=== PATIENT | male | born 2000 | race Caucasian/White ===

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

== ENCOUNTER 2021-02-21 16:18 | Emergency (ER) | payer OTHER ==
[~2021-02-21] VITALS: Ht 167.6 cm; Wt 100.8 kg
[~2021-02-21 16:18] MED LIST changes: +IBUP-1022 PO; +ROBA500T PO
[2021-02-21 16:19] VITALS: BP 142/92
[2021-02-21] MEDS ORDERED: OMEP-221 PO (16:28)
[2021-02-21] MEDS ORDERED: NAPR-1182 PO (16:28)
[2021-02-21] MEDS ORDERED: TIZA4TAB4 PO (16:28)
[2021-02-21] MEDS ORDERED: CYCL5TAB PO (17:20)
[2021-02-21] MEDS ORDERED: LIDO5DIS41 TD (17:20)
== END 2021-02-21 18:01 | disposition home or self-care (01) ==
LOC: M ED 16:18
DX: S39.012A Strain of muscle, fascia and tendon of lower back, initial encounter (principal); X58.XXXA Exposure to other specified factors, initial encounter; Y92.89 Other specified places as the place of occurrence of the external cause; F90.9 Attention-deficit hyperactivity disorder, unspecified type; Z91.030 Bee allergy status

== ENCOUNTER 2021-02-22 06:53 | Emergency (ER) | payer OTHER ==
[~2021-02-22] VITALS: Ht 167.6 cm; Wt 99.2 kg
[~2021-02-22 06:53] MED LIST changes: +CYCL5TAB PO; +LIDO5DIS41 TD; +NAPR-1182 PO; +OMEP-221 PO; +TIZA4TAB4 PO
[2021-02-22 07:56] LABS: BASO % 0.5 % (0.0-1.0); EOS % 0.3 % (0.0-3.0); HEMATOCRIT 46.7 % (42.0-52.0); HEMOGLOBIN 16.6 g/dl (13.5-17.5); LYMPH % 25.5 % (24.0-44.0); MEAN CORPUSCULAR HEMOGLOBIN 30.7 pg (27.0-33.0); MEAN CORPUSCULAR HGB CONC 35.5 g/dl (32.0-36.5); MEAN CORPUSCULAR VOLUME 86.5 fl (80.0-96.0); MONO # 0.8 10^3/uL (0.0-0.8); MONO % 10.3 % (2.0-8.0); NEUTROPHILS # 4.8 10^3/uL (1.5-8.5); NEUTROPHILS % 63.1 % (36.0-66.0); PLATELET COUNT, AUTOMATED 287 10^3/uL (150-450); WHITE BLOOD COUNT 7.6 10^3/uL (4.0-10.0)
[2021-02-22 08:18] LABS: BILIRUBIN,DIRECT 0.2 MG/DL (0.0-0.2); BILIRUBIN,TOTAL 0.5 MG/DL (0.2-1.0); TOTAL PROTEIN 7.5 GM/DL (6.4-8.2)
[2021-02-22 08:47] VITALS: BP 135/76
== END 2021-02-22 08:49 | disposition home or self-care (01) ==
LOC: M ED 06:53
DX: R10.9 Unspecified abdominal pain (principal); Z91.030 Bee allergy status

== ENCOUNTER 2021-02-24 10:21 | Emergency (ER) | payer OTHER ==
[~2021-02-24] VITALS: Ht 167.6 cm; Wt 99.8 kg
[2021-02-24] MEDS ORDERED: NAPR-1182 (10:39)
[2021-02-24] MEDS ORDERED: methocarbamoL 500 MG TAB PO ONE (11:20)
--- NOTE | 2021-02-24 11:40 | REP ---
INDICATION: back pain/constipation COMPARISON: None. TECHNIQUE: Supine view of the abdomen and pelvis. FINDINGS: Bowel gas pattern is nonspecific and without obstruction or perforation. No organomegaly. No abnormal calcifications. Skeletal structures intact. IMPRESSION: Normal abdominal radiograph. <Electronically signed by Fabian Euceda > 02/24/21 [id number]
[2021-02-24] MEDS ORDERED: KETOROLAC TROMETHAMINE 10 MG TAB PO ONE (12:00)
[2021-02-24] MEDS ORDERED: METH-1164 PO (12:08)
[2021-02-24 12:14] VITALS: BP 158/98
== END 2021-02-24 12:16 | disposition home or self-care (01) ==
LOC: M ED 10:21
DX: M54.5 Low back pain (principal); F90.9 Attention-deficit hyperactivity disorder, unspecified type; Z91.030 Bee allergy status

== ENCOUNTER 2021-02-24 16:29 | Emergency (ER) | payer OTHER ==
[~2021-02-24] VITALS: Ht 167.6 cm; Wt 99.5 kg
[~2021-02-24 16:29] MED LIST changes: +METH-1164 PO; +NAPR-1182; -OMEP-221 PO; +OMEP40CA5 PO; +TIZA10TA PO; -TIZA4TAB4 PO
[2021-02-24] MEDS ORDERED: ISOVUE-370 76% 100ML VIAL As Ordered ONE (19:48)
[2021-02-24 20:31] LABS: BASO # 0.1 10^3/uL (0.0-0.2); BASO % 0.6 % (0.0-1.0); EOS % 0.2 % (0.0-3.0); HEMATOCRIT 46.2 % (42.0-52.0); HEMOGLOBIN 16.1 g/dl (13.5-17.5); LYMPH % 29.2 % (24.0-44.0); MEAN CORPUSCULAR HGB CONC 34.8 g/dl (32.0-36.5); MEAN CORPUSCULAR VOLUME 86.2 fl (80.0-96.0); MONO # 0.9 10^3/uL (0.0-0.8); MONO % 8.5 % (2.0-8.0); NEUTROPHILS # 6.4 10^3/uL (1.5-8.5); NEUTROPHILS % 61.2 % (36.0-66.0); PLATELET COUNT, AUTOMATED 310 10^3/uL (150-450); RED BLOOD COUNT 5.36 10^6/uL (4.30-6.10); WHITE BLOOD COUNT 10.4 10^3/uL (4.0-10.0)
[2021-02-24 20:49] LABS: ERYTHROCYTE SEDIMENTATION RATE 3 mm/hr (0-15)
[2021-02-24 20:55] LABS: ALBUMIN 4.4 GM/DL (3.2-5.2); ALT/SGPT 87 U/L (12-78); BILIRUBIN,TOTAL 0.5 MG/DL (0.2-1.0); BLOOD UREA NITROGEN 7 MG/DL (7-18); CALCIUM LEVEL 9.2 MG/DL (8.5-10.1); CARBON DIOXIDE LEVEL 23 MEQ/L (21-32); CHLORIDE LEVEL 109 MEQ/L (98-107); CREATININE FOR GFR 0.75 MG/DL (0.70-1.30); GLOMERULAR FILTRATION RATE > 60.0 (>60); GLUCOSE, FASTING 90 MG/DL (70-100); POTASSIUM SERUM 3.7 MEQ/L (3.5-5.1); SODIUM LEVEL 141 MEQ/L (136-145); TOTAL PROTEIN 7.6 GM/DL (6.4-8.2)
[2021-02-24] MEDS ORDERED: KETOROLAC 30 MG/ML 1ML VIAL IV ONE (21:35)
[2021-02-24] MEDS ORDERED: NORCO 5/325MG TABLET (BULK FOR ED) PO ONE (22:15)
[2021-02-24 22:29] VITALS: BP 128/80
== END 2021-02-24 22:30 | disposition home or self-care (01) ==
LOC: M ED 16:29
DX: M62.830 Muscle spasm of back (principal); Z91.030 Bee allergy status
CPT/HCPCS: 74177; 80053; 81001; 85025; 85652; 86140; 96374; 99284; J1885; Q9967

== ENCOUNTER 2021-02-26 16:56 | Emergency (ER) | payer OTHER ==
[~2021-02-26] VITALS: Ht 167.6 cm; Wt 98.9 kg
[~2021-02-26 16:56] MED LIST changes: +OMEP-221 PO; -OMEP40CA5 PO; -TIZA10TA PO; +TIZA4TAB4 PO
[2021-02-26 17:33] LABS: BASO # 0.1 10^3/uL (0.0-0.2); BASO % 0.6 % (0.0-1.0); EOS # 0.1 10^3/uL (0.0-0.5); EOS % 0.5 % (0.0-3.0); HEMATOCRIT 46.8 % (42.0-52.0); HEMOGLOBIN 16.2 g/dl (13.5-17.5); LYMPH # 3.1 10^3/uL (1.5-5.0); LYMPH % 30.3 % (24.0-44.0); MEAN CORPUSCULAR HEMOGLOBIN 30.5 pg (27.0-33.0); MEAN CORPUSCULAR HGB CONC 34.6 g/dl (32.0-36.5); MEAN CORPUSCULAR VOLUME 88.1 fl (80.0-96.0); MONO % 9.9 % (2.0-8.0); NEUTROPHILS % 58.4 % (36.0-66.0); PLATELET COUNT, AUTOMATED 297 10^3/uL (150-450); RED BLOOD COUNT 5.31 10^6/uL (4.30-6.10); WHITE BLOOD COUNT 10.3 10^3/uL (4.0-10.0)
[2021-02-26 18:03] LABS: ALBUMIN 4.6 GM/DL (3.2-5.2); ALT/SGPT 60 U/L (12-78); BILIRUBIN,DIRECT 0.1 MG/DL (0.0-0.2); BILIRUBIN,TOTAL 0.4 MG/DL (0.2-1.0); BLOOD UREA NITROGEN 6 MG/DL (7-18); CARBON DIOXIDE LEVEL 26 MEQ/L (21-32); CHLORIDE LEVEL 107 MEQ/L (98-107); CREATININE FOR GFR 0.82 MG/DL (0.70-1.30); GLOMERULAR FILTRATION RATE > 60.0 (>60); GLUCOSE, FASTING 93 MG/DL (70-100); LIPASE 72 U/L (73-393); POTASSIUM SERUM 3.9 MEQ/L (3.5-5.1); SODIUM LEVEL 139 MEQ/L (136-145); TOTAL PROTEIN 7.6 GM/DL (6.4-8.2)
--- NOTE | 2021-02-26 19:20 | REP ---
INDICATION: upper abd pain/diarrhea COMPARISON: None. TECHNIQUE: Real time almonte scale ultrasound examination using curved array transducer. FINDINGS: Liver is normal in contour, size, and echogenicity without focal hepatic lesions identified. Pancreas is incompletely evaluated due to interposed bowel gas. The gallbladder is normal and without gallstones, wall thickening, or pericholecystic fluid. No biliary ductal dilatation is appreciated and the common bile duct measures 4.2 mm diameter. Right kidney is normal in reniform shape without hydronephrosis and measures 11.1 x 5.5 x 5.1 cm. No ascites in the visualized right upper quadrant. IMPRESSION: Normal limited right upper quadrant ultrasound <Electronically signed by Fabian Euceda > 02/26/21 [id number]
[2021-02-26 19:54] VITALS: BP 132/88
== END 2021-02-26 19:57 | disposition home or self-care (01) ==
LOC: M ED 16:56
DX: R10.30 Lower abdominal pain, unspecified (principal); R19.7 Diarrhea, unspecified; F90.9 Attention-deficit hyperactivity disorder, unspecified type

== ENCOUNTER 2021-02-28 21:55 | Emergency (ER) | payer OTHER ==
[~2021-02-28] VITALS: Ht 167.6 cm; Wt 100.5 kg
[2021-02-28 21:56] VITALS: BP 140/87
== END 2021-03-01 05:53 | disposition left against medical advice (07) ==
LOC: M ED 21:55
DX: Z53.21 Procedure and treatment not carried out due to patient leaving prior to being seen by health care provider (principal)

== ENCOUNTER 2021-03-01 21:01 | Emergency (ER) | payer OTHER ==
[~2021-03-01] VITALS: Ht 167.6 cm; Wt 100.2 kg
[2021-03-01 21:02] VITALS: BP 144/90
== END 2021-03-02 | disposition left against medical advice (07) ==
LOC: M ED 21:01
DX: Z53.21 Procedure and treatment not carried out due to patient leaving prior to being seen by health care provider (principal)

== ENCOUNTER 2021-03-02 18:44 | Emergency (ER) | payer OTHER ==
[~2021-03-02] VITALS: Ht 167.6 cm; Wt 99.1 kg
[2021-03-02] MEDS ORDERED: diazePAM 5MG TABLET PO ONE (21:25)
[2021-03-02 22:49] VITALS: BP 143/67
== END 2021-03-02 22:50 | disposition home or self-care (01) ==
LOC: M ED 18:44
DX: M54.5 Low back pain (principal); Z91.030 Bee allergy status

== ENCOUNTER → 2021-03-02 | Outpatient (CLI) | payer OTHER ==
--- NOTE | 2021-03-02 13:35 | REP ---
INDICATION: LOW BACK PAIN. COMPARISON: None. TECHNIQUE: Five views FINDINGS: Five views of the lumbosacral spine show no acute fracture, dislocation or subluxation. The intervertebral disc spaces are symmetric and well maintained. There is no spondylolysis or spondylolisthesis. The pedicles are intact bilaterally and there is no destructive osseous lesion. IMPRESSION: Unremarkable lumbosacral spine series. <Electronically signed by Sanket Vizcaino > 03/02/21 [id number]
== END ==
LOC: M PLALAB 10:44 → M PLAIMG 10:44
PROVIDERS: ATTEND Nurse Practitioner Adult Health
DX: M54.5 Low back pain (principal)

== ENCOUNTER 2021-03-03 10:43 | Emergency (ER) | payer OTHER ==
[~2021-03-03] VITALS: Ht 167.6 cm; Wt 99.5 kg
[~2021-03-03 10:43] MED LIST changes: -OMEP-221 PO; +OMEP40CA5 PO; +TIZA10TA PO; -TIZA4TAB4 PO
[2021-03-03 13:35] LABS: AMPHETAMINES LEVEL URINE NEGATIVE (NEGATIVE); BARBITURATES URINE NEGATIVE (NEGATIVE); BENZODIAZEPINES URINE NEGATIVE (NEGATIVE); CANNABINOIDS URINE NEGATIVE (NEGATIVE); COCAINE METABOLITE URINE NEGATIVE (NEGATIVE); METHADONE URINE NEGATIVE (NEGATIVE); OPIATES URINE NEGATIVE (NEGATIVE); PHENCYCLIDINE URINE NEGATIVE (NEGATIVE)
[2021-03-03 13:57] LABS: HEMOGLOBIN 16.8 g/dl (13.5-17.5); MEAN CORPUSCULAR HGB CONC 34.3 g/dl (32.0-36.5); MEAN CORPUSCULAR VOLUME 87.5 fl (80.0-96.0); PLATELET COUNT, AUTOMATED 294 10^3/uL (150-450); WHITE BLOOD COUNT 8.9 10^3/uL (4.0-10.0)
[2021-03-03 14:33] LABS: ACETAMINOPHEN LEVEL < 2.0 UG/ML (10.0-30.0); ALBUMIN 4.6 GM/DL (3.2-5.2); ALT/SGPT 37 U/L (12-78); BILIRUBIN,DIRECT 0.1 MG/DL (0.0-0.2); BILIRUBIN,TOTAL 0.5 MG/DL (0.2-1.0); BLOOD UREA NITROGEN 14 MG/DL (7-18); CALCIUM LEVEL 9.4 MG/DL (8.5-10.1); CARBON DIOXIDE LEVEL 28 MEQ/L (21-32); CHLORIDE LEVEL 107 MEQ/L (98-107); ETHYL ALCOHOL (ETHANOL) < 0.003 % (0.000-0.010); GLOMERULAR FILTRATION RATE > 60.0 (>60); GLUCOSE, FASTING 90 MG/DL (70-100); POTASSIUM SERUM 4.4 MEQ/L (3.5-5.1); SALICYLATE LEVEL < 1.7 MG/DL (5.0-30.0); SODIUM LEVEL 140 MEQ/L (136-145); TOTAL PROTEIN 7.8 GM/DL (6.4-8.2)
[2021-03-03 15:16] VITALS: BP 145/89
== END 2021-03-03 15:59 | disposition home or self-care (01) ==
LOC: M ED 10:43
DX: F41.9 Anxiety disorder, unspecified (principal); Z91.030 Bee allergy status

== ENCOUNTER 2021-03-07 08:08 | Inpatient (IN) | payer MEDICAID, OTHER ==
[~2021-03-07] VITALS: Ht 170.2 cm; Wt 99.4 kg
[~2021-03-07 08:08] MED LIST changes: +OMEP-221 PO; -OMEP40CA5 PO; -TIZA10TA PO; +TIZA4TAB4 PO
[2021-03-07] MEDS ORDERED: NICOTINE 21MG/24HR 1 EA TRANSDERMAL TD SCH (09:00)
--- NOTE | 2021-03-07 10:21 | REP ---
INDICATION: left testicle pain COMPARISON: None. TECHNIQUE: Strickland scale and color Doppler evaluation using linear and curved array transducer with color Doppler evaluation. FINDINGS: The testicles and epididymi are relatively normal in contour, size, echogenicity, vascularity and overall appearance. There is no evidence for intratesticular mass lesion, infectious/inflammatory process, or torsion. No obvious hydroceles or varicoceles are identified. Right testicle measures 3.1 x 2.3 x 3.0 cm. Left testicle measures 3.7 x 2.2 x 2.7 cm. IMPRESSION: normal scrotal ultrasound. <Electronically signed by Fabian Euceda > 03/07/21 [id number]
[2021-03-07] MEDS ORDERED: ALPRAZolam 0.25 MG TAB PO ONE (12:10)
[2021-03-07] MEDS ORDERED: XANA0.25 PO (13:06)
[2021-03-07 15:08] LABS: BASO # 0.1 10^3/uL (0.0-0.2); BASO % 0.6 % (0.0-1.0); EOS % 0.2 % (0.0-3.0); HEMATOCRIT 47.5 % (42.0-52.0); HEMOGLOBIN 16.5 g/dl (13.5-17.5); LYMPH # 2.7 10^3/uL (1.5-5.0); LYMPH % 30.2 % (24.0-44.0); MEAN CORPUSCULAR HEMOGLOBIN 30.2 pg (27.0-33.0); MEAN CORPUSCULAR HGB CONC 34.7 g/dl (32.0-36.5); MEAN CORPUSCULAR VOLUME 86.8 fl (80.0-96.0); MONO # 0.7 10^3/uL (0.0-0.8); MONO % 7.8 % (2.0-8.0); NEUTROPHILS # 5.5 10^3/uL (1.5-8.5); NEUTROPHILS % 60.8 % (36.0-66.0); PLATELET COUNT, AUTOMATED 285 10^3/uL (150-450); RED BLOOD COUNT 5.47 10^6/uL (4.30-6.10)
[2021-03-07] MEDS ORDERED: IBUPROFEN 800 MG TAB PO ONE (15:20)
[2021-03-07 15:30] LABS: AMPHETAMINES LEVEL URINE NEGATIVE (NEGATIVE); BARBITURATES URINE NEGATIVE (NEGATIVE); BENZODIAZEPINES URINE NEGATIVE (NEGATIVE); CANNABINOIDS URINE NEGATIVE (NEGATIVE); COCAINE METABOLITE URINE NEGATIVE (NEGATIVE); METHADONE URINE NEGATIVE (NEGATIVE); OPIATES URINE NEGATIVE (NEGATIVE); PHENCYCLIDINE URINE NEGATIVE (NEGATIVE)
[2021-03-07 15:50] LABS: ACETAMINOPHEN LEVEL < 2.0 UG/ML (10.0-30.0); ALBUMIN 3.9 GM/DL (3.2-5.2); ALT/SGPT 30 U/L (12-78); BILIRUBIN,DIRECT 0.1 MG/DL (0.0-0.2); BILIRUBIN,TOTAL 0.4 MG/DL (0.2-1.0); BLOOD UREA NITROGEN 6 MG/DL (7-18); CALCIUM LEVEL 9.1 MG/DL (8.5-10.1); CARBON DIOXIDE LEVEL 26 MEQ/L (21-32); CHLORIDE LEVEL 110 MEQ/L (98-107); CREATININE FOR GFR 0.77 MG/DL (0.70-1.30); ETHYL ALCOHOL (ETHANOL) < 0.003 % (0.000-0.010); GLOMERULAR FILTRATION RATE > 60.0 (>60); GLUCOSE, FASTING 106 MG/DL (70-100); POTASSIUM SERUM 3.9 MEQ/L (3.5-5.1); SALICYLATE LEVEL < 1.7 MG/DL (5.0-30.0); SODIUM LEVEL 143 MEQ/L (136-145); TOTAL PROTEIN 7.6 GM/DL (6.4-8.2)
[2021-03-07 16:09] LABS: RSV AMPLIFICATION NEGATIVE (NEGATIVE)
[2021-03-07] MEDS ORDERED: MAALOX 30 ML SUSP *UDC PO PRN (17:05)
[2021-03-07] MEDS ORDERED: MOM 30ML SUSPENSION UDC PO PRN (17:05)
[2021-03-07 18:38] VITALS: BP 151/96
[2021-03-07] MEDS: OLANZapine ORAL DISINTEGRATING TAB 5MG PO PRN (19:28)
[2021-03-07] MEDS ORDERED: IBUPROFEN 400MG TAB PO PRN (23:00)
[2021-03-08 06:28] VITALS: BP 121/70
[2021-03-08] MEDS: OLANZapine ORAL DISINTEGRATING TAB 5MG PO PRN (10:42)
--- NOTE | 2021-03-08 11:19 | MHHPEPDOC ---
General Date Of Admission: Mar 07, 2021 Legal Status: 9.39 Chief Complaint Highlight about hearing voices and feeling suicidal. I just wanted to get some attention for my back problem. ". History of Present Illness HISTORY OF THE PRESENT ILLNESS: Patient is a 21 -year-old , male, who [has no previous psychiatric history daughter. Patient came to the emergency room initially with the complain about his back which has been bothering him since January of this year. He stated that he was having back pain but his primary doctor could not fix it and discharged him so he came to the emergency room seeking help but when tolerated that there was nothing wrong and he can be discharged patient stated that he got upset and he told them that he was hearing voices and having thoughts of suicide. Patient stated that he is not depressed and he has no suicidal thoughts and he never heard any voices he just slightly so he can get admitted so he can get further treatment for his back pain. He does not appear to be in any acute distress and is not showing any other psychotic symptoms. He stated that he has been having back problem for 2 months and no one can seem to figure out what is wrong and he is concerned that he may have the same kind of problem like his father who apparently had to some type of medical issues. He is having more anxiety and does not feel comfortable for being in psychiatric unit and does not feel he needs any psychiatric treatment and is requesting discharge ELEAZAR.]. Psychiatric Review of Systems Depression (2 or more weeks): denies (Patient claims he lied about depression) Aparna (4 or more days of): denies Psychosis: denies PTSD: denies Anxiety: situational anxiety Past Psychiatric History Previous Psychiatric Diagnosis: . No previous treatment no previous hospitalization Previous Psychiatric Admissions: . Suicide Attempts: . No previous suicidal attempt Psychiatric Follow-up: . Not in any active treatment Psychiatric medications: . No psychotropic medication Past Medical History Medical Problems Been having back pain for the past 2 months Head Injury: No Seizures: No Hospitalizations: No Surgeries: No Family Medical/Psychiatric HX Medical Problems Noncontributory Psychiatric Disorders: No Addiction: No Suicide Attemps/Completions: No Addiction History denies (Tox screen is negative) Social History Childhood: . Unremarkable Abuse/Trauma:. Denies any abuse history Current Living Situation: . Lives with his parents Education: . High school Employment: . Works at [employer] Social Support: . Parent Legal: . No legal issues Marital: . Single Mental Status Examination General Appearance: ds/not appear stated age Build: average Demeanor: average Eye Contact: average Activity: average Behavior: cooperative Speech: clear, spontaneous, normal volume Mood: euthymic, anxious Mood Denies any ongoing depression or anxiety Affect: appropriate, congruent, anxious Thought Process: logical/linear Thought Content (Delusions): none reported, denies SI, HI, AVH Thought Content (Other): none reported Thought Content (Aggressive): none reported Perception (Hallucinations): none reported Perception (Other): none reported Cognition (Impairment of): none reported Cognition(Intelligence Est.): average Oriented: Awake, Alert, Oriented times three Insight: fair Judgment: Poor Psychosis: Denies Diagnoses Adjustment disorder with mixed emotion A-FIB/CHADSVASC A-FIB History Current/History of A-Fib/PAF?: No Current PO Anticoag Therapy: No Age/Risk Factor Scoring CHADSVASC: CHADSVASC Response (Comments) Value Age Risk Factor Age < 65 years old 0 Gender Risk Factor Male 0 Hx of CHF No 0 Hx of HTN No 0 Hx of Stroke/TIA/or VTE No 0 Hx of Diabetes No 0 Hx of Vascular Disease No 0 Total 0 Treatment Treatment ordered: NONE Assessment The patient does not appear to be clinically depressed and does not appear to be suicidal and patient strongly denies any.We will discharge since there is no grounds for 939 legal status Initial Treatment Plan 1. Patient was admitted on a 9.39 status. 2. Complete history was obtained. 3. With patients permission, family will be contacted and database will be expanded. 4. Patients medication regimen will be reviewed and changed accordingly. 5. Patient will be provided with protected environment. 6. Patient will be treated with individual, group, and milieu therapies. 7. Patient will receive supportive psych-education. 8. Discharge planning will commence immediately. 9. Outpatient follow-up treatment will be strongly recommended. 10. The initial treatment plan will focus initially on: * Depression. * Risk for suicide. ESTIMATED LENGTH OF STAY discharged today TIME SPENT COUNSELING AND COORDINATING INITIAL CARE: 40 minutes. Tobacco Cessation Screen If Patient is a Smoker Patient is a non-smoker N/A-No Antipsychotics Vital Signs Vital Signs Date Time Temp Pulse Resp B/P (MAP) Pulse Ox O2 Delivery O2 Flow Rate FiO2 03/08/21 06:28 98.4 102 20 121/70 (87) 96 Room Air Laboratory Data 24H Labs Laboratory Tests 2 03/07/21 09:54: Urine Color STRAW, Urine Appearance CLEAR, Urine pH 7.0, Urine Specific Stephenson 1.004, Urine Protein NEGATIVE, Urine Glucose (UA) NEGATIVE, Urine Ketones NEGATIVE, Urine Blood NEGATIVE, Urine Nitrite NEGATIVE, Urine Bilirubin NEGATIVE , Urine Urobilinogen 0.2, Urine Leukocyte Esterase NEGATIVE, Urine WBC (Auto) 0, Urine RBC (Auto) 1, Urine Hyaline Casts (Auto) 0, Urine Bacteria (Auto) NEGATIVE, Urine Squamous Epithelial Cells 0, Urine Sperm (Auto) 03/07/21 14:56: Immature Granulocyte % (Auto) 0.4, Neutrophils (%) (Auto) 60.8, Lymphocytes (%) (Auto) 30.2, Monocytes (%) (Auto) 7.8, Eosinophils (%) (Auto) 0.2, Basophils (%) (Auto) 0.6, Neutrophils # (Auto) 5.5, Lymphocytes # (Auto) 2.7, Monocytes # (Auto) 0.7, Eosinophils # (Auto) 0.0, Basophils # (Auto) 0.1, Nucleated Red Blood Cells % (auto) 0.0, Anion Gap 7L, Glomerular Filtration Rate > 60.0, Calcium Level 9.1, Total Bilirubin 0.4, Direct Bilirubin 0.1, Aspartate Amino Transf (AST/SGOT) 21, Alanine Aminotransferase (ALT/SGPT) 30, Alkaline Phosphat ase 186H, Total Protein 7.6, Albumin 3.9, Albumin/Globulin Ratio 1.1, Thyroid Stimulating Hormone (TSH) 1.110, Salicylates Level < 1.7L, Urine Opiates Screen NEGATIVE, Urine Methadone Screen NEGATIVE, Acetaminophen Level < 2.0L, Urine Barbiturates Screen NEGATIVE, Urine Phencyclidine Screen NEGATIVE, Urine Amphetamines Screen NEGATIVE, Urine Benzodiazepines Screen NEGATIVE, Urine Cocaine Metabolite Screen NEGATIVE, Urine Cannabinoids Screen NEGATIVE, Ethyl Alcohol Level < 0.003 03/07/21 15:15: Coronavirus (COVID-19)(PCR) NEGATIVE, Influenza Type A (RT-PCR) NEGATIVE, Influe nza Type B (RT-PCR) NEGATIVE, Respiratory Syncytial Virus (PCR) NEGATIVE CBC/BMP Laboratory Tests 03/07/21 14:56 Medications No Active Prescriptions or Reported Meds Allergies Coded Allergies: bee venom protein (honey bee) (Verified Allergy, Unknown, throat swelling, 02/21/21) FLORIAN KAN M.D. Mar 08, 2021 10:30
--- NOTE | 2021-03-08 15:10 | CR.PDOC ---
General Date of Consultation: Mar 08, 2021 Referring Provider: Heron Smith MD Attending Physician: CELSO TRIVEDI MD Consultation REASON FOR CONSULTATION/CHIEF COMPLAINT: [Medical management ,back pain]. HISTORY OF PRESENT ILLNESS: [This is a 21 years old white male past medical history of anxiety disorder, as per family he has been obsessed with his health and he thinks he is actively dying, first he complained of abdominal pain he saw his PCP who referred him to GI again he complained of scrotal pain in ED where he had a scrotal sonogram done which was negative now is complaining of back pain. Patient is very anxious and not a good historian history was obtained all from his medical records.]. ALLERGIES: Please see below. HOME MEDICATIONS: Please see below. PAST MEDICAL HISTORY: Anxiety disorder PAST SURGICAL HISTORY: None FAMILY HISTORY: Anxiety disorder in the family including his father SOCIAL HISTORY: He is single lives with his family denies smoking alcohol or drug abuse REVIEW OF SYSTEMS: CONSTITUTIONAL: [Generalized anxiety]. HEENT: [None]. CARDIOVASCULAR: [None r]. RESPIRATORY: [None]. GENITOURINARY: [None]. MUSCULOSKELETAL: [Back pain]. GASTROINTESTINAL: [Benign]. SKIN: [None]. NEUROLOGICAL: [None]. PSYCHIATRIC: [Anxiety disorder]. ENDOCRINE: [None]. HEMATOLOGIC/LYMPHATIC: [None]. ALLERGIC/IMMUNOLOGIC: [None]. PHYSICAL EXAMINATION: VITAL SIGNS: Please see below. GENERAL APPEARANCE: [Within normal limit afebrile]. HEENT: [PERRLA extraocular muscles intact]. RESPIRATORY: [Clear to A&P]. CARDIOVASCULAR: [S1-S2 regular]. ABDOMEN: [Benign]. EXTREMITIES: [No clubbing sinus edema]. NEUROLOGICAL: [No focal motor or sensory deficit examination of the cervical thoracic lumbar spine is within normal range]. PSYCHIATRIC: [Normal]. LABORATORY DATA: Please see below. ASSESSMENT/PLAN: #1 Anxiety disorder #2 musculoskeletal pain #3 auditory hallucinations and suicidal Patient examination of his cervical thoracic lumbar spine is within normal limit most likely musculoskeletal pain Ibuprofen as needed for back pain as per orders, no further medical intervention needed at the present time. Further work-up if needed as an outpatient with PCP Psychiatric management and counseling as per psychiatric department Vital Signs/I&O Vital Signs Date Time Temp Pulse Resp B/P (MAP) Pulse Ox O2 Delivery O2 Flow Rate FiO2 7/14/21 06:28 98.4 102 20 121/70 (87) 96 Room Air Laboratory Data Labs 24H Laboratory Tests 2 03/07/21 15:15: Coronavirus (COVID-19)(PCR) NEGATIVE, Influenza Type A (RT-PCR) NEGATIVE, Influenza Type B (RT-PCR) NEGATIVE, Respiratory Syncytial Virus (PCR) NEGATIVE Allergies Coded Allergies: bee venom protein (honey bee) (Verified Allergy, Unknown, throat swelling, 02/21/21) Home Medications No Active Prescriptions or Reported Meds CELSO TRIVEDI MD Mar 08, 2021 15:10
--- NOTE | 2021-03-10 11:12 | MHDSPDOC ---
[facility] Discharge Summary Discharge Summary DATE OF ADMISSION: Mar 07, 2021 at 17:05 DATE OF DISCHARGE: Mar 08, 2021 at 15:07 DISCHARGE DIAGNOSES: 1.. Adjustment disorder with mixed emotion 2.. Rule out somatization disorder REASON FOR ADMISSION: 21-year-old male with no prior psychiatric history admitted after he reported depression and suicidal thoughts. After admission the patient however claims that he lied about his depression just to get admitted so he can get treatment for his back pain. Patient apparently has been complaining of problem with his back for the past month and had a several visits to the emergency room and his primary care doctor and they could not find any abnormal finding and patient stated that he was upset and frustrated that nobody can help and that is why he lied about depression and suicidal thoughts. CONSULTANTS INVOLVED: TREATMENT AND PROGRESS ON THE UNIT : The patient maintains that he has no emotional problem and he is not depressed and he does not have any suicidal plan or thoughts and only came in because he wanted to have his back treated. He was demanding discharge and continues to deny any psychiatric issues. He denies any need for psychotropic medicine and does not want any psychiatric follow-up treatment. HOSPITAL COURSE: He continued to deny any psychiatric problem and maintained good control and will be discharged per his request since he does not meet the listing for involuntary retention. DISCHARGE ASSESSMENT: Patient does not appear to be psychotic depressed or suicidal MENTAL STATUS EXAMINATION ON DISCHARGE: Patient is a 21-year old male, who is in no acute distress. Speech is coherent rational. Language skills are fair. Thought processes including: Organized. Thought content: Somewhat preoccupied with the somatic issues but denies any depression or psychosis. Abstract reasoning, and computation: Fair. Description of associations: Organized. Description of abnormal or psychotic thoughts: No gross psychotic symptoms. Judgment: Fair. Insight: Fair. Orientation to well oriented. Recent and remote memory: No impairment. Attention span and concentration: Fair. Language:. Fund of knowledge:. Mood: Moderately anxious but denies any depressed mood. Affect: Good range and appropriate. MEDICATIONS ON DISCHARGE: -For. No psychotropic medicine was given -For. -For. PLAN/FOLLOWUP ARRANGEMENTS: Patient declined any mental health appointment. The amount of time spent in the coordination of care for this patient was approximately 35 minutes. ETOH/Disorder Med Rx ETOH/DRUG DISORDER RX: N/A Vital Signs/I&Os Vital Signs Date Time Temp Pulse Resp B/P (MAP) Pulse Ox O2 Delivery O2 Flow Rate FiO2 03/08/21 06:28 98.4 102 20 121/70 (87) 96 Room Air Medications No Active Prescriptions or Reported Meds Allergies Coded Allergies: bee venom protein (honey bee) (Verified Allergy, Unknown, throat swelling, 02/21/21) FLORIAN KAN M.D. Mar 10, 2021 11:07
== END 2021-03-08 15:07 | disposition home or self-care (01) | DRG 755 ==
LOC: M ED 08:08 → M ED INP 17:05 → M PSY 18:24
PROVIDERS: ADMIT Psychiatry & Neurology Psychiatry; ATTEND Psychiatry & Neurology Psychiatry
DX: F43.25 Adjustment disorder with mixed disturbance of emotions and conduct (principal); F45.0 Somatization disorder; Z20.822 Contact with and (suspected) exposure to COVID-19; Z91.030 Bee allergy status

== ENCOUNTER 2021-03-09 19:49 | Emergency (ER) | payer MEDICAID, OTHER ==
[~2021-03-09] VITALS: Ht 167.6 cm; Wt 101.6 kg
[~2021-03-09 19:49] MED LIST changes: +XANA0.25 PO
[2021-03-09 19:50] VITALS: BP 141/85
== END 2021-03-09 22:01 | disposition left against medical advice (07) ==
LOC: M ED 19:49
DX: Z53.21 Procedure and treatment not carried out due to patient leaving prior to being seen by health care provider (principal)

== ENCOUNTER 2021-03-10 11:34 | Emergency (ER) | payer MEDICAID, OTHER ==
[~2021-03-10] VITALS: Ht 167.6 cm; Wt 100.9 kg
[2021-03-10 13:29] LABS: BASO # 0.1 10^3/uL (0.0-0.2); BASO % 0.7 % (0.0-1.0); EOS # 0.1 10^3/uL (0.0-0.5); EOS % 0.5 % (0.0-3.0); HEMATOCRIT 46.1 % (42.0-52.0); HEMOGLOBIN 15.9 g/dl (13.5-17.5); LYMPH # 2.3 10^3/uL (1.5-5.0); LYMPH % 23.7 % (24.0-44.0); MEAN CORPUSCULAR HGB CONC 34.5 g/dl (32.0-36.5); MONO # 1.4 10^3/uL (0.0-0.8); MONO % 14.3 % (2.0-8.0); NEUTROPHILS # 5.7 10^3/uL (1.5-8.5); NEUTROPHILS % 60.3 % (36.0-66.0); PLATELET COUNT, AUTOMATED 286 10^3/uL (150-450); WHITE BLOOD COUNT 9.5 10^3/uL (4.0-10.0)
[2021-03-10 14:02] LABS: ALBUMIN 3.9 GM/DL (3.2-5.2); ALT/SGPT 43 U/L (12-78); BILIRUBIN,DIRECT < 0.1 MG/DL (0.0-0.2); BILIRUBIN,TOTAL 0.4 MG/DL (0.2-1.0); BLOOD UREA NITROGEN 12 MG/DL (7-18); CALCIUM LEVEL 8.6 MG/DL (8.5-10.1); CARBON DIOXIDE LEVEL 24 MEQ/L (21-32); CHLORIDE LEVEL 110 MEQ/L (98-107); GLOMERULAR FILTRATION RATE > 60.0 (>60); GLUCOSE, FASTING 80 MG/DL (70-100); LIPASE 78 U/L (73-393); POTASSIUM SERUM 3.9 MEQ/L (3.5-5.1); SODIUM LEVEL 139 MEQ/L (136-145); TOTAL PROTEIN 7.3 GM/DL (6.4-8.2)
[2021-03-10 14:33] VITALS: BP 127/85
--- NOTE | 2021-03-11 10:49 | ECGEPIP ---
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 Order Number: [id number] Reading MD: Bri Stock Measurements Intervals [place] Rate: 117 P: 48 WY: 136 QRS: 42 QRSD: 90 T: 29 QT: 302 QTc: 421 Interpretive Statements Sinus tachycardia increased rate 03/01/21 Electronically Signed on 03-11-2021 10:49:28 EDT by Bri Stock
== END 2021-03-10 14:52 | disposition home or self-care (01) ==
LOC: M ED 11:34
DX: R19.7 Diarrhea, unspecified (principal); K62.5 Hemorrhage of anus and rectum; F41.9 Anxiety disorder, unspecified; S13.4XXA Sprain of ligaments of cervical spine, initial encounter; X58.XXXA Exposure to other specified factors, initial encounter; Y92.89 Other specified places as the place of occurrence of the external cause; Z91.030 Bee allergy status

== ENCOUNTER 2021-03-12 15:31 | Emergency (ER) | payer OTHER ==
[~2021-03-12] VITALS: Ht 167.6 cm; Wt 100.7 kg
[2021-03-12 17:03] LABS: HEMATOCRIT 45.6 % (42.0-52.0); HEMOGLOBIN 15.7 g/dl (13.5-17.5); MEAN CORPUSCULAR HGB CONC 34.4 g/dl (32.0-36.5); MEAN CORPUSCULAR VOLUME 87.2 fl (80.0-96.0); PLATELET COUNT, AUTOMATED 260 10^3/uL (150-450); RED BLOOD COUNT 5.23 10^6/uL (4.30-6.10)
[2021-03-12 17:39] LABS: ACETAMINOPHEN LEVEL < 2.0 UG/ML (10.0-30.0); ALBUMIN 3.6 GM/DL (3.2-5.2); ALT/SGPT 112 U/L (12-78); BILIRUBIN,DIRECT < 0.1 MG/DL (0.0-0.2); BILIRUBIN,TOTAL 0.2 MG/DL (0.2-1.0); BLOOD UREA NITROGEN 13 MG/DL (7-18); CALCIUM LEVEL 8.7 MG/DL (8.5-10.1); CARBON DIOXIDE LEVEL 24 MEQ/L (21-32); CHLORIDE LEVEL 110 MEQ/L (98-107); CREATININE FOR GFR 0.83 MG/DL (0.70-1.30); ETHYL ALCOHOL (ETHANOL) < 0.003 % (0.000-0.010); GLOMERULAR FILTRATION RATE > 60.0 (>60); GLUCOSE, FASTING 122 MG/DL (70-100); POTASSIUM SERUM 3.9 MEQ/L (3.5-5.1); SALICYLATE LEVEL < 1.7 MG/DL (5.0-30.0); SODIUM LEVEL 142 MEQ/L (136-145); TOTAL PROTEIN 7.2 GM/DL (6.4-8.2)
--- NOTE | 2021-03-12 18:01 | REP ---
INDICATION: right back pain and radicular symptoms. COMPARISON: None. FINDINGS: Five views of the lumbosacral spine show no acute fracture, dislocation or subluxation. The intervertebral disc spaces are symmetric and well maintained. There is no spondylolysis or spondylolisthesis. The pedicles are intact bilaterally and there is no destructive osseous lesion. Lateral view shows slight loss of lordosis which may reflect some mild spasm IMPRESSION: Some mild loss of lordosis on the lateral view which may reflect spasm. Otherwise unremarkable lumbosacral spine series. Stable exam from 03/02/2021. <Electronically signed by Marin Nelson > 03/12/21 [id number]
[2021-03-12] MEDS ORDERED: APAP325T4 PO (19:14)
[2021-03-12] MEDS ORDERED: XANA0.25 PO (19:14)
[2021-03-12 19:41] LABS: AMPHETAMINES LEVEL URINE NEGATIVE (NEGATIVE); BARBITURATES URINE NEGATIVE (NEGATIVE); BENZODIAZEPINES URINE NEGATIVE (NEGATIVE); CANNABINOIDS URINE NEGATIVE (NEGATIVE); COCAINE METABOLITE URINE NEGATIVE (NEGATIVE); METHADONE URINE NEGATIVE (NEGATIVE); OPIATES URINE NEGATIVE (NEGATIVE); PHENCYCLIDINE URINE NEGATIVE (NEGATIVE)
[2021-03-12] MEDS ORDERED: ACETAMINOPHEN TAB 650MG DOSE (2X325MG) PO ONE (19:55)
[2021-03-12] MEDS ORDERED: CYCL5TAB PO (22:22)
[2021-03-12] MEDS ORDERED: IBUP-1022 PO (22:22)
[2021-03-12 22:47] VITALS: BP 127/82
[2021-03-13] MEDS ORDERED: IBUP-1022 PO (18:13)
[2021-03-13] MEDS ORDERED: CYCL5TAB PO (18:13)
== END 2021-03-12 23:08 | disposition home or self-care (01) ==
LOC: M ED 15:31
DX: R45.851 Suicidal ideations (principal); M54.5 Low back pain; F33.9 Major depressive disorder, recurrent, unspecified; Z91.030 Bee allergy status

== ENCOUNTER 2021-03-13 13:13 | Emergency (ER) | payer OTHER ==
[~2021-03-13] VITALS: Ht 170.2 cm; Wt 99.8 kg
[~2021-03-13 13:13] MED LIST changes: +APAP325T4 PO
[2021-03-13 14:56] LABS: HEMATOCRIT 45.7 % (42.0-52.0); HEMOGLOBIN 15.7 g/dl (13.5-17.5); MEAN CORPUSCULAR HGB CONC 34.4 g/dl (32.0-36.5); MEAN CORPUSCULAR VOLUME 87.4 fl (80.0-96.0); PLATELET COUNT, AUTOMATED 270 10^3/uL (150-450); RED BLOOD COUNT 5.23 10^6/uL (4.30-6.10); WHITE BLOOD COUNT 8.1 10^3/uL (4.0-10.0)
[2021-03-13 15:25] LABS: ACETAMINOPHEN LEVEL < 2.0 UG/ML (10.0-30.0); ALBUMIN 3.9 GM/DL (3.2-5.2); ALT/SGPT 185 U/L (12-78); BILIRUBIN,DIRECT < 0.1 MG/DL (0.0-0.2); BILIRUBIN,TOTAL 0.3 MG/DL (0.2-1.0); BLOOD UREA NITROGEN 12 MG/DL (7-18); CALCIUM LEVEL 9.1 MG/DL (8.5-10.1); CARBON DIOXIDE LEVEL 23 MEQ/L (21-32); CHLORIDE LEVEL 109 MEQ/L (98-107); CREATININE FOR GFR 0.69 MG/DL (0.70-1.30); ETHYL ALCOHOL (ETHANOL) < 0.003 % (0.000-0.010); GLOMERULAR FILTRATION RATE > 60.0 (>60); GLUCOSE, FASTING 90 MG/DL (70-100); POTASSIUM SERUM 4.3 MEQ/L (3.5-5.1); SALICYLATE LEVEL < 1.7 MG/DL (5.0-30.0); SODIUM LEVEL 141 MEQ/L (136-145); TOTAL PROTEIN 7.4 GM/DL (6.4-8.2)
[2021-03-13] MEDS ORDERED: IBUPROFEN 800 MG TAB PO ONE (16:05)
--- NOTE | 2021-03-13 16:58 | REP ---
INDICATION: LEFT MID/UPPER BACK PAIN. COMPARISON: None. TECHNIQUE: Three views of the thoracic spine are presented. FINDINGS: Thoracic vertebral body heights are preserved. Alignment is normal. Disc spaces are maintained. Pedicles and posterior elements are intact. No paravertebral soft tissue mass is seen. IMPRESSION: Negative radiographs of the thoracic spine. <Electronically signed by Chaitanya Smart > 03/13/21 [id number]
--- NOTE | 2021-03-13 16:59 | REP ---
INDICATION: LEFT MID/UPPER BACK PAIN. COMPARISON: None. TECHNIQUE: Seven views of the cervical spine are provided. FINDINGS: Lateral views done in flexion extension and neutral position show straightening but no subluxation or instability. Vertebral body heights are preserved. Disc spaces are maintained. Prevertebral soft tissues are not widened. AP and open-mouth odontoid views are unremarkable. Oblique images demonstrate intact neural foramina bilaterally at each cervical level and normally aligned facets. IMPRESSION: Negative radiographs of the cervical spine. <Electronically signed by Chaitanya Smart > 03/13/21 [id number]
[2021-03-13] MEDS ORDERED: IBUP-1022 PO (18:13)
[2021-03-13] MEDS ORDERED: CYCL5TAB PO (18:13)
[2021-03-13 18:31] LABS: ERYTHROCYTE SEDIMENTATION RATE 3 mm/hr (0-15)
[2021-03-13 18:34] VITALS: BP 141/87
== END 2021-03-13 18:36 | disposition home or self-care (01) ==
LOC: M ED 13:13
DX: F41.9 Anxiety disorder, unspecified (principal); M54.9 Dorsalgia, unspecified; B19.9 Unspecified viral hepatitis without hepatic coma; F90.9 Attention-deficit hyperactivity disorder, unspecified type; K58.9 Irritable bowel syndrome, unspecified; Z91.030 Bee allergy status

== ENCOUNTER 2021-03-17 13:56 | Emergency (ER) | payer MEDICAID, OTHER ==
[~2021-03-17] VITALS: Ht 167.6 cm; Wt 100.0 kg
[2021-03-17] MEDS ORDERED: ONDANSETRON 4 MG ORAL DISINTEGRATING TAB PO ONE (16:20)
[2021-03-17 16:47] LABS: BASO # 0.1 10^3/uL (0.0-0.2); BASO % 0.7 % (0.0-1.0); EOS % 0.4 % (0.0-3.0); HEMATOCRIT 46.5 % (42.0-52.0); HEMOGLOBIN 16.2 g/dl (13.5-17.5); LYMPH # 2.2 10^3/uL (1.5-5.0); LYMPH % 20.6 % (24.0-44.0); MEAN CORPUSCULAR HEMOGLOBIN 30.3 pg (27.0-33.0); MEAN CORPUSCULAR HGB CONC 34.8 g/dl (32.0-36.5); MEAN CORPUSCULAR VOLUME 86.9 fl (80.0-96.0); MONO # 0.9 10^3/uL (0.0-0.8); MONO % 8.4 % (2.0-8.0); NEUTROPHILS # 7.5 10^3/uL (1.5-8.5); NEUTROPHILS % 69.4 % (36.0-66.0); PLATELET COUNT, AUTOMATED 278 10^3/uL (150-450); RED BLOOD COUNT 5.35 10^6/uL (4.30-6.10); WHITE BLOOD COUNT 10.8 10^3/uL (4.0-10.0)
[2021-03-17 17:08] LABS: BLOOD UREA NITROGEN 8 MG/DL (7-18); CARBON DIOXIDE LEVEL 27 MEQ/L (21-32); CHLORIDE LEVEL 105 MEQ/L (98-107); CREATININE FOR GFR 0.82 MG/DL (0.70-1.30); GLOMERULAR FILTRATION RATE > 60.0 (>60); GLUCOSE, FASTING 88 MG/DL (70-100); SODIUM LEVEL 140 MEQ/L (136-145)
[2021-03-17 17:09] LABS: CALCIUM LEVEL 9.1 MG/DL (8.5-10.1)
[2021-03-17] MEDS ORDERED: ONDA4TAB6 PO (18:14)
[2021-03-17 18:20] VITALS: BP 126/81
== END 2021-03-17 18:43 | disposition home or self-care (01) ==
LOC: M ED 13:56
DX: R11.10 Vomiting, unspecified (principal); F41.9 Anxiety disorder, unspecified; F90.9 Attention-deficit hyperactivity disorder, unspecified type; Z79.899 Other long term (current) drug therapy; Z91.030 Bee allergy status
CPT/HCPCS: 36415; 80048; 85025; 99283; Q0162

== ENCOUNTER 2021-03-19 10:00 | Emergency (ER) | payer OTHER ==
[~2021-03-19] VITALS: Ht 167.6 cm; Wt 101.2 kg
[~2021-03-19 10:00] MED LIST changes: +ONDA4TAB6 PO
[2021-03-19] MEDS ORDERED: PROM25TA12 PO (12:32)
[2021-03-19 12:48] VITALS: BP 119/79
== END 2021-03-19 12:49 | disposition home or self-care (01) ==
LOC: M ED 10:00
DX: M54.5 Low back pain (principal); R11.0 Nausea; Z91.030 Bee allergy status

== ENCOUNTER 2021-03-20 14:28 | Emergency (ER) | payer OTHER ==
[~2021-03-20] VITALS: Ht 167.6 cm; Wt 101.7 kg
[~2021-03-20 14:28] MED LIST changes: +PROM25TA12 PO
[2021-03-20] MEDS ORDERED: IBUPROFEN 400MG TAB PO ONE (14:45)
[2021-03-20 16:42] VITALS: BP 132/88
== END 2021-03-20 16:44 | disposition home or self-care (01) ==
LOC: M ED 14:28
DX: G89.29 Other chronic pain (principal); M54.9 Dorsalgia, unspecified; Z91.030 Bee allergy status

== ENCOUNTER 2021-03-22 13:48 | Inpatient (IN) | payer MEDICAID, OTHER ==
[~2021-03-22] VITALS: Ht 167.6 cm; Wt 100.0 kg
[2021-03-22 15:05] LABS: HEMATOCRIT 44.1 % (42.0-52.0); HEMOGLOBIN 15.4 g/dl (13.5-17.5); MEAN CORPUSCULAR HEMOGLOBIN 30.2 pg (27.0-33.0); MEAN CORPUSCULAR HGB CONC 34.9 g/dl (32.0-36.5); MEAN CORPUSCULAR VOLUME 86.5 fl (80.0-96.0); PLATELET COUNT, AUTOMATED 279 10^3/uL (150-450); WHITE BLOOD COUNT 10.3 10^3/uL (4.0-10.0)
[2021-03-22 15:30] LABS: AMPHETAMINES LEVEL URINE NEGATIVE (NEGATIVE); BARBITURATES URINE NEGATIVE (NEGATIVE); BENZODIAZEPINES URINE NEGATIVE (NEGATIVE); CANNABINOIDS URINE NEGATIVE (NEGATIVE); COCAINE METABOLITE URINE NEGATIVE (NEGATIVE); METHADONE URINE NEGATIVE (NEGATIVE); OPIATES URINE NEGATIVE (NEGATIVE); PHENCYCLIDINE URINE NEGATIVE (NEGATIVE)
[2021-03-22 15:52] LABS: ACETAMINOPHEN LEVEL < 2.0 UG/ML (10.0-30.0); ALBUMIN 3.8 GM/DL (3.2-5.2); ALT/SGPT 156 U/L (12-78); BILIRUBIN,DIRECT < 0.1 MG/DL (0.0-0.2); BILIRUBIN,TOTAL 0.4 MG/DL (0.2-1.0); BLOOD UREA NITROGEN 15 MG/DL (7-18); CALCIUM LEVEL 8.7 MG/DL (8.5-10.1); CARBON DIOXIDE LEVEL 25 MEQ/L (21-32); CHLORIDE LEVEL 108 MEQ/L (98-107); CREATININE FOR GFR 0.87 MG/DL (0.70-1.30); ETHYL ALCOHOL (ETHANOL) < 0.003 % (0.000-0.010); GLOMERULAR FILTRATION RATE > 60.0 (>60); GLUCOSE, FASTING 89 MG/DL (70-100); POTASSIUM SERUM 4.5 MEQ/L (3.5-5.1); SALICYLATE LEVEL < 1.7 MG/DL (5.0-30.0); SODIUM LEVEL 137 MEQ/L (136-145); TOTAL PROTEIN 7.2 GM/DL (6.4-8.2)
[2021-03-22] MEDS ORDERED: IBUP-1022 PO (17:21)
[2021-03-22 17:40] LABS: RSV AMPLIFICATION NEGATIVE (NEGATIVE)
[2021-03-22 17:55] LABS: HEPATITIS B SURFACE ANTIGEN NEGATIVE (NEGATIVE)
[2021-03-22 18:22] LABS: HEPATITIS B CORE ANTIBODY IGM NEGATIVE (NEGATIVE)
[2021-03-22 18:24] LABS: HEPATITIS A ANTIBODY IGM NEGATIVE (NEGATIVE)
[2021-03-22] MEDS ORDERED: MOM 30ML SUSPENSION UDC PO PRN (19:05)
[2021-03-22] MEDS ORDERED: MAALOX 30 ML SUSP *UDC PO PRN (19:05)
[2021-03-22] MEDS ORDERED: traZODone 50 MG TAB PO PRN (19:05)
[2021-03-22 20:10] VITALS: BP 139/81
[2021-03-22] MEDS: IBUPROFEN 600MG TAB PO PRN (20:50)
[2021-03-23 06:28] VITALS: BP 126/72
[2021-03-23] MEDS: IBUPROFEN 600MG TAB PO PRN ×2 (08:28→19:53)
--- NOTE | 2021-03-23 09:01 | MHHPEPDOC ---
General Date Of Admission: Mar 22, 2021 Legal Status: 9.39 Chief Complaint I just wanted to be by myself ". History of Present Illness HISTORY OF THE PRESENT ILLNESS: Patient is a 21 -year-old , male, who [has 1 previous admission on March 07 and discharged on March 08, 2010 after making suicidal threats. Patient has been making numerous emergency room visits with the complaint of back pain and has gone through multiple assessment with no abnormal finding] in the past 3 months. Patient came to emergency room on February 25, 2010 with a complaint of hearing voices and feeling suicidal but after admission he stated that he just lied to gain admission because nobody takes his back pain seriously and was discharged on the same day. This time patient is presenting with same complaint and same situation. He stated that he has an appointment to go up to a physical therapy in 2 weeks but was still having a lot of pain in his back so he left his mother's house yesterday went to a park and then texted his mother that he was going to jump off a bridge to kill himself and the mother called 911 and the police found him on a path to the bridge and brought to emergency room. Now the patient claims that he was not suicidal but he was in pain and he wanted to get away from the house so he lied. He is smiling somewhat inappropriately but denies any hallucination paranoia and denies it any drug or alcohol abuse issues and stating that he is not suicidal and he should be discharged. He is not presenting with any other delusional thinking and denies any prior history of psychosis and denies any history of ongoing depression but remains somewhat somatically preoccupied but does not show any physical distress and does not appear to be in any acute distress. Psychiatric Review of Systems Depression (2 or more weeks): denies, other (Preoccupied with the back pain) Aparna (4 or more days of): denies Psychosis: denies PTSD: denies Anxiety: denies Past Psychiatric History Previous Psychiatric Diagnosis: [Adjustment disorder]. Previous Psychiatric Admissions: . 1 admission in March 07 Suicide Attempts: . No history of attempt Psychiatric Follow-up: . Not in any outpatient counseling Psychiatric medications: . No medication Past Medical History Medical Problems Been complaining of chronic back pain but also almost daily visits to the emergency room with minor somatic complaints. He went through multiple assessment with no abnormal findings. Head Injury: No Seizures: No Hospitalizations: No Surgeries: No Family Medical/Psychiatric HX Medical Problems Noncontributory Psychiatric Disorders: No Addiction: No Suicide Attemps/Completions: No Addiction History denies, other (Tox screen is negative) Social History Childhood: . Unremarkable childhood Abuse/Trauma:. Denies any history of being abused Current Living Situation: Lives with the family. Education: . 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 Family Legal: . Denies any legal issues Marital: . Single Mental Status Examination General Appearance: appears stated age Build: average Demeanor: average Eye Contact: average Activity: average, anxious Behavior: cooperative Speech: clear, normal volume, reg/rate,rhythm,volume Mood: other (Denies any serious depression claims that he was irritated because of his chronic pain) Mood Smiling somewhat inappropriately and nervously Affect: full, anxious Thought Process: logical/linear Thought Content (Delusions): other (Claims he lied about his suicidal thoughts because he wanted to stay away from his home and wanted to be in hospital for his back pain) Thought Content (Other): other (Somatic preoccupation with the numerous repeated emergency room visits) Thought Content (Aggressive): none reported Perception (Hallucinations): none reported Perception (Other): none reported Cognition (Impairment of): none reported Cognition(Intelligence Est.): average Oriented: Awake, Alert, Oriented times three Insight: poor Judgment: Poor Psychosis: Denies Diagnoses Adjustment disorder with mixed emotion rule out somatization disorder rule out personality disorder mixed A-FIB/CHADSVASC A-FIB History Current/History of A-Fib/PAF?: No Current PO Anticoag Therapy: No Age/Risk Factor Scoring CHADSVASC: CHADSVASC Response (Comments) Value Age Risk Factor Age < 65 years old 0 Gender Risk Factor Male 0 Hx of CHF No 0 Hx of HTN No 0 Hx of Stroke/TIA/or VTE No 0 Hx of Diabetes No 0 Hx of Vascular Disease No 0 Total 0 Treatment Treatment ordered: NONE Assessment The behavior in the past 3 months shows almost daily visits to the emergency room with numerous different somatic complaints. Patient does not appear to be acutely psychotic and denies any ongoing depression and does not have any history of self mutilating behavior. While complaining of severe pain he has not been seeking any particular medications and his tox screen has been negative. Somewhat puzzling because I do not see what the secondary gain is from this and suspect some underlying serious pathology. I believe we need to have a further observation and evaluation to clarify the diagnosis and risk of lethality. Initial Treatment Plan 1. Patient was admitted on a 939 status. 2. Complete history was obtained. 3. With patients permission, family will be contacted and database will be expa nded. 4. Patients medication regimen will be reviewed and changed accordingly. 5. Patient will be provided with protected environment. 6. Patient will be treated with individual, group, and milieu therapies. 7. Patient will receive supportive psych-education. 8. Discharge planning will commence immediately. 9. Outpatient follow-up treatment will be strongly recommended. 10. The initial treatment plan will focus initially on: * Depression. * Risk for suicide. ESTIMATED LENGTH OF STAY: 3-5 DAYS. TIME SPENT COUNSELING AND COORDINATING INITIAL CARE: 40 minutes. Tobacco Cessation Screen If Patient is a Smoker Non-smoker N/A-No Antipsychotics Vital Signs Vital Signs Date Time Temp Pulse Resp B/P (MAP) Pulse Ox O2 Delivery O2 Flow Rate FiO2 03/23/21 06:28 96.7 87 20 126/72 (90) 99 Room Air Laboratory Data 24H Labs Laboratory Tests 2 03/22/21 14:48: Nucleated Red Blood Cells % (auto) 0.0, Anion Gap 4L, Glomerular Filtration Rate > 60.0, Calcium Level 8.7, Total Bilirubin 0.4, Direct Bilirubin < 0.1, Aspartate Amino Transf (AST/SGOT) 51H, Alanine Aminotransferase (ALT/SGPT) 156H, Alkaline Phosphatase 190H, Total Protein 7.2, Albumin 3.8, Albumin/Globulin Ratio 1.1, Thyroid Stimulating Hormone (TSH) 1.510, Salicylates Level < 1.7L, Urine Opiates Screen NEGATIVE, Urine Methadone Screen NEGATIVE, Acetaminophen Level < 2.0L, Urine Barbiturates Screen NEGATIVE, Urine Phencyclidine Screen NEGATIVE, Urine Amphetamines Screen NEGATIVE, Urine Benzodiazepines Screen NEGATIVE, Urine Cocaine Metabolite Screen NEGATIVE, Urine Cannabinoids Screen NEGATIVE, Ethyl Alcohol Level < 0.003, Hepatitis A IgM Antibody NEGATIVE, Hepatitis B Surface Antigen NEGATIVE, Hepatitis B Core IgM Antibody NEGATIVE, Hepatitis C Antibody Index 0.0 03/22/21 16:52: Coronavirus (COVID-19)(PCR) NEGATIVE, Influenza Type A (RT-PCR) NEGATIVE, Influenza Type B (RT-PCR) NEGATIVE, Respiratory Syncytial Virus (PCR) NEGATIVE CBC/BMP Laboratory Tests 03/22/21 14:48 Medications Scheduled PRN Ibuprofen (Ibuprofen) 600 Mg Tablet, 600 MG PO TID PRN for PAIN LEVEL 4-7, (Reported) Allergies Coded Allergies: bee venom protein (honey bee) (Verified Allergy, Unknown, throat swelling, 02/21/21) FLORIAN KAN M.D. Mar 23, 2021 09:01
--- NOTE | 2021-03-23 11:52 | HPEPDOC ---
[facility] Medical History & Physical Date of Admission Mar 22, 2021 Date of Service: Mar 23, 2021 History and Physical Chief complaint: Who presented to the hospital after reporting suicidal ideation History of present illness: Patient is a 21-year-old male with no significant past medical history who was presented to the emergency room brought in by police for suicidal i deation. Patient was admitted to inpatient mental health unit under the care of psychiatry. Hospitalist services consulted for medical screening evaluation. Patient was seen and examined in the exam room with a female co founder & ceo. Patient denied any headache, nausea, vomiting, chest pain, shortness breath, palpitations, cough, abdominal pain, diarrhea, or urinary discomfort. He denies any recent fevers or chills. Reports that his appetite is very good and has not experience any significant fluctuations in his weight. Past Medical History: No significant past medical history Past Surgical History: Denies any prior surgical history Allergies: See below Medications: See below Family History: - Mother: - Father: - No history of malignancies Social History: - Denies the use of alcohol, tobacco or illicit drugs - Denies recent travel or sick contacts - Lives with parents - Occupation; patient reports that he works for [employer] at the [employer]. Review of Systems: 10 point review of systems complete, all negative otherwise stated in HPI Physical exam: - Vitals: BP [126/72], HR [87], RR [20], Sat [99%RA], Temp [96.7F] - General: Lying in bed, No acute distress, Speaking in full sentences, AAOx3 - HEENT: NC, AT, PERRLA - CVS: RRR, +S1S2, - Murmurs / rubs / gallops - Lungs: Fair air entry bilaterally, No appreciable wheezing / rales / rhonchi - Abdomen: Soft, Non-distended, Non-tender - Extremities: No lower extremity edema, No calf tenderness - Neuro: No focal motor or sensory deficit - Skin: No visible rashes Labs: See below Imaging: See below EKG: See below Assessment and Plan: Suicidal ideation - Patient has been admitted to the inpatient mental health unit under the care of psychiatry - Currently being managed by psychiatry Leukocytosis - Review of systems is negative for any source of infection - Hemodynamically stable and afebrile - Will not start antibiotics at this time No significant past medical history DVT prophylaxis - Will continue with early ambulation Female co founder & ceo was present at the duration of this history and physical examination Thank you for this consultation; hospital service will now sign off, please reconsult as needed Vital Signs Vital Signs Date Time Temp Pulse Resp B/P (MAP) Pulse Ox O2 Delivery O2 Flow Rate FiO2 03/23/21 06:28 96.7 87 20 126/72 (90) 99 Room Air Laboratory Data Labs 24H Laboratory Tests 2 03/22/21 14:48: Nucleated Red Blood Cells % (auto) 0.0, Anion Gap 4L, Glomerular Filtration Rate > 60.0, Calcium Level 8.7, Total Bilirubin 0.4, Direct Bilirubin < 0.1, Aspartate Amino Transf (AST/SGOT) 51H, Alanine Aminotransferase (ALT/SGPT) 156H, Alkaline Phosphatase 190H, Total Protein 7.2, Albumin 3.8, Albumin/Globulin Ratio 1.1, Thyroid Stimulating Hormone (TSH) 1.510, Salicylates Level < 1.7L, Urine Opiates Screen NEGATIVE, Urine Methadone Screen NEGATIVE, Acetaminophen Level < 2.0L, Urine Barbiturates Screen NEGATIVE, Urine Phencyclidine Screen NEGATIVE, Urine Amphetamines Screen NEGATIVE, Urine Benzodiazepines Screen NEGATIVE, Urine Cocaine Metabolite Screen NEGATIVE, Urine Cannabinoids Screen NEGATIVE, Ethyl Alcohol Level < 0.003, Hepatitis A IgM Antibody NEGATIVE, Hepatitis B Surface Antigen NEGATIVE, Hepatitis B Core IgM Antibody NEGATIVE, Hepatitis C Antibody Index 0.0 03/22/21 16:52: Coronavirus (COVID-19)(PCR) NEGATIVE, Influenza Type A (RT-PCR) NEGATIVE, Influenza Type B (RT-PCR) NEGATIVE, Respiratory Syncytial Virus (PCR) NEGATIVE CBC/BMP Laboratory Tests 03/22/21 14:48 Home Medications Scheduled PRN Ibuprofen (Ibuprofen) 600 Mg Tablet, 600 MG PO TID PRN for PAIN LEVEL 4-7 Allergies Coded Allergies: bee venom protein (honey bee) (Verified Allergy, Unknown, throat swelling, 02/21/21) TATI NDIAYE MD Mar 23, 2021 11:52
[2021-03-23 17:56] VITALS: BP 138/89
[2021-03-24 06:01] VITALS: BP 145/77
[2021-03-24] MEDS: IBUPROFEN 600MG TAB PO PRN (08:07)
--- NOTE | 2021-03-24 10:26 | MHDSPDOC ---
[facility] Discharge Summary Discharge Summary DATE OF ADMISSION: Mar 22, 2021 at 19:03 DATE OF DISCHARGE: March 24, 2021 DISCHARGE DIAGNOSES: 1.. Adjustment disorder with mixed emotion 2.. Rule out somatization disorder REASON FOR ADMISSION: Patient was brought to emergency room after he sent text to his mother claiming that he was going to jump off a bridge. On the unit patient denies any suicidal plan or intent and stated that he just wanted to get away from everything because of his continued issues with his back pain CONSULTANTS INVOLVED: TREATMENT AND PROGRESS ON THE UNIT : On the unit patient is denying any serious depression or suicidal thoughts. He has been making repeated visits to the emergency room with various somatic complaints but he was in no acute physical distress and did not show any med seeking behavior and denies any history of substance abuse.. HOSPITAL COURSE: He is maintaining very good control and denies any lethality issues and does not want any psychotropic medications DISCHARGE ASSESSMENT: Not psychotic not suicidal MENTAL STATUS EXAMINATION ON DISCHARGE: Patient is a 21-year old male, who is in good control. Speech is rational. Language skills are fair. Thought processes including: Relevant. Thought content: Denies any suicidal intent. Abstract reasoning, and computation: Fair. Description of associations: Organized. Description of abnormal or psychotic thoughts: No gross psychotic symptoms. Judgment: Poor. Insight: Poor. Orientation to oriented. Recent and remote memory: No impairment. Attention span and concentration:. Language:. Fund of knowledge:. Mood: Denies any serious depression. Affect: Animated appropriate. MEDICATIONS ON DISCHARGE: -For. No psychotropic medication -For. -For. PLAN/FOLLOWUP ARRANGEMENTS: Arranged by systems requirements planner. The amount of time spent in the coordination of care for this patient was approximately 30 minutes. ETOH/Disorder Med Rx ETOH/DRUG DISORDER RX: N/A Vital Signs/I&Os Vital Signs Date Time Temp Pulse Resp B/P (MAP) Pulse Ox O2 Delivery O2 Flow Rate FiO2 03/24/21 06:01 98.3 81 18 145/77 (99) 99 Room Air Medications Scheduled PRN Ibuprofen (Ibuprofen) 600 Mg Tablet, 600 MG PO TID PRN for PAIN LEVEL 4-7, (Reported) Allergies Coded Allergies: bee venom protein (honey bee) (Verified Allergy, Unknown, throat swelling, 02/21/21) FLORIAN KAN M.D. Mar 24, 2021 10:26
== END 2021-03-24 13:37 | disposition home or self-care (01) | DRG 755 ==
LOC: M ED 13:48 → M ED INP 19:03 → UNDOADMIN 19:03 → M PSY 20:00
PROVIDERS: ADMIT Psychiatry & Neurology Psychiatry; ATTEND Psychiatry & Neurology Psychiatry
DX: F43.25 Adjustment disorder with mixed disturbance of emotions and conduct (principal); F45.9 Somatoform disorder, unspecified; F60.89 Other specific personality disorders; M54.9 Dorsalgia, unspecified; Z20.822 Contact with and (suspected) exposure to COVID-19; Z91.030 Bee allergy status

== ENCOUNTER 2021-04-02 15:15 | Emergency (ER) | payer MEDICAID, OTHER ==
[~2021-04-02] VITALS: Ht 167.6 cm; Wt 103.8 kg
[2021-04-02 15:17] VITALS: BP 126/72
[2021-04-02 16:43] LABS: BASO # 0.1 10^3/uL (0.0-0.2); BASO % 0.8 % (0.0-1.0); EOS # 0.1 10^3/uL (0.0-0.5); EOS % 0.6 % (0.0-3.0); HEMATOCRIT 46.5 % (42.0-52.0); HEMOGLOBIN 16.3 g/dl (13.5-17.5); LYMPH # 2.9 10^3/uL (1.5-5.0); LYMPH % 30.9 % (24.0-44.0); MEAN CORPUSCULAR HEMOGLOBIN 30.4 pg (27.0-33.0); MEAN CORPUSCULAR HGB CONC 35.1 g/dl (32.0-36.5); MEAN CORPUSCULAR VOLUME 86.6 fl (80.0-96.0); MONO % 10.7 % (2.0-8.0); NEUTROPHILS # 5.2 10^3/uL (1.5-8.5); NEUTROPHILS % 56.5 % (36.0-66.0); PLATELET COUNT, AUTOMATED 287 10^3/uL (150-450); RED BLOOD COUNT 5.37 10^6/uL (4.30-6.10); WHITE BLOOD COUNT 9.3 10^3/uL (4.0-10.0)
[2021-04-02 17:16] LABS: ALT/SGPT 192 U/L (12-78); BILIRUBIN,DIRECT 0.1 MG/DL (0.0-0.2); BILIRUBIN,TOTAL 0.2 MG/DL (0.2-1.0); BLOOD UREA NITROGEN 8 MG/DL (7-18); CALCIUM LEVEL 8.9 MG/DL (8.5-10.1); CARBON DIOXIDE LEVEL 24 MEQ/L (21-32); CHLORIDE LEVEL 109 MEQ/L (98-107); CREATININE FOR GFR 0.81 MG/DL (0.70-1.30); GLOMERULAR FILTRATION RATE > 60.0 (>60); GLUCOSE, FASTING 90 MG/DL (70-100); LIPASE 78 U/L (73-393); POTASSIUM SERUM 4.1 MEQ/L (3.5-5.1); SODIUM LEVEL 141 MEQ/L (136-145); TOTAL PROTEIN 7.5 GM/DL (6.4-8.2)
[2021-04-02] MEDS ORDERED: SIME180C25 PO (18:54)
== END 2021-04-02 18:59 | disposition home or self-care (01) ==
LOC: M ED 15:15
DX: R74.01 Elevation of levels of liver transaminase levels (principal); R14.1 Gas pain; Z91.030 Bee allergy status

== ENCOUNTER 2021-04-24 09:53 | Emergency (ER) | payer MEDICAID, OTHER ==
[~2021-04-24] VITALS: Ht 167.6 cm; Wt 105.4 kg
[~2021-04-24 09:53] MED LIST changes: +SIME180C25 PO; +TIZA10TA PO; -TIZA4TAB4 PO
[2021-04-24] MEDS ORDERED: KETOROLAC 30 MG/ML 1ML VIAL IV ONE (10:50)
[2021-04-24] MEDS ORDERED: NS 1,000 ML IV ONE (10:50)
[2021-04-24] MEDS ORDERED: ONDANSETRON 4MG/2ML VIAL IV ONE (10:50)
[2021-04-24 11:32] LABS: BASO # 0.1 10^3/uL (0.0-0.2); BASO % 0.5 % (0.0-1.0); EOS % 0.4 % (0.0-3.0); HEMATOCRIT 47.5 % (42.0-52.0); HEMOGLOBIN 16.7 g/dl (13.5-17.5); LYMPH # 2.2 10^3/uL (1.5-5.0); LYMPH % 20.7 % (24.0-44.0); MEAN CORPUSCULAR HGB CONC 35.2 g/dl (32.0-36.5); MEAN CORPUSCULAR VOLUME 85.4 fl (80.0-96.0); MONO % 9.6 % (2.0-8.0); NEUTROPHILS # 7.2 10^3/uL (1.5-8.5); NEUTROPHILS % 68.4 % (36.0-66.0); PLATELET COUNT, AUTOMATED 324 10^3/uL (150-450); RED BLOOD COUNT 5.56 10^6/uL (4.30-6.10); WHITE BLOOD COUNT 10.6 10^3/uL (4.0-10.0)
[2021-04-24 12:48] LABS: ALBUMIN 4.1 GM/DL (3.2-5.2); ALT/SGPT 82 U/L (12-78); BILIRUBIN,DIRECT < 0.1 MG/DL (0.0-0.2); BILIRUBIN,TOTAL 0.7 MG/DL (0.2-1.0); LIPASE 56 U/L (73-393); TOTAL PROTEIN 7.9 GM/DL (6.4-8.2)
[2021-04-24] MEDS ORDERED: DICY10CA13 PO (13:04)
[2021-04-24 13:05] VITALS: BP 134/68
== END 2021-04-24 13:09 | disposition home or self-care (01) ==
LOC: M ED 09:53
DX: A04.0 Enteropathogenic Escherichia coli infection (principal); Z91.030 Bee allergy status
CPT/HCPCS: 74021; 80047; 80076; 83690; 85025; 87505; 96361; 96374; 96375; 99284; J1885; J2405

== ENCOUNTER 2021-05-02 11:17 | Emergency (ER) | payer OTHER ==
[~2021-05-02 11:17] MED LIST changes: +DICY10CA13 PO; -TIZA10TA PO; +TIZA4TAB4 PO
[2021-05-02] MEDS ORDERED: BENA25CA4 PO (13:16)
[2021-05-02 13:45] VITALS: BP 138/68
== END 2021-05-02 13:47 | disposition home or self-care (01) ==
LOC: EDBD 11:17 → M ED 11:17
DX: R22.41 Localized swelling, mass and lump, right lower limb (principal); W57.XXXA Bitten or stung by nonvenomous insect and other nonvenomous arthropods, initial encounter; Y92.89 Other specified places as the place of occurrence of the external cause; Z91.030 Bee allergy status

== ENCOUNTER 2021-06-02 09:30 | Emergency (ER) | payer OTHER ==
[~2021-06-02] VITALS: Ht 167.6 cm; Wt 109.3 kg
[2021-06-02 12:31] VITALS: BP 138/82
== END 2021-06-02 12:33 | disposition home or self-care (01) ==
LOC: M ED 09:30
DX: R10.9 Unspecified abdominal pain (principal); R11.10 Vomiting, unspecified; R19.7 Diarrhea, unspecified; Z91.030 Bee allergy status

== ENCOUNTER 2021-06-27 13:08 | Emergency (ER) | payer OTHER ==
[~2021-06-27] VITALS: Ht 170.2 cm; Wt 110.0 kg
--- OUTSIDE RECORDS SUMMARY | 2021-06-27 13:16 | CCD | Continuity of Care Document ---
Author Author [facility] Organization Unknown Address [address] [place] [id number] Phone [phone] Care Team Providers Care Amphibian Crewmember Name Role Phone Kyle Lara MD AUTM Unavailable Genny Pearson AUTM [phone] Problems Description No Information Available Social History Type Date Description Comments Sex Unknown Allergies, Adverse Reactions, Alerts Description No Information Available Medications Description No Information Available Immunizations Description No Information Available Vital Signs Date Vital Result Comment 05/26/2021 11:24am Body Temperature 97.3 F Height 66 inches 5'6" Weight 235.00 lb BMI (Body Mass Index) 37.9 kg/m2 Results Description No Information Available Procedures Description No Information Available Medical Devices Description No Information Available Encounters Description No Information Available Assessments Date Code Description Provider 05/26/2021 M54.59 Other low back pain Al Jung Plan of Treatment 05/26/2021 - Al Mckinney* M54.59 Other low back pain* Follow up: * 6-8 week low back recheck w/[facility] Functional Status Description No Information Available Mental Status Description No Information Available Referrals Refer to Reason for Referral Status Appt Date [place] MD M54.5 LOW BACK PAIN Created 00 1571 [facility], [facility] [address] [place] [address] [phone]
--- OUTSIDE RECORDS SUMMARY | 2021-06-27 13:16 | CCD ---
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 955354957 Problem Irritable bowel syndrome with both constipation and diarrh ea K58.2 Active confirmed 90363604 Problem Body mass index (BMI) of 40.1 to 44.9 in adult Z68 .41 Active confirmed 989343046 Problem Emotional crisis F43.20 Active confirmed 309 613121 Problem Gastritis without bleeding, unspecified chronicity, unspecified gastritis type K29.70 Active confirmed 7208923 Problem 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 Active confirmed 3866 63410 Problem Anxiety about health F41.8 Active confirmed 870832405 ALLERGIES Allergen (clinical drug ingredient) Drug/Non Drug Allergy do cumented on EMR Reaction Allergy Type Onset Date Status Bee Pollen([facility] Code:[address]-67) Anaphylaxis Drug Allerg y Active ENCOUNTERS from 1999 to 2021-04-18 Encounter Location Date Provider Diagnosis [address] [phone] [place] [address] Mar, Genny Pearson IMMUNIZATIONS Vaccine Route Administration Date Status Influenza 6mo & up Fluzone IM Intramuscular Jul 15, 2018 Admi nistered SOCIAL HISTORY Tobacco Use: Social History Observation Description Date Details (start date - stop date) Never Smoker Sex Assigned At : Social History Observation Description Sex Assigned At Unknown Education: Question Answer Notes Level of Education: Finished High School class of 2017 Audit Question Answer Notes Total Score: 0 Interpretation: Alcohol Education Language: Question Answer Notes Languages spoken: Y[place]ut Uatsdin: Question Answer Notes Uatsdin 33 None Sexual Hx: Question Answer Notes Had sex in the last 12 months (vaginal, oral, or anal)? No Have you ever had an STD? No Drug and Alcohol Question Answer Notes Total Score: 0 Interpretation: No problems reported Alcohol Screening: Question Answer Notes Did you have a drink containing alcohol in the past year? No Points 0 Interpretation Negative Tobacco Use: Question Answer Notes Are you a: never smoker never smoker REASON FOR REFERRAL No Information VITAL SIGNS No information MEDICATIONS Medication SIG (Take, Route, Frequency, Duration) Notes Start Da te End Date Status Meloxicam 15 MG 1 tablet Orally Once a day for 30 day(s) Active Fiber 625 MG 1 tab Orally bid for 30 days Feb, Active Omeprazole 40 MG 1 capsule 30 minutes before morning meal Orally Once a day for 30 days Active PROCEDURES No Information RESULTS No Results REASON FOR VISIT n/s MEDICAL (GENERAL) HISTORY Type Description Date Surgical History No Surgical history information Hospitalization History febrile seizures as an ([facility]) Goals Section No Information Health Concerns No Information MEDICAL EQUIPMENT No Information MENTAL STATUS No Information FUNCTIONAL STATUS No Information ASSESSMENTS No Information PLAN OF TREATMENT Next Appt Details Provider Name:Genny Fe Pearson, 11:00:00 AM, [address] [place], [place] [id number], [phone] Provider Name:Gennysushil Pearson, 03:00:00 PM, [address] [place] [phone] Insurance Providers Payer Name Payer Address Payer Phone Insured Name Patient Relati onship to Insured Coverage Start Date Coverage End Date FORMERLY [facility] [address] [facility] [id number] [place] self
--- OUTSIDE RECORDS SUMMARY | 2021-06-27 13:16 | CCD ---
Author Author [facility] Organization [facility] Address Unknown Phone Unavailable Care Team Providers Care Corporate Officer Name Role Phone Maring, Mandie PA Unavailable Unavailable Maring, Mandie PA Unavailable Unavailable Maring, Mandie PA Unavailable Unavailable Maring, Mandie PA Unavailable Unavailable Maring, Mandie PA Unavailable Unavailable Maring, Mandie PA Unavailable Unavailable Maring, Mandie PA Unavailable Unavailable Maring, Mandie PA Unavailable Unavailable Maring, Mandie PA Unavailable Unavailable Maring, Mandie PA Unavailable Unavailable Maring, Mandie PA Unavailable Unavailable Maring, Mandie PA Unavailable Unavailable Maring, Mandie PA Unavailable Unavailable Maring, Mandie PA Unavailable Unavailable Maring, Mandie PA Unavailable Unavailable Maring, Mandie PA Unavailable Unavailable Servage, L Genny FRAME RUNNER Unavailable Unavailable Servage, L Genny FRAME RUNNER Unavailable Unavailable Servage, L Genny FRAME RUNNER Unavailable Unavailable Servage, L Genny FRAME RUNNER Unavailable Unavailable Servage, L Genny FRAME RUNNER Unavailable Unavailable Servage, L Genny FRAME RUNNER Unavailable Unavailable Servage, L Genny FRAME RUNNER Unavailable Unavailable Servage, L Genny FRAME RUNNER Unavailable Unavailable Servage, L Genny FRAME RUNNER Unavailable Unavailable Servage, L Genny FRAME RUNNER Unavailable Unavailable Servage, L Genny FRAME RUNNER Unavailable Unavailable Servage, L Genny FRAME RUNNER Unavailable Unavailable Servage, L Genny FRAME RUNNER Unavailable Unavailable Servage, L Genny FRAME RUNNER Unavailable Unavailable Servage, L Genny FRAME RUNNER Unavailable Unavailable Servage, L Genny FRAME RUNNER Unavailable Unavailable Servage, L Genny FRAME RUNNER Unavailable Unavailable Servage, L Genny FRAME RUNNER Unavailable Unavailable Servage, L Genny FRAME RUNNER Unavailable Unavailable Servage, L Genny FRAME RUNNER Unavailable Unavailable Servage, L Genny FRAME RUNNER Unavailable Unavailable Servage, L Genny FRAME RUNNER Unavailable Unavailable Servage, L Genny FRAME RUNNER Unavailable Unavailable Servage, L Genny FRAME RUNNER Unavailable Unavailable Servage, L Genny FRAME RUNNER Unavailable Unavailable Servage, L Genny FRAME RUNNER Unavailable Unavailable Servage, L Genny FRAME RUNNER Unavailable Unavailable Servage, L Genny FRAME RUNNER Unavailable Unavailable Servage, L Genny FRAME RUNNER Unavailable Unavailable Servage, L Genny FRAME RUNNER Unavailable Unavailable Servage, L Genny FRAME RUNNER Unavailable Unavailable Servage, L Genny FRAME RUNNER Unavailable Unavailable Servage, L Genny FRAME RUNNER Unavailable Unavailable Servage, L Genny FRAME RUNNER Unavailable Unavailable Servage, L Egnny FRAME RUNNER Unavailable Unavailable Servage, L Genny FRAME RUNNER Unavailable Unavailable Servage, L Gneny FRAME RUNNER Unavailable Unavailable Servage, L Genny FRAME RUNNER Unavailable Unavailable Servage, L Genny FRAME RUNNER Unavailable Unavailable Servage, L Genny FRAME RUNNER Unavailable Unavailable Servage, L Genny FRAME RUNNER Unavailable Unavailable Servage, L Genny FRAME RUNNER Unavailable Unavailable Servage, L Genny FRAME RUNNER Unavailable Unavailable Servage, L Genny FRAME RUNNER Unavailable Unavailable Servage, L Genny FRAME RUNNER Unavailable Unavailable Servage, L Genny FRAME RUNNER Unavailable Unavailable Servage, L Genny FRAME RUNNER Unavailable Unavailable Servage, L Genny FRAME RUNNER Unavailable Unavailable Servage, L Genny FRAME RUNNER Unavailable Unavailable Servage, L Genny FRAME RUNNER Unavailable Unavailable Servage, L Genny FRAME RUNNER Unavailable Unavailable Servage, L Genny FRAME RUNNER Unavailable Unavailable Servage, L Genny FRAME RUNNER Unavailable Unavailable Servage, L Genny FRAME RUNNER Unavailable Unavailable Servage, L Genny FRAME RUNNER Unavailable Unavailable Servage, L Genny FRAME RUNNER Unavailable Unavailable Servage, L Genny FRAME RUNNER Unavailable Unavailable Servage, L Genny FRAME RUNNER Unavailable Unavailable Servage, L Genny FRAME RUNNER Unavailable Unavailable Servage, L Genny FRAME RUNNER Unavailable Unavailable Servage, L Genny FRAME RUNNER Unavailable Unavailable Servage, L Genny FRAME RUNNER Unavailable Unavailable Servage, L Genny FRAME RUNNER Unavailable Unavailable Servage, L Genny FRAME RUNNER Unavailable Unavailable Servage, L Genny FRAME RUNNER Unavailable Unavailable Stephanie Guan SHEETFED PRESS OPERATOR SHEETFED PRESS OPERATOR Unavailable Unavailable MCELHERAN, MIKALA PA Unavailable Unavailable MCELHERAN, MIKALA PA Unavailable Unavailable MCELHERAN, MIKALA PA Unavailable Unavailable MCELHERAN, MIKALA PA Unavailable Unavailable MCELHERAN, MIKALA PA Unavailable Unavailable MCELHERAN, MIKALA PA Unavailable Unavailable MCELHERAN, MIKALA PA Unavailable Unavailable MCELHERAN, MIKALA PA Unavailable Unavailable MCELHERAN, MIKALA PA Unavailable Unavailable MCELHERAN, MIKALA PA Unavailable Unavailable MCELHERAN, MIKALA PA Unavailable Unavailable MCELHERAN, MIKALA PA Unavailable Unavailable MCELHERAN, MIKALA PA Unavailable Unavailable MCELHERAN, MIKALA PA Unavailable Unavailable MCELHERAN, MIKALA PA Unavailable Unavailable MCELHERAN, MIKALA PA Unavailable Unavailable MCELHERAN, MIKALA PA Unavailable Unavailable MCELHERAN, MIKALA PA Unavailable Unavailable MCELHERAN, MIKALA PA Unavailable Unavailable MCELHERAN, MIKALA PA Unavailable Unavailable MCELHERAN, MIKALA PA Unavailable Unavailable MCELHERAN, MIKALA PA Unavailable Unavailable MCELHERAN, MIKALA PA Unavailable Unavailable MCELHERAN, MIKALA PA Unavailable Unavailable MCELHERAN, MIKALA PA Unavailable Unavailable MCELHERAN, MIKALA PA Unavailable Unavailable MCELHERAN, MIKALA PA Unavailable Unavailable MCELHERAN, MIKALA PA Unavailable Unavailable MCELHERAN, MIKALA PA Unavailable Unavailable Vito Thorne MD Unavailable Unavailable Vito Thorne MD Unavailable Unavailable Vito Thorne MD Unavailable Unavailable Vito Thorne MD Unavailable Unavailable Vito Thorne MD Unavailable Unavailable Vito Thorne MD Unavailable Unavailable LARNettie CABALLERO FRAME RUNNER Unavailable Unavailable LARADA, Nettie CINTRON FRAME RUNNER Unavailable Unavailable LAROCK, Nettie CINTRON FRAME RUNNER Unavailable Unavailable LAROCK, Nettie CINTRON FRAME RUNNER Unavailable Unavailable LAROCK, Nettie CINTRON FRAME RUNNER Unavailable Unavailable LAROCK, Nettie CINTRON FRAME RUNNER Unavailable Unavailable LAROCK, Nettie CINTRON FRAME RUNNER Unavailable Unavailable LAROCK, Nettie CINTRON FRAME RUNNER Unavailable Unavailable LAROCK, Nettie CINTRON FRAME RUNNER Unavailable Unavailable LAROCK, Nettie CINTRON FRAME RUNNER Unavailable Unavailable LAROCK, Nettie CINTRON FRAME RUNNER Unavailable Unavailable LAROCK, Nettie CINTRON FRAME RUNNER Unavailable Unavailable LAROCK, Nettie CINTRON FRAME RUNNER Unavailable Unavailable LAROCK, Nettie CINTRON FRAME RUNNER Unavailable Unavailable LAROCK, Nettie CINTRON FRAME RUNNER Unavailable Unavailable LAROCK, Nettie CINTRON FRAME RUNNER Unavailable Unavailable LAROCK, Nettie CINTRON FRAME RUNNER Unavailable Unavailable LAROCK, Nettie CINTRON FRAME RUNNER Unavailable Unavailable LAROCK, Nettie CINTRON FRAME RUNNER Unavailable Unavailable LAROCK, Nettie CINTRON FRAME RUNNER Unavailable Unavailable LAROCK, Nettie CINTRON FRAME RUNNER Unavailable Unavailable LAROCK, Nettie CINTRON FRAME RUNNER Unavailable Unavailable RING, K REMI PA Unavailable Unavailable RING, K REMI PA Unavailable Unavailable RING, K REMI PA Unavailable Unavailable RING, K REMI PA Unavailable Unavailable RING, K REMI PA Unavailable Unavailable RING, K REMI PA Unavailable Unavailable RING, K REMI PA Unavailable Unavailable RING, K REMI PA Unavailable Unavailable RING, K REMI PA Unavailable Unavailable RING, K REMI PA Unavailable Unavailable RING, K REMI PA Unavailable Unavailable RING, K REMI PA Unavailable Unavailable RING, K REMI PA Unavailable Unavailable RING, K REMI PA Unavailable Unavailable RING, K REMI PA Unavailable Unavailable RING, K REMI PA Unavailable Unavailable RING, K REMI PA Unavailable Unavailable RING, K REMI PA Unavailable Unavailable RING, K REMI PA Unavailable Unavailable RING, K REMI PA Unavailable Unavailable RING, K REMI PA Unavailable Unavailable Re-disclosure Warning The records that you are about to access may contain information from federally-assisted alcohol or drug abuse programs. If such information is present, then the following federally mandated warning applies: This information has been disclosed to you from records protected by federal confidentiality rules (42 CFR part 2). The federal rules prohibit you from making any further disclosure of this information unless further disclosure is expressly permitted by the written consent of the person to whom it pertains or as otherwise permitted by 42 CFR part 2. A general authorization for the release of medical or other information is NOT sufficient for this purpose. The Federal rules restrict any use of the information to criminally investigate or prosecute any alcohol or drug abuse patient.The records that you are about to access may contain highly sensitive health information, the redisclosure of which is protected by Article 27-F of the [place] State Public Health law. If you continue you may have access to information: Regarding HIV / AIDS; Provided by facilities licensed or operated by the [facility] Office of Mental Health; or Provided by the [facility] Office for People With Developmental Disabilities. If such information is present, then the following [facility] mandated warning applies: This information has been disclosed to you from confidential records which are protected by state law. State law prohibits you from making any further disclosure of this information without the specific written consent of the person to whom it pertains, or as otherwise permitted by law. Any unauthorized further disclosure in violation of state law may result in a fine or care home sentence or both. A general authorization for the release of medical or other information is NOT sufficient authorization for further disc losure. Encounters Encounter Providers Location Date Indications Data Source(s ) Outpatient Attender: MIKALA TAVAREZ Physical Therapy 05/26/2021 11:00:00 AM EDT MEDENT ([facility]) Unknown [address] [facility] [address] 04/20/2021 12:00:00 AM EDT [facility] Unknown [address] [facility] [place] [address] 04/17/2021 12:00:00 AM EDT eCW1 ([facility]) Unknown [address] [facility] [place] [address] 03/29/2021 12:00:00 AM EDT eCW1 ([facility]) Unknown [address] [facility] [place] [address] 03/07/2021 12:00:00 AM EDT eCW1 ([facility]) Outpatient [address] [facility] [place] [address] 03/06/2021 12:00:00 AM EDT eCW1 ([facility]) Outpatient [address] [facility] [place] [address] 03/02/2021 12:00:00 AM EDT eCW1 ([facility]) Unknown [address] [facility] [place] [address] 03/02/2021 12:00:00 AM EDT eCW1 ([facility]) Emergency Attender: Vito Thorne MDConsultant: Genny Parmar 2021 06:41:00 AM EDT - 2021 07:42:00 AM EDT [facility] Patient discharged. [place] [address] [facility] [place] [address] 2021 12:00:00 AM EDT eCW1 ([facility]) Outpatient [address] [facility] [place] [address] 02/28/2021 12:00:00 AM EDT eCW1 ([facility]) [place] [address] [facility] [place] [address] 02/24/2021 12:00:00 AM EDT eCW1 ([facility]) [place] [address] [facility] [place] [address] 02/23/2021 12:00:00 AM EDT eCW1 ([facility]) [place] [address] [facility] [place] [address] 02/22/2021 12:00:00 AM EDT eCW1 ([facility]) [place] [address] [facility] [place] [address] 02/21/2021 12:00:00 AM EDT eCW1 ([facility]) [place] [address] [facility] [place] [address] 02/21/2021 12:00:00 AM EDT eCW1 ([facility]) Outpatient Attender: REMI Patterson Primary 02/19/2021 04:55:00 PM EDT [facility] ([facility]) Outpatient [address] [facility] [place] [address] 02/15/2021 12:00:00 AM EDT eCW1 ([facility]) Unknown [address] [facility] [address] [place] [address] 01/26/2021 12:00:00 AM EDT eCW1 ([facility]) Outpatient Attender: Mandie TAVAREZ 01/24/20 03:23:07 PM EDT - 01/23/2021 04:07:31 PM EDT [facility] ([facility] ) Outpatient Attender: ABDULAZIZ JIMENEZ NP 12/25 12:05:53 PM EDT - 01/12/2021 12:58:07 PM EDT [facility] ([facility] ) Outpatient Attender: LEXI Guan SHEETFED PRESS OPERATOR FP 05/12/2020 12:02:03 A M EDT [facility] Outpatient Attender: SHEETFED PRESS OPERATOR [facility] 10:11:01 A M EDT [facility] Medications Medication Brand Name Start Date Product Form Dose Route Admi nistrative Instructions Pharmacy Instructions Status Indications Reaction Description Data Source(s) 25 mg 05/02/2021 12:00:00 AM EDT capsule 30 TAKE ONE CAPSULE BY MOUTH EVERY 6 HOURS NEEDED FOR SWELLING/ITCHING TAKE ONE CAPSULE BY MOUTH EVERY 6 HOURS NEEDED FOR SWELLING/ITCHING SOLD: 05/09/2021 [facility] 10 mg 04/24/2021 12:00:00 AM EDT capsule 15 TAKE ONE CAPSULE BY MOUTH EVERY 6 HOURS NEEDED FOR IRRITABLE BOWEL SYMPTOMS TAKE ONE CAPSULE BY MOUTH EVERY 6 HOURS NEEDED FOR IRRITABLE BOWEL SYMPTOMS SOLD: 05/09/2021 [facility] 40 mg 03/20/2021 12:00:00 AM EDT capsule,delayed release (DR/EC) 30 TAKE ONE CAPSULE BY MOUTH 30 MINUTES BEFORE MORNING MEAL DAILY TAKE ONE CAPSULE BY MOUTH 30 MINUTES BEFORE MORNING MEAL DAILY SOLD: 04/06/2021 [facility] Promethazine Hydrochloride 25 MG Oral Tablet PROMETHAZINE HC L 03/19/2021 12:00:00 AM EDT tablet 16 TAKE ONE TABLET BY MOUTH EVERY 6 HOURS NEEDED FOR NAUSEA OR VOMITING TAKE ONE TABLET BY MOUTH EVERY 6 HOURS A S NEEDED FOR NAUSEA OR VOMITING SOLD: 04/06/2021 [facility] Ondansetron 4 MG Disintegrating Oral Tablet ONDANSETRON 03/17/2021 12:00:00 AM EDT tablet,disintegrating 16 DISSOLVE 1 TABLET ON TONGUE EVERY 6-8 HOURS NEEDED FOR NAUSEA AND VOMITING DISSOLVE 1 TABLET ON TONGUE EVERY 6-8 HO URS NEEDED FOR NAUSEA AND VOMITING SOLD: 04/06/2021 [facility] Cyclobenzaprine hydrochloride 5 MG Oral Tablet CYCLOBENZAPRI NE HCL 03/13/2021 12:00:00 AM EDT tablet 15 TAKE 1 TABLET [5 MG] BY MOUTH THREE TIMES A DAY NEEDED FOR MUSCLE SPASMS TAKE 1 TABLET [5MG] BY MOUTH THREE TIMES A DAY NEEDED FOR MUSCLE SPASMS SOLD: 03/13/2021 [facility] 600 mg 03/13/2021 12:00:00 AM EDT tablet 30 TAKE 1 TABLET [600MG] BY MOUTH THREE TIMES A DAY NEEDED FOR PAIN TAKE 1 TABLET [600MG] BY MOUTH THREE MANDIE ES A DAY NEEDED FOR PAIN SOLD: 03/13/2021 [facility] Alprazolam 0.25 MG Oral Tablet ALPRAZOLAM 03/07/2021 12:00:00 AM EDT tablet 10 TAKE 1 TABLET BY MOUTH TWICE A DAY SPARI NGLY NEEDED FOR SEVERE ANXIETY MAX DAILY DOSE = 2 TABLETS TAKE 1 TABLET BY MOUTH TWICE A DAY SPARI NGLY NEEDED FOR SEVERE ANXIETY MAX DAILY DOSE = 2 TABLETS SOLD: 03/08/2021 [facility] 15 mg 03/02/2021 12:00:00 AM EDT tablet 30 TAKE 1 TABLET BY MOUTH ONCE A DAY TAKE 1 TABLET BY MOUTH ONCE A DAY SOLD: 03/03/2021 [facility] meloxicam 15 MG Oral Tablet Meloxicam 15 MG Meloxicam 15 MG 03/02/2021 12:00:00 AM EDT 1.0 {tablet} active Meloxicam 1 5 MG eCW1 (Counts Include [facility]) 5 % 2021 12:00:00 AM EDT adhesive patch,medicate d 7 APPLY 1 PATCH TO SKIN ONCE A DAY TAKE OFF AFTER 12 HOURS APPLY 1 PATCH TO SKIN ONCE A DAY TAKE OFF AFTER 12 HOURS SOLD: 03/03/2021 [facility] calcium polycarbophil 625 MG Oral Tablet [Fiber Tab] Fiber 6 25 MG Fiber 625 MG 02/28/2021 12:00:00 AM EDT active Fiber 625 MG eCW1 (Counts Include [facility]) calcium polycarbophil 625 MG Oral Tablet [Fiber Tab] Fiber 6 25 MG Fiber 625 MG 02/28/2021 12:00:00 AM EDT active Fiber 625 MG eCW1 (Counts Include [facility]) calcium polycarbophil 625 MG Oral Tablet [Fiber Tab] Fiber 6 25 MG Fiber 625 MG 02/28/2021 12:00:00 AM EDT active Fiber 625 MG eCW1 (Counts Include [facility]) calcium polycarbophil 625 MG Oral Tablet [Fiber Tab] Fiber 6 25 MG Fiber 625 MG 02/28/2021 12:00:00 AM EDT active Fiber 625 MG eCW1 (Counts Include [facility]) calcium polycarbophil 625 MG Oral Tablet [Fiber Tab] Fiber 6 25 MG Fiber 625 MG 02/28/2021 12:00:00 AM EDT active Fiber 625 MG eCW1 (Counts Include [facility]) calcium polycarbophil 625 MG Oral Tablet [Fiber Tab] Fiber 6 25 MG Fiber 625 MG 02/28/2021 12:00:00 AM EDT active Fiber 625 MG eCW1 (Counts Include [facility]) calcium polycarbophil 625 MG Oral Tablet [Fiber Tab] Fiber 6 25 MG Fiber 625 MG 02/28/2021 12:00:00 AM EDT active Fiber 625 MG eCW1 (Counts Include [facility]) calcium polycarbophil 625 MG Oral Tablet [Fiber Tab] Fiber 6 25 MG Fiber 625 MG 02/28/2021 12:00:00 AM EDT active Fiber 625 MG eCW1 (Counts Include [facility]) calcium polycarbophil 625 MG Oral Tablet [Fiber Tab] Fiber 6 25 MG Fiber 625 MG 02/28/2021 12:00:00 AM EDT active Fiber 625 MG eCW1 (Counts Include [facility]) 625 mg 02/28/2021 12:00:00 AM EDT tablet 60 TAKE ONE TABLET BY MOUTH TWICE A DAY TAKE ONE TABLET BY MOUTH TWICE A DAY SOLD: 2021 [facility] 5 % 02/24/2021 12:00:00 AM EDT adhesive patch,medicate d 5 APPLY ONE PATCH TO AREA OF PAIN EVERY DAY REMOVE AFTER 12 HOURS APPLY ONE PATCH TO AREA OF PAIN EVERY DAY REMOVE AFTER 12 HOURS SOLD: 2021 [facility] 500 mg 02/24/2021 12:00:00 AM EDT tablet 45 TAKE ONE TABLET BY MOUTH THREE TIMES A DAY TAKE ONE TABLET BY MOUTH THREE TIMES A DAY SOLD: 2021 [facility] Cyclobenzaprine hydrochloride 5 MG Oral Tablet CYCLOBENZAPRI NE HCL 02/22/2021 12:00:00 AM EDT tablet 30 TAKE ONE TABLET BY MOUTH THREE TIMES A DAY NEEDED FOR MUSCLE SPASMS TAKE ONE TABLET BY MOUTH THREE TIMES A D AY NEEDED FOR MUSCLE SPASMS SOLD: 2021 [facility] 40 mg 02/21/2021 12:00:00 AM EDT capsule,delayed release (DR/EC) 30 TAKE ONE CAPSULE BY MOUTH EVERY MORNING 30 MINUTES BEFORE MEAL TAKE ONE CAPSULE BY MOUTH EVERY MORNING 30 MINUTES BEFORE MEAL SOLD: 02/22/2021 [facility] Omeprazole 40 MG Delayed Release Oral Capsule Omeprazole 40 MG 02/21/2021 12:00:00 AM EDT active Omeprazo le 40 MG eCW1 (Counts Include [facility]) tizanidine 4 MG Oral Tablet TIZANIDINE HCL 02/20/2021 12:00:00 AM EDT tablet 14 TAKE ONE TABLET BY MOUTH EVERY 8 HOURS NEEDED FOR P AIN TAKE ONE TABLET BY MOUTH EVERY 8 HOURS NEEDED FOR PAIN SOLD: 02/20/2021 [facility] Naproxen 500 MG Delayed Release Oral Tablet NAPROXEN 01/25 12:00:00 AM EDT tablet,delayed release (DR/EC) 14 TAKE ONE TABLET BY MOUTH EVERY 12 HOURS NEEDED FOR PAIN TAKE ONE TABLET BY MOUTH EVERY 12 HOURS NEEDED FOR PAIN SOLD: 02/22/2021 [facility] Naproxen 500 MG Delayed Release Oral Tablet Naproxen 01/25 12:00:00 AM EDT ORAL active MEDENT ( [facility]) tizanidine 4 MG Oral Tablet Tizanidine HCL 02/19/2021 12:00:00 AM EDT ORAL active MEDENT ([facility]) 10 mg 02/15/2021 12:00:00 AM EDT tablet 6 TAKE ONE TABLET BY MOUTH TWICE A DAY NEEDED FOR NAUSEA TAKE ONE TABLET BY MOUTH TWICE A DAY NEEDED FOR NAUSEA SOLD: 02/15/2021 [facility] Naproxen Sodium 220 MG Naproxen Sodium 220 MG 02/15/2021 12:00:00 AM E DT active Naproxen Sodium 220 MG eC W1 (Counts Include [facility]) Naproxen Sodium 220 MG Naproxen Sodium 220 MG 02/15/2021 12:00:00 AM E DT active Naproxen Sodium 220 MG eC W1 (Counts Include [facility]) Prochlorperazine 10 MG Oral Tablet Prochlorperazine Ma leate 10 MG Prochlorperazine Maleate 10 MG 02/15/2021 12:00:00 AM EDT 1.0 {tablet} active Prochlorperazine Maleate 10 MG e CW1 (Counts Include [facility]) Naproxen Sodium 220 MG Naproxen Sodium 220 MG 02/15/2021 12:00:00 AM E DT active Naproxen Sodium 220 MG eC W1 (Counts Include [facility]) Naproxen Sodium 220 MG Naproxen Sodium 220 MG 02/15/2021 12:00:00 AM E DT active Naproxen Sodium 220 MG eC W1 (Counts Include [facility]) Naproxen Sodium 220 MG Naproxen Sodium 220 MG 02/15/2021 12:00:00 AM E DT active Naproxen Sodium 220 MG eC W1 (Counts Include [facility]) Naproxen Sodium 220 MG Naproxen Sodium 220 MG 02/15/2021 12:00:00 AM E DT active Naproxen Sodium 220 MG eC W1 (Counts Include [facility]) Prochlorperazine 10 MG Oral Tablet Prochlorperazine Ma leate 10 MG Prochlorperazine Maleate 10 MG 02/15/2021 12:00:00 AM EDT 1.0 {tablet} active Prochlorperazine Maleate 10 MG e CW1 (Counts Include [facility]) 800 mg 01/23/2021 12:00:00 AM EDT tablet 30 TAKE ONE TABLET BY MOUTH THREE TIMES A DAY FOR 10 DAYS TAKE ONE TABLET BY MOUTH THREE TIMES A DAY FOR 10 DAYS SOLD: 01/24/2021 [facility] Cyclobenzaprine hydrochloride 10 MG Oral Tablet CYCLOBENZAPR INE HCL 01/23/2021 12:00:00 AM EDT tablet 10 TAKE ONE TABLET BY MOUTH AT BEDTIME FOR 10 DAYS TAKE ONE TABLET BY MOUTH AT BEDTIME FOR 10 DAYS SOLD: 01/24/2021 [facility] 875 mg 09/14/2020 12:00:00 AM EST tablet 14 TAKE ONE TABLET BY MOUTH EVERY 12 HOURS FOR 7 DAYS TAKE ONE TABLET BY MOUTH EVERY 12 HOURS FOR 7 DAYS TREE [facility] 500 mg 05/25/2020 12:00:00 AM EDT tablet 14 TAKE ONE TABLET BY MOUTH EVERY 12 HOURS FOR 7 DAYS TAKE ONE TABLET BY MOUTH EVERY 12 HOURS FOR 7 DAYS TREE [facility] Cyclobenzaprine hydrochloride 10 MG Oral Tablet CYCLOBENZAPR INE HCL 05/25/2020 12:00:00 AM EDT tablet 21 TAKE ONE TABLET BY MOUTH THREE TIMES A DAY FOR 7 DAYS TAKE ONE TABLET BY MOUTH THREE TIMES A DAY FOR 7 DAYS SOLD: 020 [facility] Insurance Providers Payer name Policy type / Coverage type Policy ID Covered democrat ID Covered democrat's relationship to rangel Policy Rangel Plan Information Medicaid S [id number] S [id number] Managed Care - Community Plan [facility] P [id number] S [id number] Medicaid S [id number] Managed Care - Community Plan [facility] P [id number] S [id number] Medicaid S [id number] S [id number] [facility] COMMUNITY PLAN [facility] [id number] SP [id number] Managed Care - [facility] Community Plan P [id number] S [id number] Managed Care - Community Plan [facility] P [id number] S [id number] Managed Care - [facility] Community Plan P [id number] S [id number] [facility] Commercial Insurance Co. [id number] Self [id number] Medicaid Dental O [id number] S V [id number] UNHC COMMUNITY PLAN [facility] [id number] SP [id number] [facility] [id number] SP [id number] UNHC COMMUNITY PLAN [facility] [id number] SP [id number] UNHC COMMUNITY PLAN XIX [id number] [facility] MEDICAID [id number] SP [id number] [employer] [place] WATN [id number] ANSI-Medicaid [id number] MEDICAID [id number] SP [id number] [facility](MCAID) O [id number] S [id number] Managed Care BS O [id number] Problems, Conditions, and Diagnoses Code Display Name Description Problem Type Effective Dates Data Source(s) Y9289 Other specified places as the place of o ccurrence of the external cause Other specified places as the place of occurrence of the external cause Diagnosis 2021 06:41:00 AM EDT [facility] [id number] Overexertion from strenuous movement or load, initial encounter Overexertion from strenuous movement or load, initial encounter Diagnosis 2021 06:41:00 AM EDT [facility] Z6835 Body mass index [BMI] 35.0-35.9, adult B hunter mass index [BMI] 35.0-35.9, adult Diagnosis 2021 06:41:00 AM EDT [facility] E669 Obesity, unspecified Obesity, unspecified Diagnosis 2021 06:41:00 AM EDT [facility] [id number] Strain of muscle, fascia and tendon of l ower back, initial encounter Strain of muscle, fascia and tendon of lower back, initial encounter Diagnosis 2021 06:41:00 AM EDT [facility] M545 Low back pain Low back pain Diagnosis 2021 06:41:00 AM EDT [facility] Z68.41 [id number] Body mass index (BMI) of 40.1 to 44.9 in adult Problem 03/06/2021 12:00:00 AM EDT eCW1 ([facility]) F41.8 [id number] Anxiety about health Problem 02/28/2021 12:0 0:00 AM EDT eCW1 ([facility]) K58.2 [id number] Irritable bowel syndrome with dax th constipation and diarrhea Problem 02/28/2021 12:00:00 AM EDT eCW1 ([facility]) F45.8 [id number] Nervous stomach Problem 02/21/2021 12:00:00 AM EDT eCW1 ([facility]) K29.70 [id number] Gastritis without bl eeding, unspecified chronicity, unspecified gastritis type Problem 02/21/2021 12:00:00 AM EDT eCW1 ([facility]) Z68.41 [id number] BMI 40.0-44.9, adult Problem 02/15/2021 12:0 0:00 AM EDT eCW1 ([facility]) Surgeries/Procedures Procedure Description Date Indications Data Source(s) OFFICE OUTPATIENT NEW 45 MINUTES 05/26/2021 12:00:00 A M EDT [facility] ([facility] ) OFFICE OUTPATIENT VISIT 15 MINUTES 02/19/2021 12:00:00 AM EDT [facility] ([facility]) Results ID Date Data Source [id number] 03/22/2021 04:52:00 PM EDT [facility] Name Value Range Interpretation Code Description Data Meche rce(s) Supporting Document(s) SARS coronavirus 2 RNA [Presence] in Res piratory specimen by CARA with probe detection NEGATIVE [facility] This lab was ordered by [facility] a nd reported by [facility]. ID Date Data Source [id number] 03/07/2021 03:15:00 PM EDT [facility] Name Value Range Interpretation Code Description Data Meche rce(s) Supporting Document(s) SARS coronavirus 2 RNA [Presence] in Res piratory specimen by CARA with probe detection NEGATIVE [facility] This lab was ordered by [facility] a nd reported by [facility]. ID Date Data Source [id number] 2021 06:41:00 AM EDT [facility] 1 OrderSheet [facility] Emergency Department [address] [place] [address] Phone #: ext- [phone] 06:39 Patient: NA DEWEY Sex: M : 2000 Age: 21yWEIGHT:98.8 kg (S)ALLERGIES: NoneCHIEF COMPLAINT: back painDIAGNOSIS: Lumbar sprainLAB ORDERSOrder Description Priority Entered Acknowledged InitialedDIAGNOSTIC STUDY ORDERSOrder Description Priority Entered Acknowledged InitialedMEDICATION/IV/DRIP/FLUID ORDERSOrder Description Priority Entered Acknowledged InitialedLidocaine Patch 07:31 2021 07:39 Elana Treviño (Patch 5 %) Pablito Ambriz RN1 Patch (On for 12 M.D.;hours, off for 12hours.)GENERAL ORDERSOrder Description Priority Entered Acknowledged Initialed[Electronically signed by Pablito Ambriz M.D. (07:57 2021)][Electronically signed by Sol Treviño RN (08:21 2021)] [Electronically locked by Sol Treviño RN (08:21 2021)] Name Value Range Interpretation Code Description Data Meche rce(s) Supporting Document(s) ID Date Data Source [id number] 2021 06:41:00 AM EDT [facility] 1 Medication Reconciliation Report [facility] Emergency Department [address] [place] [address] Phone #: [phone]- [phone] 06:39 Patient: NA DEWEY Sex: M : 2000 Age: 21yWeight: 98.8 kgHeight/Length: 66 in.BMI: 35.2ALLERGIES: NoneThe patient's Home Medications are listed below:CONTINUE TAKING THE FOLLOWING MEDICATIONS: No routine medications prescribed by MDThe source(s) of the original Home Medication information:Not obtained.The following Medications were given to the patient in the Emergency Department:Lidocaine Patch Transdermal 1 patch, administered: 07:39 2021The following Medications were prescribed to the patient:Lidoderm 5 % topical patch Apply 1 patch once a day for 7 days -- Take off after 12 hrs. Dispense 7patch. Refills: 0. Substitution permitted.Pharmacy - [id number] - [id number] ; [place], [place] [id number]. . -- Pablito Ambriz M.D. Name Value Range Interpretation Code Description Data [facility](s) Supporting Document(s) ID Date Data Source [id number] 2021 06:41:00 AM EDT [facility] 1 Medication Administration Record [facility] Emergency Department [address] [place] [address] Phone #: ext- [phone] 06:39 Patient: NA DEWEY Sex: M : 2000 Age: 21yWeight: 98.8 kgHeight/Length: 66 inBMI: 35.2ALLERGIES: None Date/Time Medication Administered Medication OrderedGiven LIDOCAINE PATCH Lidocaine Patch Topical (Patch 507:39 2021 Dose: 1 patch Transdermal %) 1 Patch (On for 12 hours, Sol Hennessy RN for 12 hours.) Name Value Range Interpretation Code Description Data Meche e(s) Supporting Document(s) ID Date Data Source [id number] 2021 06:41:00 AM EDT [facility] 1 General Instructions [facility] Emergency Department [address] [place] [address] Phone #: ext- [phone] 06:39 Patient: NA DEWEY Sex: M : 2000 Age: 21yAcute lumbar strain (mild).INSTRUCTIONSApply ice for 30 minutes four times a day for two days followed by moist heat 30 minutes four times a dayfor five days. Don't apply ice directly to skin, don't use while asleep and don't use high setting on heatingpad. Limit lifting until well. No strenuous activity until better.(PLEASE CONTINUE THE NAPROSYN OBTAINED FROM [facility] ER THE OTHER DAY ASPRESCRIBED;PLEASE FOLLOW UP WITH YOUR FAMILY MD IN NEXT WEEK FOR PHYSICAL THERAPY ASNEEDED).Warnings: GENERAL WARNINGS: Return or contact your physician immediately if your conditionworsens or changes unexpectedly, if not improving as expected, or if other problems arise.SPECIFICALLY, return if you develop weakness of the foot or leg, numbness, tingling, pain or incontinenceof feces (loss of bowel control) or urine (loss of bladder control).Your Current Medications: Your current home medications have been reviewed.CONTINUE TAKING THE FOLLOWING MEDICATIONS:No routine medications prescribed by MD*.Prescription Medications:Lidoderm 5 % topical patch Apply 1 patch once a day for 7 days -- Take off after 12 hrs. Dispense 7patch. Refills: 0. Substitution permitted.Pharmacy - [facility] - [id number] ; [place], [place] [phone]. .Follow-up:Return to the emergency department as needed. Follow up with your healthcare provider in five dayseven if well. Call for an appointment. Reason for referral: evaluation and treatment. Summary of careprovided to patient via paper.Understanding of the discharge instructions verbalized by patient. Expected course of injury, dischargeinstructions, activity level, diet, prescriptions x1, follow-up appointment and risks and benefits of treatmentreviewed with patient and understanding verbalized. Agrees to plan of care. ADDITIONAL INFORMATION 2 General Instructions [facility] Emergency Department [address] [place] [address] Phone #: ext- [phone] 06:39 Patient: NA DEWEY Sex: M : 2000 Age: 21yBack Pain (Acute or Chronic)Back pain is one of the most common problems. The good news is that most people feel better in 1 to2 weeks, and most of the rest in 1 to 2 months. Most people can remain active.People who have pain describe it differently--not everyone is the same. The pain can be sharp, stabbing, shooting, aching, cramping or burning. Movement, standing, bending, lifting, sitting, or walking may worsen pain. It can be limited to one spot or area, or it can be more generalized. It can spread upwards, to the front, or go down your arms or legs (sciatica). It can cause muscle spasm.Most of the time, mechanical problems with the muscles or spine cause the pain. Mechanical 3 General Instructions [facility] Emergency Department [address] [place] [address] Phone #: ext- [phone] 06:39 Patient: NA DEWEY Sex: M : 2000 Age: 21yproblems are usually caused by an injury to the muscles or ligaments. Illness can cause back pain,but it's usually not caused by a serious illness. Mechanical problems include: Physical activity such as sports, exercise, work, or normal activity Overexertion, lifting, pushing, pu lling incorrectly or too aggressively Sudden twisting, bending, or stretching from an accident, or accidental movement Poor posture Stretching or moving wrong, without noticing pain at the time Poor coordination, lack of regular exercise (check with your doctor about this) Spinal disc disease or arthritis StressPain can also be related to , or illness like appendicitis, bladder or kidney infections, pelvicinfections, and many other things.Acute back pain usually gets better in 1 to 2 weeks. Back pain related to disk disease, arthritis in thespinal joints, or narrowing of the spinal canal (spinal stenosis) can become chronic and last formonths or years.Unless you had a physical injury such as a car accident or fall, X-rays are usually not needed for thefirst assessment of back pain. If pain continues and does not respond to medical treatment, you mayneed X-rays and other tests.Home careTry this home care advice: When in bed, try to find a position of comfort. A firm mattress is best. Try lying flat on your back with pillows under your knees. You can also try lying on your side with your knees bent up toward your chest and a pillow between your knees. At first, don't try to stretch out the sore spots. If there is a strain, it's not like the good soreness you get after exercising without an injury. In this case, stretching may make it worse. Don't sit for long periods, as in a long car ride or during other travel. This puts more stress on the lower back than standing or walking. During the first 24 to 72 hours after an acute injury or flare up of chronic back pain, apply an ice pack to the painful area for 20 minutes and then remove it for 20 minutes. Do this over a period of 60 to 90 minutes or several times a day. This will reduce swelling and pain. Wrap the ice pack in a thin towel or plastic to protect your skin. 4 General Instructions [facility] Emergency Department [address] [place] [address] Phone #: ext- [phone] 06:39 Patient: NA DEWEY Sex: M : 2000 Age: 21y You can start with ice, then switch to heat. Heat (hot shower, hot bath, or heating pad) reduces pain and works well for muscle spasms. Heat can be applied to the painful area for 20 minutes then remove it for 20 minutes. Do this over a period of 60 to 90 minutes or several times a day. Don't sleep on a heating pad. It can lead to skin escobar or tissue damage. You can alternate ice and heat therapy. Talk with your doctor about the best treatment for your back pain. Therapeutic massage can help relax the back muscles without stretching them. Be aware of safe lifting methods and don't lift anything without stretching first.MedicinesTalk to your doctor before using medicine, especially if you have other medical problems or are takingother medicines. You may use kxnb-hnz-[id number] medicine as directed on the bottle to control pain, unless another pain medicine was prescribed. If you have chronic conditions like diabetes, liver or kidney disease, stomach ulcers, or gastrointestinal bleeding, or are taking blood thinners, talk to your doctor before taking any medicine. Be careful if you are given a prescription medicines, narcotics, or medicine for muscle spasms. They can cause drowsiness, affect your coordination, reflexes, and judgement. Don't drive or operate heavy machinery.Follow-up careFollow up with your healthcare provider, or as advi sed.If X-rays were taken, you will be told of any new findings that may affect your careCall 911Call 911 if any of the following occur: Trouble breathing Confusion Very drowsy or trouble awakening Fainting or loss of consciousness Rapid or very slow heart rate Loss of bowel or bladder control 5 General Instructions [facility] Emergency Department [address] [place] [address] Phone #: ext- [phone] 06:39 Patient: NA DEWEY Sex: M : 2000 Age: 21yWhen to seek medical adviceCall your healthcare provider right away if any of these occur: Pain becomes worse or spreads to your legs Weakness or numbness in one or both legs Numbness in the groin or genital area 1976-2037 The [employer]. [address] [place] [address]. All rights reserved. This information is not intended as asubstitute for professional medical care. Always follow your healthcare professional's instructions. You have been given the following additional information: Back Pain (Acute or Chronic) Limit lifting until well. No strenuous activity until better.(Electronically signed by Pablito Ambriz M.D. 2021 07:57) Name Value Range Interpretation Code Description Data Meche rce(s) Supporting Document(s) ID Date Data Source [id number] 2021 06:41:00 AM EDT [facility] 1 Clinical Report - Nurses [facility] Emergency Department [address] [place] [address] Phone #: ext- [phone] 06:39 Patient: NA DEWEY Sex: M : 2000 Age: 21yTRIAGEArrived by private vehicle. Historian: patient.Triage t manjit: 06:40 2021.Chief Complaint: BACK PAIN.Onset. (2 weeks ago). 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 (Saturday ([facility])Took Naproxen last yesterday at 8pm). --06:42 03/01/21 Lara Noonan R.N.Acuity: LEVEL 4.SEPSIS SCREEN: SEPSIS SCREEN NEGATIVE. No suspected or confirmed signs of infection present.--06:44 03/01/21 Lara Noonan R.N.06:43 03/01/21. BP: 142/90. MAP: 107. HR: 81. RR: 16. O2 saturation: 96%. Temp: 97.5 F. Pain levelnow: 9/10. --06:44 03/01/21 Lara Noonan R.N.Treatment YARD CALLER:(Saw his PCP on ). --06:45 7/7/21 Lara Noonan R.N.Chief Complaint: ("I am here for a second opinion on my back pain"). --06:48 03/01/21 Lara Noonan R.N.Weight: 98.8 kg stated. Height/Length: 66 inches Per Patient. BMI: 35.2. --06:40 03/01/21 Lara Noonan R.N.MedicationsNo routine medications prescribed by MD. --06:42 03/01/21 Lara Noonan R.N.AllergiesNone. --06:42 03/01/21 Lara Noonan R.N.PROBLEMS:no known problems.ADDITIONAL SURGERIES:no known surgeries. 2 Clinical Report - Nurses [facility] Emergency Department [address] [place] [address] Phone #: ext- [phone] 06:39 Patient: NA DEWEY [facility]#: [id number] Sex: Suzy : 2000 Age: 21y History SOCIAL HX: Never smoker. No alcohol use or drug use. He was offered HIV testing but declined and hepatitis C testing but declined. He has not t raveled outside the [place] Infectious disease exposure: No infectious disease exposure. SELF HARM ASSESSMENT: Self harm assessment was performed. The patient answered "no" to the question(s) "Do you have thoughts of harming or killing yourself?" and "Have you recently had thoughts about harming or killing others?". ABUSE ASSESSMENT: No report of abuse. FALL RISK ASSESSMENT: Fall risk assessment completed. Risk factors identified include severe pain. Fall interventions initiated. Bed in low position. Brakes on. Call light in reach of patient. --06:44 03/01/21 Lara Noonan R.N.PHYSICAL ASSESSMENTAmbulatory to room.GENERAL / NEURO / PSYCH: Alert. Oriented X 4.RESPIRATORY: Respirations not labored.CVS: Capillary refill less than 2 seconds.GI / : ( No GI/ symptoms). BACK: ( reports intermittent pain right low back and buttocks that radiates down leg and left shoulderblade intermittently). --06:47 03/01/21 Lara Noonan R.N.NURSING PROGRESS NOTESCall light placed in reach. Bed placed in lowest position. Brakes of bed on. --06:45 03/01/21 Lara Pelayo R.N. 07:39 2021 Lidocaine Patch Transdermal 1 patch applied. Allergies verified and confirmed 5 rights. Information reviewed with patient including reason for taking this medication. Verbalizes understanding. --07:39 03/01/21 Sol Treviño RN.DISPOSITION / DISCHARGE Condition at departure: stable. No learning barriers present. Discharge instructions provided and reviewed with the patient. Reviewed medication(s) side effects, precautions, dosing and course information. Prescription(s) sent electronically to pharmacy. Reviewed rest and ice instructions. Reviewed referral to a primary care physician. Patient verbalized understanding. Written instructions provided in Palestinian. The patient was discharged by the physician. He was discharged home and accompanied by parent. He left ambulatory and via private vehicle. Parent driving. --08:10 03/01/21 Sol Treviño, MITCHELL 07:40 03/01/21. BP: 140/88. MAP: 105. HR: 78. RR: 16. O2 saturation: 99%. Temp: deferred. Pain level now: 04/04. --08:10 03/01/21 Sol Treviño, MITCHELL 3 Clinical Report - Nurses [facility] Emergency Department [address] [place] [address] Phone #: ext- [phone] 06:39 Patient: NA DEWEY Sex: M : 2000 Age: 21y Departure time: 07:42 2021. --08:10 03/01/21 Sol Treviño RN.Locked/Released at 2021 08:21 by Sol Treviño RN Name Value Range Interpretation Code Description Data Meche rce(s) Supporting Document(s) ID Date Data Source [id number] 0001 2021 06:41:00 AM EDT [facility] 1 Clinical Report - Physicians/Mid Levels [facility] Emergency Department [address] [place] [address] Phone #: ext- [phone] 06:39 Patient: NA DEWEY Sex: M : 2000 Age: 21y Time Seen: 07:28 2021; initial patient contact. Arrived- By private vehicle. Historian- patient. History limited by vague historian. Disposition decision: 07:35 2021.HISTORY OF PRESENT ILLNESS Chief Complaint: BACK PAIN. It is described as being mild and in the area of the right lower lumbar spine. The quality is noted to be dull. No radiation. Onset- 2 weeks ago and it is still present. Modifying factors- worsened by bending over. Relieved by remaining still. No bladder dysfunction, bowel dysfunction, sensory loss or motor loss. 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 Patient notes an injury. Mechanism of injury- he was lifting, turning and bending (cleans at work). Occurred at work. No injury to the head or neck. Similar symptoms previously. Patient has had similar symptoms occasionally. Recent medical care: Not recently seen/assessed.REVIEW OF SYSTEMSNo fever, chills, eye irritation, difficulty with urination or urinary frequency. No hematuria, skin rash,headache, depression or sore throat. No cough, difficulty breathing, chest pain, abdominal pain ornausea. No vomiting, diarrhea, black stools or bloody stools. All other systems reviewed and arenegative.PAST HISTORYSee nurses notes. Problems: no kno wn problems. Additional Surgeries: no known surgeries. Medications: No routine medications prescribed by MD. Allergies: None.SOCIAL HISTORY 2 Clinical Report - Physicians/Mid Levels [facility] Emergency Department [address] [place] [address] Phone #: [phone] rcp- [phone] 06:39 Patient: NA DEWEY Sex: M : 2000 Age: 21y Never smoker. No alcohol use or drug use.ADDITIONAL NOTESThe nursing notes have been reviewed with agreement regarding the chief complaint, HPI, ROS, PMH andpatient medications and allergies.PHYSICAL EXAMVital Signs: 2021 06:43 BP: 142/90. MAP: 107. HR: 81. RR: 16. O2 saturation: 96%. Temp: 97.5 F.Pain level now: 9/10. Have been reviewed. Oxygen saturation normal.Appearance: Alert. No acute distress.HEENT: Normal external inspection.Eyes: Pupils equal, round and reactive to light.ENT: Pharynx no rmal.Neck: Normal inspection. Neck nontender. Painless ROM.CVS: Heart sounds normal. Pulses normal.Respiratory: No respiratory distress. Painless inspiration. Breath sounds normal.Abdomen: No visible injury. Soft and nontender. Bowel sounds normal. No organomegaly. No mass.Femoral pulses equal. Mildly obese.Back: Normal inspection. Painless ROM. Soft tissue tenderness in the right lower lumbar area (verymild). No muscle spasm in the back, vertebral point tenderness, CVA tenderness or limitation in ROM.Skin: Skin warm and dry. Normal skin color. No rash. Normal skin turgor.Extremities: Extremities exhibit normal ROM. Extremities nontender.Neuro: Oriented X 3. Mood/affect normal. No motor deficit. No sensory deficit. Straight leg raising:negative on the right and negative on the left. Reflexes normal.PROGRESS AND PROCEDURESCourse of Care: 07:34 03/01/21. pt has a mild lumbar strain in ER w minimal findings on exam; pt had nmlCT at [facility] ER last week; pt has Naprosyn at home from ER visit; pt will be given Lidocaine patch andadvised to f/u w [employer] for further care such as PT and/or MRI as needed. Patient counseled in person regarding the patient's stable condition, test results, diagnosis and need for follow-up. Patient agrees with plan of care. Disposition: Condition: good and stable. Discharge decision based on the following: patient's condition is stable; patient's condition is improved; patient is ambulatory; patient is active; patient drinking fluids; patient eating; patient's pain is controlled; patient's exam is improved; improving condition on repeat evaluation; social support is good; transportation is available; follow-up is available; clinical impression is consistent with outpatient treatment.CLINICAL IMPRESSION Acute lumbar strain (mild). 3 Clinical Report - Physicians/Mid Levels [facility] Emergency Department [address] [place] [address] Phone #: ext- [phone] 06:39 Patient: NA DEWEY [facility]#: [id number] Sex: M : 2000 Age: 21yINSTRUCTIONS Apply ice for 30 minutes four times a day for two days followed by moist heat 30 minutes four times a day for five days. Don't apply ice directly to skin, don't use while asleep and don't use high setting on heating pad. Limit lifting until well. No strenuous activity until better. (PLEASE CONTINUE THE NAPROSYN OBTAINED FROM [facility] ER THE OTHER DAY PRESCRIBED; PLEASE FOLLOW UP WITH YOUR FAMILY MD IN NEXT WEEK FOR PHYSICAL THERAPY NEEDED). Warnings: GENERAL WARNINGS: Return or contact your physician immediately if your condition worsens or changes unexpectedly, if not improving as expected, or if other problems arise. SPECIFICALLY, return if you develop weakness of the foot or leg, numbness, tingling, pain or incontinence of feces (loss of bowel control) or urine (loss of bladder control). Your Current Medications: Your current home medications have been reviewed. CONTINUE TAKING THE FOLLOWING MEDICATIONS: No routine medications prescribed by MD*. Prescription Medications: Lidoderm 5 % topical patch Apply 1 patch once a day for 7 days -- Take off after 12 hrs. Dispense 7 patch. Refills: 0. Substitution permitted. Pharmacy - [facility] - [id number] ; [place], [place] [phone]. Phone: . Follow-up: Return to the emergency department as needed. Follow up with your healthcare provider in five days even if well. Call for an appointment. Reason for referral: evaluation and treatment. Summary of care provided to patient via paper. Understanding of the discharge instructions verbalized by patient. Expected course of injury, discharge instructions, activity level, diet, prescriptions x1, follow-up appointment and risks and benefits of treatment reviewed with patient and understanding verbalized. Agrees to plan of care.(Electronically signed by Pablito Ambriz M.D. 2021 07:57) Name Value Range Interpretation Code Description Data Meche rce(s) Supporting Document(s) Procedure Social History Code Duration Value Status Description Data Source(s ) Smoking 04/20/2021 12:00:00 AM EDT Never Smoker completed Never S moker eCW1 ([facility]s [facility]) Smoking 04/13/2021 12:00:00 AM EDT Never Smoker completed Never S moker eCW1 (Counts Include [facility]) Smoking 03/06/2021 12:00:00 AM EDT Never Smoker completed Never S moker eCW1 (Counts Include [facility]) Smoking 03/06/2021 12:00:00 AM EDT Never Smoker completed Never S moker eCW1 (Counts Include [facility]) Smoking 03/06/2021 12:00:00 AM EDT Never Smoker completed Never S moker eCW1 (Counts Include [facility]) Smoking 03/06/2021 12:00:00 AM EDT Never Smoker completed Never S moker eCW1 (Counts Include [facility]) Smoking 03/06/2021 12:00:00 AM EDT Never Smoker completed Never S moker eCW1 (Counts Include [facility]) Smoking 03/06/2021 12:00:00 AM EDT Never Smoker completed Never S moker eCW1 (Counts Include [facility]) Smoking 03/02/2021 12:00:00 AM EDT Never Smoker completed Never S moker eCW1 (Counts Include [facility]) Smoking 02/26/2021 12:00:00 AM EDT Never Smoker completed Never S moker eCW1 (Counts Include [facility]) Smoking 02/21/2021 12:00:00 AM EDT Never Smoker completed Never S moker eCW1 (Counts Include [facility]) Smoking 02/21/2021 12:00:00 AM EDT Never Smoker completed Never S moker eCW1 (Counts Include [facility]) Smoking 02/21/2021 12:00:00 AM EDT Never Smoker completed Never S moker eCW1 (Counts Include [facility]) Smoking 02/21/2021 12:00:00 AM EDT Never Smoker completed Never S moker eCW1 (Counts Include [facility]) Smoking 02/15/2021 12:00:00 AM EDT Never Smoker completed Never S moker eCW1 (Counts Include [facility]) Smoking 01/26/2021 12:00:00 AM EDT Never Smoker completed Never S moker eCW1 (Counts Include [facility]) Vital Signs ID Date Data Source UNK Name Value Range Interpretation Code Description Data Source(s) Body temperature 97.3 [degF] 97.3 [degF] MEDENT ([facility] ) Body mass index (BMI) [Ratio] 37.9 kg/m2 37.9 k g/m2 MEDENT ([facility] ) Body height 66 [in_i] 66 [in_i] MEDENT ([facility] ) 5'6" Body weight 235.00 [lb_av] 235.00 [lb_av] MEDEN T ([facility] ) Body weight 214.0 [lb_av] 214.0 [lb_av] eCW1 ([facility]) Body height [in_i] eCW1 ([facility]) Body mass index (BMI) [Ratio] 41.79 kg/m2 41.79 kg/m2 eCW1 (Counts Include [facility]) Heart rate 90 /min 90 /min eCW1 ([facility]) Respiratory rate 18 /min 18 /min eCW1 ([facility]) Body temperature 98.7 [degF] 98.7 [degF] eCW1 ( Counts Include [facility]) Systolic blood pressure 120 mm[Hg] 120 mm[Hg] e CW1 (Counts Include [facility]) Diastolic blood pressure 80 mm[Hg] 80 mm[Hg] eCW1 (Counts Include [facility]) Body weight 215.6 [lb_av] 215.6 [lb_av] eCW1 ([facility]) Body height [in_i] eCW1 ([facility]) Body mass index (BMI) [Ratio] 42.10 kg/m2 42.10 kg/m2 eCW1 ([facility]s Include [facility]) Heart rate 100 /min 100 /min eCW1 ([facility]) Respiratory rate 18 /min 18 /min eCW1 ([facility]) Body temperature 98.4 [degF] 98.4 [degF] eCW1 ( Counts Include [facility]) Systolic blood pressure 120 mm[Hg] 120 mm[Hg] e CW1 (Counts Include [facility]) Diastolic blood pressure 80 mm[Hg] 80 mm[Hg] eCW1 (Counts Include [facility]) Body weight 216.2 [lb_av] 216.2 [lb_av] eCW1 ([facility]) Body height [in_i] eCW1 ([facility]) Body mass index (BMI) [Ratio] 42.22 kg/m2 42.22 kg/m2 eCW1 (Counts Include [facility]) Heart rate 90 /min 90 /min eCW1 ([facility]) Respiratory rate 18 /min 18 /min eCW1 ([facility]) Body temperature 98 [degF] 98 [degF] eCW1 ([facility]) Systolic blood pressure 130 mm[Hg] 130 mm[Hg] e CW1 (Counts Include [facility]) Diastolic blood pressure 60 mm[Hg] 60 mm[Hg] eCW1 (Counts Include [facility]) Diastolic blood pressure 80 mm[Hg] 80 mm[Hg] eCW1 (Counts Include [facility]) Body weight 215.0 [lb_av] 215.0 [lb_av] eCW1 ([facility]) Body height [in_i] eCW1 ([facility]) Body mass index (BMI) [Ratio] 41.98 kg/m2 41.98 kg/m2 eCW1 (Counts Include [facility]) Heart rate 88 /min 88 /min eCW1 ([facility]) Respiratory rate 18 /min 18 /min eCW1 ([facility]) Body temperature 98.7 [degF] 98.7 [degF] eCW1 ( Counts Include [facility]) Systolic blood pressure 118 mm[Hg] 118 mm[Hg] e CW1 (Counts Include [facility]) Systolic blood pressure 131 mm[Hg] 131 mm[Hg] M EDENT ([facility]) Respiratory rate 14 /min 14 /min MEDENT ( [facility]) Oxygen saturation in Arterial blood by Pulse oximetry 98 % 98 % MEDENT ([facility]) Body temperature 97.8 [degF] 97.8 [degF] MEDENT ([facility]) Body weight 220.00 [lb_av] 220.00 [lb_av] MEDEN T ([facility]) Body height 67 [in_i] 67 [in_i] MEDENT ([facility]) 5'7" Body mass index (BMI) [Ratio] 34.5 kg/m2 34.5 k g/m2 MEDENT ([facility]) Diastolic blood pressure 91 mm[Hg] 91 mm[Hg] MEDENT ([facility]) Heart rate 89 /min 89 /min MEDENT ([facility]) Body weight 220.8 [lb_av] 220.8 [lb_av] eCW1 ([facility]) Body height [in_i] eCW1 ([facility]) Body mass index (BMI) [Ratio] 43.12 kg/m2 43.12 kg/m2 eCW1 (Counts Include [facility]) Heart rate 90 /min 90 /min eCW1 ([facility]) Respiratory rate 18 /min 18 /min eCW1 ([facility]) Systolic blood pressure 128 mm[Hg] 128 mm[Hg] e CW1 (Counts Include [facility]) Diastolic blood pressure 80 mm[Hg] 80 mm[Hg] eCW1 (Counts Include [facility]) Body temperature 98.6 [degF] 98.6 [degF] eCW1 ( Counts Include [facility]) Patient Treatment Plan of Care Planned Activity Planned Date Details Description Data Source (s) meloxicam 15 MG Oral Tablet 03/02/2021 12:00:00 AM EDT eCW1 (Counts Include [facility]) Omeprazole 40 MG Delayed Release Oral Capsule 02/21/2021 12:00:00 A M EDT eCW1 (Counts Include [facility]) Naproxen Sodium 220 MG 02/15/2021 12:00:00 AM EDT eCW1 (Counts Include [facility]) Prochlorperazine 10 MG Oral Tablet 02/15/2021 12:00:00 AM EDT eCW1 (Counts Include [facility])
--- OUTSIDE RECORDS SUMMARY | 2021-06-27 13:16 | CCD ---
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 628427062 Problem Irritable bowel syndrome with both constipation and diarrh ea K58.2 Active confirmed 12738944 Problem Body mass index (BMI) of 40.1 to 44.9 in adult Z68 .41 Active confirmed 548788943 Problem Emotional crisis F43.20 Active confirmed 309 425482 Problem Gastritis without bleeding, unspecified chronicity, unspecified gastritis type K29.70 Active confirmed 4383992 Problem 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 Code:[address]-15) Anaphylaxis Drug Allerg y Active ENCOUNTERS from 1999 to 2021-05-08 Encounter Location Date Provider Diagnosis [address] [phone] [place] [address] Mar, Genny Pearson IMMUNIZATIONS Vaccine Route Administration [...] Education Language: Question Answer Notes Languages spoken: Czech Orthodoxy: Question Answer Notes Orthodoxy 33 None Sexual Hx: Question Answer Notes [...] Information RESULTS No Results REASON FOR VISIT no show d/c? MEDICAL (GENERAL) HISTORY Type Description Date Surgical History No Surgical history information Hospitalization History febrile seizures as an infant ([facility]) Goals Section No Information Health Concerns No Information MEDICAL EQUIPMENT No Information MENTAL STATUS No Information FUNCTIONAL STATUS No Information ASSESSMENTS No Information PLAN OF TREATMENT Next Appt Details Provider Name:Genny Pearson, 03:00:00 PM, [address] [facility], , [place], [address], Insurance Providers Payer Name Payer Address Payer Phone Insured Name Patient Relati onship to Insured Coverage Start Date Coverage End Date [facility] COMMUNITY PLAN [facility] [id number] [facility] [phone] [place] self
--- OUTSIDE RECORDS SUMMARY | 2021-06-27 13:16 | CCD | Continuity of Care Document ---
Author Author [facility] Organization Unknown Address [address] [place] [address], [address] [address] Phone [phone] Care Team Providers Care Inverform Machine Operator Name Role Phone Kyle Lara MD AUTM Unavailable Genny Pearson AUTM [phone] Problems Description No Information Available Social History Type Date Description Comments Sex Unknown Allergies and adverse reactions Description No Known Drug Allergies Medications Description No Active Medications Immunizations Description No Information Available Vital Signs Date Vital Result Comment 05/26/2021 11:24am Body Temperature 97.3 F Height 66 inches 5'6" Weight 235.00 lb BMI (Body Mass Index) 37.9 kg/m2 Results Description No Information Available Procedures Date Code Description Status 05/26/2021 01306 Office/Outpatient New Moderate M DM 45-59 Minutes Completed Medical Devices Description No Information Available Encounters Type Date Location Provider Dx Diagnosis Office Visit 05/26/2021 11:00a [place] Al Mckinney M54.59 Other low back pain Assessments Date Code Description Provider 05/26/2021 M54.59 Other low back pain Al Jung Plan of Treatment Future Appointment(s):* 06/28/2021 2:00 pm - Elise Javed PTA at Physical Therapy Functional Status Description No Information Available Mental Status Description No Information Available Referrals Refer to Reason for Referral Status Appt Date Authorization for PT eval fo r low back. 02627, 39604, 27753. [facility] Passed to PT departement. [place] Created Authorization for 89388, low back, 64-15 min vis its. PURVI Created [place] MD M54.5 LOW BACK PAIN Created [address] [facility], [address] [place] [address] [phone]
--- OUTSIDE RECORDS SUMMARY | 2021-06-27 13:16 | CCD | Continuity of Care Document ---
Author Author [facility] Organization Unknown Address [address] [place] [address], [address] [place] [address] Phone [phone] Care Team Providers Care Nurse Researcher Name Role Phone Kyle Lara MD AUTM Unavailable Genny Pearson AUTM [phone] Problems Description No Information Available Social History [...] Available Procedures Date Code Description Status 05/26/2021 71584 Office/Outpatient New Moderate M DM 45-59 Minutes Completed Medical Devices Description No Information Available Encounters Type Date Location Provider Dx Diagnosis Office Visit 05/26/2021 11:00a [place] Al Mckinney M54.59 Other low back pain [...] M54.5 LOW BACK PAIN Created 00 [address] [facility], [address] [place], [place] [id number] [phone]
--- OUTSIDE RECORDS SUMMARY | 2021-06-27 13:16 | CCD | Continuity of Care Document ---
Author Author [facility] Organization Unknown Address [address] [place] [address] Phone [phone] Care Team Providers Care Aerospace Engineer Officer Armament Name Role Phone Kyle Lara MD AUTM Unavailable Genny Pearson AUTM [phone] Problems Description No Information Available Social History [...] M54.5 LOW BACK PAIN Created 00 [address] [facility] [address] [place] [address] [phone]
--- OUTSIDE RECORDS SUMMARY | 2021-06-27 13:16 | CCD ---
Continuity of Care Document (CCD) Created on: 05/26/2021 Rodrick Alvarez External Reference #: [id number] : 2000 Sex: Male Author Author [facility] Organization Unknown Address [address] [place] [address] Phone [phone] Care Team Providers Care Cage Maker Name Role Phone Kyle Lara MD AUTM Unavailable Genny Pearson AUTM [phone] Problems Description No Information Available Social History [...] M54.5 LOW BACK PAIN Created 00 [address] [facility], [facility] [address] [place] [address] [phone]
--- OUTSIDE RECORDS SUMMARY | 2021-06-27 13:16 | CCD ---
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 530702691 Problem Irritable bowel syndrome with both constipation and diarrh ea K58.2 Active confirmed 10889438 Problem Body mass index (BMI) of 40.1 to 44.9 in adult Z68 .41 Active confirmed 655996565 Problem Emotional crisis F43.20 Active confirmed 309 491506 Problem Gastritis without bleeding, unspecified chronicity, unspecified gastritis type K29.70 Active confirmed 9385653 Problem 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 Active confirmed 3866 79266 Problem Anxiety about health F41.8 Active confirmed 040996656 ALLERGIES Allergen (clinical drug ingredient) Drug/Non Drug Allergy do cumented on EMR Reaction Allergy Type Onset Date Status Bee Pollen([facility] Code:[address]-99) Anaphylaxis Drug Allerg y Active ENCOUNTERS from 1999 to 2021-03-29 Encounter Location Date Provider Diagnosis [address] [phone] [place] [address] Mar, Genny Pearson IMMUNIZATIONS Vaccine Route Administration [...] class of 2017 Audit Question Answer Notes Interpretation: Alcohol Education Total Score: 0 Language: Question Answer Notes Languages spoken: Czech Shinto: Question Answer Notes Shinto 33 None Sexual Hx: Question Answer Notes Had sex in the last 12 months (vaginal, oral, or anal)? No Have you ever had an STD? No Drug and Alcohol Question Answer Notes Interpretation: No problems reported Total Score: 0 Alcohol Screening: Question Answer Notes Did you have a drink containing alcohol in the past year? No Points 0 Interpretation Negative Tobacco Use: Question Answer Notes Are you a: never smoker never smoker REASON FOR REFERRAL No Information VITAL SIGNS No information MEDICATIONS Medication SIG (Take, Route, Frequency, Duration) Notes Start Da te End Date Status Fiber 625 MG 1 tab Orally bid for 30 days Feb, Active Meloxicam 15 MG 1 tablet Orally Once a day for 30 day(s) Active Omeprazole 40 MG 1 capsule 30 minutes before morning meal Orally Once a day for 30 days Active PROCEDURES No Information RESULTS No Results REASON FOR VISIT letter for work MEDICAL (GENERAL) HISTORY Type Description Date Surgical History No Surgical history information Hospitalization History febrile seizures as an infant ([facility]) Goals Section No Information Health Concerns No Information MEDICAL EQUIPMENT No Information MENTAL STATUS No Information FUNCTIONAL STATUS No Information ASSESSMENTS No Information PLAN OF TREATMENT Medication Medication Name Sig Start Date Stop Date Meloxicam 15 MG 1 tablet Orally Once a day for 30 day(s) Omeprazole 40 MG 1 capsule 30 minutes before morning meal Orally Once a day for 30 days Next Appt Details Provider Name:Genny Wagneraury, 11:00:00 AM, [address] [place] [address] [facility] [address], Provider Name:Genny Wagneraury, 10:30:00 AM, [address] [place] [address] , [place], [address], Insurance Providers Payer Name Payer Address Payer Phone Insured Name Patient Relati onship to Insured Coverage Start Date Coverage End Date [facility] COMMUNITY PLAN [facility] [address] [facility] [phone] [place] self
[2021-06-27 15:33] LABS: BASO # 0.1 10^3/uL (0.0-0.2); BASO % 0.6 % (0.0-1.0); EOS % 0.2 % (0.0-3.0); HEMATOCRIT 47.5 % (42.0-52.0); HEMOGLOBIN 16.4 g/dl (13.5-17.5); LYMPH # 1.9 10^3/uL (1.5-5.0); LYMPH % 17.9 % (24.0-44.0); MEAN CORPUSCULAR HGB CONC 34.5 g/dl (32.0-36.5); MONO # 0.8 10^3/uL (0.0-0.8); MONO % 7.3 % (2.0-8.0); NEUTROPHILS # 7.8 10^3/uL (1.5-8.5); NEUTROPHILS % 73.6 % (36.0-66.0); PLATELET COUNT, AUTOMATED 318 10^3/uL (150-450); RED BLOOD COUNT 5.46 10^6/uL (4.30-6.10); WHITE BLOOD COUNT 10.6 10^3/uL (4.0-10.0)
[2021-06-27 15:57] LABS: ALBUMIN 4.2 GM/DL (3.2-5.2); ALT/SGPT 42 U/L (12-78); BILIRUBIN,DIRECT 0.1 MG/DL (0.0-0.2); BILIRUBIN,TOTAL 0.5 MG/DL (0.2-1.0); BLOOD UREA NITROGEN 7 MG/DL (7-18); CALCIUM LEVEL 9.5 MG/DL (8.5-10.1); CARBON DIOXIDE LEVEL 25 MEQ/L (21-32); CHLORIDE LEVEL 106 MEQ/L (98-107); CREATININE FOR GFR 0.91 MG/DL (0.70-1.30); GLOMERULAR FILTRATION RATE > 60.0 (>60); GLUCOSE, FASTING 102 MG/DL (70-100); LIPASE 52 U/L (73-393); SODIUM LEVEL 136 MEQ/L (136-145); TOTAL PROTEIN 8.1 GM/DL (6.4-8.2)
[2021-06-27] MEDS ORDERED: ACET-683 PO (16:49)
--- OUTSIDE RECORDS SUMMARY | 2021-06-27 17:07 | CCD ---
Author Author [facility] Organization [facility] Address Unknown Phone Unavailable Care Team Providers Care Career Resource Technician Name Role Phone Maring, Mandie PA Unavailable [...] Mandie PA Unavailable Unavailable Servage, L Genny BUTADIENE CONVERTER HELPER Unavailable Unavailable Servage, L Genny BUTADIENE CONVERTER HELPER Unavailable Unavailable Servage, L Genny BUTADIENE CONVERTER HELPER Unavailable Unavailable Servage, L Genny BUTADIENE CONVERTER HELPER Unavailable Unavailable Servage, L Genny BUTADIENE CONVERTER HELPER Unavailable Unavailable Servage, L Genny BUTADIENE CONVERTER HELPER Unavailable Unavailable Servage, L Genny BUTADIENE CONVERTER HELPER Unavailable Unavailable Servage, L Genny BUTADIENE CONVERTER HELPER Unavailable Unavailable Servage, L Genny BUTADIENE CONVERTER HELPER Unavailable Unavailable Servage, L Genny BUTADIENE CONVERTER HELPER Unavailable Unavailable Servage, L Genny BUTADIENE CONVERTER HELPER Unavailable Unavailable Servage, L Genny BUTADIENE CONVERTER HELPER Unavailable Unavailable Servage, L Genny BUTADIENE CONVERTER HELPER Unavailable Unavailable Servage, L Genny BUTADIENE CONVERTER HELPER Unavailable Unavailable Servage, L Genny BUTADIENE CONVERTER HELPER Unavailable Unavailable Servage, L Genny BUTADIENE CONVERTER HELPER Unavailable Unavailable Servage, L Genny BUTADIENE CONVERTER HELPER Unavailable Unavailable Servage, L Genny BUTADIENE CONVERTER HELPER Unavailable Unavailable Servage, L Genny BUTADIENE CONVERTER HELPER Unavailable Unavailable Servage, L Genny BUTADIENE CONVERTER HELPER Unavailable Unavailable Servage, L Genny BUTADIENE CONVERTER HELPER Unavailable Unavailable Servage, L Genny BUTADIENE CONVERTER HELPER Unavailable Unavailable Servage, L Genny BUTADIENE CONVERTER HELPER Unavailable Unavailable Servage, L Genny BUTADIENE CONVERTER HELPER Unavailable Unavailable Servage, L Genny BUTADIENE CONVERTER HELPER Unavailable Unavailable Servage, L Genny BUTADIENE CONVERTER HELPER Unavailable Unavailable Servage, L Genny BUTADIENE CONVERTER HELPER Unavailable Unavailable Servage, L Genny BUTADIENE CONVERTER HELPER Unavailable Unavailable Servage, L Egnny BUTADIENE CONVERTER HELPER Unavailable Unavailable Servage, L Genny BUTADIENE CONVERTER HELPER Unavailable Unavailable Servage, L Genny BUTADIENE CONVERTER HELPER Unavailable Unavailable Servage, L Genny BUTADIENE CONVERTER HELPER Unavailable Unavailable Servage, L Genny BUTADIENE CONVERTER HELPER Unavailable Unavailable Servage, L Genny BUTADIENE CONVERTER HELPER Unavailable Unavailable Servage, L Genny BUTADIENE CONVERTER HELPER Unavailable Unavailable Servage, L Genny BUTADIENE CONVERTER HELPER Unavailable Unavailable Servage, L Genny BUTADIENE CONVERTER HELPER Unavailable Unavailable Servage, L Genny BUTADIENE CONVERTER HELPER Unavailable Unavailable Servage, L Genny BUTADIENE CONVERTER HELPER Unavailable Unavailable Servage, L Genny BUTADIENE CONVERTER HELPER Unavailable Unavailable Servage, L Genny BUTADIENE CONVERTER HELPER Unavailable Unavailable Servage, L Genny BUTADIENE CONVERTER HELPER Unavailable Unavailable Servage, L Genny BUTADIENE CONVERTER HELPER Unavailable Unavailable Servage, L Genny BUTADIENE CONVERTER HELPER Unavailable Unavailable Servage, L Genny BUTADIENE CONVERTER HELPER Unavailable Unavailable Servage, L Genny BUTADIENE CONVERTER HELPER Unavailable Unavailable Servage, L Genny BUTADIENE CONVERTER HELPER Unavailable Unavailable Servage, L Genny BUTADIENE CONVERTER HELPER Unavailable Unavailable Servage, L Genny BUTADIENE CONVERTER HELPER Unavailable Unavailable Servage, L Genny BUTADIENE CONVERTER HELPER Unavailable Unavailable Servage, L Genny BUTADIENE CONVERTER HELPER Unavailable Unavailable Servage, L Genny BUTADIENE CONVERTER HELPER Unavailable Unavailable Servage, L Genny BUTADIENE CONVERTER HELPER Unavailable Unavailable Servage, L Genny BUTADIENE CONVERTER HELPER Unavailable Unavailable Servage, L Genny BUTADIENE CONVERTER HELPER Unavailable Unavailable Servage, L Genny BUTADIENE CONVERTER HELPER Unavailable Unavailable Servage, L Genny BUTADIENE CONVERTER HELPER Unavailable Unavailable Servage, L Genny BUTADIENE CONVERTER HELPER Unavailable Unavailable Servage, L Genny BUTADIENE CONVERTER HELPER Unavailable Unavailable Servage, L Genny BUTADIENE CONVERTER HELPER Unavailable Unavailable Servage, L Genny BUTADIENE CONVERTER HELPER Unavailable Unavailable Servage, L Genny BUTADIENE CONVERTER HELPER Unavailable Unavailable Servage, L Genny BUTADIENE CONVERTER HELPER Unavailable Unavailable Servage, L Genny BUTADIENE CONVERTER HELPER Unavailable Unavailable Servage, L Genny BUTADIENE CONVERTER HELPER Unavailable Unavailable Stephanie Guan CARRIER WASHER CARRIER WASHER Unavailable Unavailable MCELHERAN, MIKALA PA Unavailable Unavailable [...] Vito Thorne MD Unavailable Unavailable LARNettie CABALLERO BUTADIENE CONVERTER HELPER Unavailable Unavailable LARADA, Nettie CINTRON BUTADIENE CONVERTER HELPER Unavailable Unavailable LAROCK, Nettie CINTRON BUTADIENE CONVERTER HELPER Unavailable Unavailable LAROCK, Nettie CINTRON BUTADIENE CONVERTER HELPER Unavailable Unavailable LAROCK, Nettie CINTRON BUTADIENE CONVERTER HELPER Unavailable Unavailable LAROCK, Nettie CINTRON BUTADIENE CONVERTER HELPER Unavailable Unavailable LAROCK, Nettie CINTRON BUTADIENE CONVERTER HELPER Unavailable Unavailable LAROCK, Nettie CINTRON BUTADIENE CONVERTER HELPER Unavailable Unavailable LAROCK, Nettie CINTRON BUTADIENE CONVERTER HELPER Unavailable Unavailable LAROCK, Nettie CINTRON BUTADIENE CONVERTER HELPER Unavailable Unavailable LAROCK, Nettie CINTRON BUTADIENE CONVERTER HELPER Unavailable Unavailable LAROCK, Nettie CINTRON BUTADIENE CONVERTER HELPER Unavailable Unavailable LAROCK, Nettie CINTRON BUTADIENE CONVERTER HELPER Unavailable Unavailable LAROCK, Nettie CINTRON BUTADIENE CONVERTER HELPER Unavailable Unavailable LAROCK, Nettie CINTRON BUTADIENE CONVERTER HELPER Unavailable Unavailable LAROCK, Nettie CINTRON BUTADIENE CONVERTER HELPER Unavailable Unavailable LAROCK, Nettie CINTRON BUTADIENE CONVERTER HELPER Unavailable Unavailable LAROCK, Nettie CINTRON BUTADIENE CONVERTER HELPER Unavailable Unavailable LAROCK, Nettie CINTRON BUTADIENE CONVERTER HELPER Unavailable Unavailable LAROCK, Nettie CINTRON BUTADIENE CONVERTER HELPER Unavailable Unavailable LAROCK, Nettie CINTRON BUTADIENE CONVERTER HELPER Unavailable Unavailable LAROCK, Nettie CINTRON BUTADIENE CONVERTER HELPER Unavailable Unavailable RING, K REMI PA Unavailable [...] is protected by Article 27-F of the [place] Public Health law. If you continue you may have access to information: Regarding HIV / AIDS; Provided by facilities licensed or operated by the [facility] Office of Mental Health; or Provided by the [facility] Office for People With Developmental Disabilities. If such information is present, then the following [facility] mandated warning applies: This information has been [...] law may result in a fine or mcfp sentence or both. A general authorization for the release of medical or other information is NOT sufficient authorization for further disc losure. Encounters Encounter Providers Location Date Indications Data Source(s ) Outpatient Attender: MIKALA TAVAREZ Physical Therapy 05/26/2021 11:00:00 AM EDT [facility] ([facility]) Unknown [address] [facility] [address] 04/20/2021 12:00:00 AM EDT [facility]) Unknown [address] [facility] [place] [address] 04/17/2021 12:00:00 AM EDT [facility]CW1 [facility]) Unknown [address] [facility] [place] [address] 03/29/2021 12:00:00 AM EDT [facility]CW1 [facility]) Unknown [address] [facility] [place] [address] 03/07/2021 12:00:00 AM EDT eCW1 ([facility]) Outpatient [address] [facility] [place] [address] 03/06/2021 12:00:00 AM EDT eCW1 ([facility]) Outpatient [address] [facility] [place] [address] 03/02/2021 12:00:00 AM EDT [facility]CW1 [facility]) Unknown [address] [facility] [place] [address] 03/02/2021 12:00:00 AM EDT eCW1 ([facility]) Emergency Attender: Vito Thorne MDConsultant: Genny Parmar 2021 06:41:00 AM EDT - 2021 07:42:00 AM EDT [facility] Patient discharged. [place] [address] [facility] [place] [address] 2021 12:00:00 AM EDT eCW1 ([facility]) Outpatient [address] [facility] [place] [address] 02/28/2021 12:00:00 AM EDT eCW1 ([facility]) [place] [address] [facility] [place] [address] 02/24/2021 12:00:00 AM EDT eCW1 ([facility]) [place] [address] [facility] [place] [address] 02/23/2021 12:00:00 AM EDT eCW1 ([facility]) [place] [address] [facility] [place] [address] 02/22/2021 12:00:00 AM EDT eCW1 ([facility]) [place] [address] [facility] [place] [address] 02/21/2021 12:00:00 AM EDT eCW1 ([facility]) [place] [address] [facility] [place] [address] 02/21/2021 12:00:00 AM EDT eCW1 ([facility]) Outpatient Attender: REMI Patterson Primary 02/19/2021 04:55:00 PM EDT [facility] ([facility]) Outpatient [address] [facility] [address] 02/15/2021 12:00:00 AM EDT eCW1 ([facility]) [place] [address] [facility] [place] [address] 01/26/2021 12:00:00 AM EDT eCW1 ([facility]) Outpatient Attender: Mandie TAVAREZ 01/24/20 03:23:07 PM EDT - 01/23/2021 04:07:31 PM EDT [facility] ([facility] ) Outpatient Attender: ABDULAZIZ JIMENEZ NP 12/25 12:05:53 PM EDT - 01/12/2021 12:58:07 PM EDT [facility] ([facility] ) Outpatient Attender: LEXI Guan CARRIER WASHER FP 05/12/2020 12:02:03 A M EDT [facility] Outpatient Attender: CARRIER WASHER Roge [facility]/04/2020 10:11:01 A M EDT [facility] Medications Medication Brand Name Start Date [...] {tablet} active Meloxicam 1 5 MG [facility] 5 % 2021 12:00:00 AM EDT [...] AM EDT active Fiber 625 MG eCW1 ([facility]) calcium polycarbophil 625 MG Oral Tablet [Fiber Tab] Fiber 6 25 MG Fiber 625 MG 02/28/2021 12:00:00 AM EDT active Fiber 625 MG eCW1 ([facility]) calcium polycarbophil 625 MG Oral Tablet [Fiber Tab] Fiber 6 25 MG Fiber 625 MG 02/28/2021 12:00:00 AM EDT active Fiber 625 MG eCW1 ([facility]) calcium polycarbophil 625 MG Oral Tablet [Fiber Tab] Fiber 6 25 MG Fiber 625 MG 02/28/2021 12:00:00 AM EDT active Fiber 625 MG eCW1 ([facility]) calcium polycarbophil 625 MG Oral Tablet [Fiber Tab] Fiber 6 25 MG Fiber 625 MG 02/28/2021 12:00:00 AM EDT active Fiber 625 MG eCW1 ([facility]) calcium polycarbophil 625 MG Oral Tablet [Fiber Tab] Fiber 6 25 MG Fiber 625 MG 02/28/2021 12:00:00 AM EDT active Fiber 625 MG eCW1 ([facility]) calcium polycarbophil 625 MG Oral Tablet [Fiber Tab] Fiber 6 25 MG Fiber 625 MG 02/28/2021 12:00:00 AM EDT active Fiber 625 MG eCW1 ([facility]) calcium polycarbophil 625 MG Oral Tablet [Fiber Tab] Fiber 6 25 MG Fiber 625 MG 02/28/2021 12:00:00 AM EDT active Fiber 625 MG eCW1 ([facility]) calcium polycarbophil 625 MG Oral Tablet [Fiber Tab] Fiber 6 25 MG Fiber 625 MG 02/28/2021 12:00:00 AM EDT active Fiber 625 MG eCW1 ([facility]) 625 mg 02/28/2021 12:00:00 AM EDT [...] EDT active Omeprazo le 40 MG eCW1 ([facility]) tizanidine 4 MG Oral Tablet TIZANIDINE [...] 12:00:00 AM EDT ORAL active [facility] ( [facility]) tizanidine 4 MG Oral Tablet Tizanidine HCL 02/19/2021 12:00:00 AM EDT ORAL active [facility] ([facility]) 10 mg 02/15/2021 12:00:00 AM EDT tablet 6 TAKE ONE TABLET BY MOUTH TWICE A DAY NEEDED FOR NAUSEA TAKE ONE TABLET BY MOUTH TWICE A DAY NEEDED FOR NAUSEA SOLD: 02/15/2021 Elan Jeter s Naproxen Sodium 220 MG Naproxen Sodium 220 MG 02/15/2021 12:00:00 AM E DT active Naproxen Sodium 220 MG eC W1 ([facility]) Naproxen Sodium 220 MG Naproxen Sodium 220 MG 02/15/2021 12:00:00 AM E DT active Naproxen Sodium 220 MG eC W1 ([facility]) Prochlorperazine 10 MG Oral Tablet Prochlorperazine Ma leate 10 MG Prochlorperazine Maleate 10 MG 02/15/2021 12:00:00 AM EDT 1.0 {tablet} active Prochlorperazine Maleate 10 MG e CW1 ([facility]) Naproxen Sodium 220 MG Naproxen Sodium 220 MG 02/15/2021 12:00:00 AM E DT active Naproxen Sodium 220 MG eC W1 ([facility]) Naproxen Sodium 220 MG Naproxen Sodium 220 MG 02/15/2021 12:00:00 AM E DT active Naproxen Sodium 220 MG eC W1 ([facility]) Naproxen Sodium 220 MG Naproxen Sodium 220 MG 02/15/2021 12:00:00 AM E DT active Naproxen Sodium 220 MG eC W1 ([facility]) Naproxen Sodium 220 MG Naproxen Sodium 220 MG 02/15/2021 12:00:00 AM E DT active Naproxen Sodium 220 MG eC W1 ([facility]) Prochlorperazine 10 MG Oral Tablet Prochlorperazine Ma leate 10 MG Prochlorperazine Maleate 10 MG 02/15/2021 12:00:00 AM EDT 1.0 {tablet} active Prochlorperazine Maleate 10 MG e CW1 ([facility]) 800 mg 01/23/2021 12:00:00 AM EDT tablet 30 TAKE ONE TABLET BY MOUTH THREE TIMES A DAY FOR 10 DAYS TAKE ONE TABLET BY MOUTH THREE TIMES A DAY FOR 10 DAYS SOLD: 01/24/2021 [facility] Cyclobenzaprine hydrochloride 10 MG Oral Tablet [...] type / Coverage type Policy ID Covered republican ID Covered republican's relationship to rangel Policy Rangel Plan Information Medicaid S [id number] S [id number] Managed Care - Community Plan [facility] P [id number] S [id number] Medicaid S [id number] S [id number] Managed Care - Community Plan [facility] P [id number] S [id number] Medicaid S [id number] S [id number] [facility] [id number] SP [id number] Managed Care - [facility] Community Plan P [id number] S [id number] Managed Care - Community Plan [facility] P [id number] S [id number] Managed Care - [facility] Community Plan P [id number] S [id number] [facility] Commercial Insurance Co. [id number] Self [id number] Medicaid Dental O [id number] S [id number] UNHC COMMUNITY PLAN [facility] [id number] SP [id number] [facility] [id number] SP [id number] UNHC COMMUNITY PLAN [facility] [id number] SP [id number] UNHC COMMUNITY PLAN XIX [id number] 18 [id number] [facility] MEDICAID [id number] SP [id number] U BC[employer] OF [place] WATN 306/806 [id number] ANSI-Medicaid [id number] MEDICAID [id number] SP [id number] [facility](MCAID) O [id number] S [id number] Managed Care BS O [id number] S [id number] Problems, Conditions, and Diagnoses Code Display Name Description Problem Type Effective Dates Data Source(s) Y9289 Other specified places as the place of o ccurrence of the external cause Other specified places as the place of occurrence of the external cause Diagnosis 2021 06:41:00 AM EDT [facility] [id number] Overexertion from strenuous movement or load, initial encounter Overexertion from strenuous movement or load, initial encounter Diagnosis 2021 06:41:00 AM EDT [facility] Z6835 Body mass index [BMI] 35.0-35.9, adult B hunter mass index [BMI] 35.0-35.9, adult Diagnosis 2021 06:41:00 AM EDT [facility] E669 Obesity, unspecified Obesity, unspecified Diagnosis 2021 06:41:00 AM EDT [facility] [id number] Strain of muscle, fascia and tendon of l ower back, initial encounter Strain of muscle, fascia and tendon of lower back, initial encounter Diagnosis 2021 06:41:00 AM EDT [facility] M545 Low back pain Low back pain Diagnosis 2021 06:41:00 AM EDT [facility] Z68.41 [id number] Body mass index (BMI) of 40.1 to 44.9 in adult Problem 03/06/2021 12:00:00 AM EDT [facility]CW1 ([facility]) F41.8 [id number] Anxiety about health Problem 02/28/2021 12:0 0:00 AM EDT eCW1 ([facility]) K58.2 [id number] Irritable bowel syndrome with dax th constipation and diarrhea Problem 02/28/2021 12:00:00 AM EDT eCW1 ([facility]) F45.8 [id number] Nervous stomach Problem 02/21/2021 12:00:00 AM EDT eCW1 [facility]) K29.70 7429400 Gastritis without bl eeding, unspecified chronicity, unspecified gastritis type Problem 02/21/2021 12:00:00 AM EDT eCW1 ([facility]) Z68.41 [id number] BMI 40.0-44.9, adult Problem 02/15/2021 12:0 0:00 AM EDT eCW1 ([facility]) Surgeries/Procedures Procedure Description Date Indications Data Source(s) OFFICE OUTPATIENT NEW 45 MINUTES 05/26/2021 12:00:00 A M EDT [facility] ([facility] ) OFFICE OUTPATIENT VISIT 15 MINUTES 02/19/2021 12:00:00 AM EDT [facility] ([facility]) Results ID Date Data Source [id number] 03/22/2021 04:52:00 PM EDT [facility] Name Value Range Interpretation Code Description Data Meche rce(s) Supporting Document(s) SARS coronavirus 2 RNA [Presence] in Res piratory specimen by CARA with probe detection NEGATIVE [facility] This lab was ordered by [facility] a nd reported by [facility]. ID Date Data Source [id number] 03/07/2021 03:15:00 PM EDT [facility] Name Value Range Interpretation Code Description Data Meche rce(s) Supporting Document(s) SARS coronavirus 2 RNA [Presence] in Res piratory specimen by CARA with probe detection NEGATIVE [facility] This lab was ordered by [facility] a nd reported by [facility]. ID Date Data Source [id number] 2021 06:41:00 AM EDT [facility] 1 OrderSheet [facility] Emergency Department [address] [place] [address] Phone #: ext- [phone] 06:39 Patient: [...] rce(s) Supporting Document(s) ID Date Data Source [id number] 2021 06:41:00 AM EDT [facility] 1 Medication Reconciliation Report [facility] Emergency Department [address] [place] [address] Phone #: [phone] 06:39 Patient: NA DEWEY Sex: M [...] Dispense 7patch. Refills: 0. Substitution permitted.Pharmacy - [facility] - [id number] ; [place], [place] [id number]. . -- Pablito Ambriz M.D. Name Value Range Interpretation Code Description Data [facility](s) Supporting Document(s) ID Date Data Source [id number] 2021 06:41:00 AM EDT [facility] 1 Medication Administration Record [facility] Emergency Department [address] [place] [address] Phone #: ext- [phone] 06:39 Patient: NA DEWEY Sex: M : 2000 Age: 21yWeight: 98.8 kgHeight/Length: 66 inBMI: 35.2ALLERGIES: None Date/Time Medication Administered Medication OrderedGiven LIDOCAINE PATCH Lidocaine Patch Topical (Patch 507:39 2021 Dose: 1 patch Transdermal %) 1 Patch (On for 12 hours, Sol Henenssy RN for 12 hours.) Name Value Range Interpretation Code Description Data Meche e(s) Supporting Document(s) ID Date Data Source [id number] 2021 06:41:00 AM EDT [facility] 1 General Instructions [facility] Emergency Department [address] [place] [address] Phone #: [phone]- [phone] 06:39 Patient: [...] until better.(PLEASE CONTINUE THE NAPROSYN OBTAINED FROM [facility] THE OTHER DAY ASPRESCRIBED;PLEASE FOLLOW UP [...] Dispense 7patch. Refills: 0. Substitution permitted.Pharmacy - [facility] - [address] ; [place], [place] [id number]. .Follow-up:Return to the emergency department as needed. [...] of care. ADDITIONAL INFORMATION 2 General Instructions [facility] Emergency Department [address] [place] [address] Phone #: ext- [phone] 06:39 Patient: NA DEWEY Sex: M [...] cause the pain. Mechanical 3 General Instructions [facility] Emergency Department [address] [place] [address] Phone #: ext- [phone] 06:39 Patient: [...] to protect your skin. 4 General Instructions [facility] Emergency Department [address] [place] [address] Phone #: ext- [phone] 06:39 Patient: [...] or are takingother medicines. You may use [id number] medicine as directed on the bottle to [...] bowel or bladder control 5 General Instructions [facility] Emergency Department [address] [place] [address] Phone #: ext- [phone] 06:39 Patient: NA DEWEY Sex: M : 2000 Age: 21yWhen to seek medical adviceCall your healthcare provider right away if any of these occur: Pain becomes worse or spreads to your legs Weakness or numbness in one or both legs Numbness in the groin or genital area [id number] [employer]. [address] [place] [address]. All rights reserved. This information is not [...] rce(s) Supporting Document(s) ID Date Data Source [id number] 2021 06:41:00 AM EDT [facility] 1 Clinical Report - Nurses [facility] Emergency Department [address] [place] [address] Phone #: [phone]- [phone] 06:39 Patient: NA DEWEY Sex: M : 2000 Age: 21yTRIAGEArrived by private vehicle. Historian: patient.Triage t manjit: 06:40 2021.Chief Complaint: BACK PAIN.Onset. (2 weeks ago). 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 (Saturday ([facility])Took Naproxen last yesterday at 8pm). --06:42 03/01/21 Lara Noonan R.N.Acuity: LEVEL 4.SEPSIS SCREEN: SEPSIS SCREEN NEGATIVE. No suspected or confirmed signs of infection present.--06:44 03/01/21 Lara Noonan R.N.06:43 03/01/21. BP: 142/90. MAP: 107. HR: 81. RR: 16. O2 saturation: 96%. Temp: 97.5 F. Pain levelnow: 9/10. 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 --06:45 7/7/21 Lara [...] known surgeries. 2 Clinical Report - Nurses [facility] Emergency Department [address] [place] [address] Phone #: ext- [phone] 06:39 [id number] Sex: Suzy : 2000 Age: 21y History [...] Patient verbalized understanding. Written instructions provided in Bhutanese. The patient was discharged by the physician. He was discharged home and accompanied by parent. He left ambulatory and via private vehicle. Parent driving. --08:10 03/01/21 Sol Treviño, MITCHELL 07:40 03/01/21. BP: 140/88. MAP: 105. HR: 78. RR: 16. O2 saturation: 99%. Temp: deferred. Pain level now: 04/04. --08:10 03/01/21 Sol Treviño, MITCHELL 3 Clinical Report - Nurses [facility] Emergency Department [address] [place] [address] Phone #: ext- [phone] 06:39 Patient: NA DEWEY Sex: M : 2000 Age: 21y Departure time: 07:42 2021. 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 3 Clinical Report - Physicians/Mid Levels [facility] Emergency Department [address] [place] [address] Phone #: [phone]- [phone] 06:39 [facility]: [id number] Sex: M : 2000 Age: 21yINSTRUCTIONS Apply [...] better. (PLEASE CONTINUE THE NAPROSYN OBTAINED FROM [facility] THE OTHER DAY PRESCRIBED; PLEASE FOLLOW [...] patch. Refills: 0. Substitution permitted. Pharmacy - [id number] - [id number] ; [place], [place] [id number]. Phone: . Follow-up: Return to the emergency [...] Never Smoker completed Never S moker [facility] ([facility] Smoking 04/13/2021 12:00:00 AM EDT Never Smoker completed Never S moker eCW1 ([facility]) Smoking 03/06/2021 12:00:00 AM EDT Never Smoker completed Never S moker eCW1 ([facility]) Smoking 03/06/2021 12:00:00 AM EDT Never Smoker completed Never S moker eCW1 ([facility]) Smoking 03/06/2021 12:00:00 AM EDT Never Smoker completed Never S moker eCW1 ([facility]) Smoking 03/06/2021 12:00:00 AM EDT Never Smoker completed Never S moker eCW1 ([facility]) Smoking 03/06/2021 12:00:00 AM EDT Never Smoker completed Never S moker eCW1 ([facility]) Smoking 03/06/2021 12:00:00 AM EDT Never Smoker completed Never S moker eCW1 ([facility]) Smoking 03/02/2021 12:00:00 AM EDT Never Smoker completed Never S moker eCW1 ([facility]) Smoking 02/26/2021 12:00:00 AM EDT Never Smoker completed Never S moker eCW1 ([facility]) Smoking 02/21/2021 12:00:00 AM EDT Never Smoker completed Never S moker eCW1 ([facility]) Smoking 02/21/2021 12:00:00 AM EDT Never Smoker completed Never S moker eCW1 ([facility]) Smoking 02/21/2021 12:00:00 AM EDT Never Smoker completed Never S moker eCW1 ([facility]) Smoking 02/21/2021 12:00:00 AM EDT Never Smoker completed Never S moker eCW1 ([facility]) Smoking 02/15/2021 12:00:00 AM EDT Never Smoker completed Never S moker eCW1 ([facility]) Smoking 01/26/2021 12:00:00 AM EDT Never Smoker completed Never S moker eCW1 ([facility]) Vital Signs ID Date Data Source UNK Name Value Range Interpretation Code Description Data Source(s) Body temperature 97.3 [degF] 97.3 [degF] MEDENT ([facility] ) Body mass index (BMI) [Ratio] 37.9 kg/m2 37.9 k g/m2 MEDENT ([facility] ) Body height 66 [in_i] 66 [in_i] MEDENT ([facility] ) 5'6" Body weight 235.00 [lb_av] 235.00 [lb_av] MEDEN T ([facility] ) Body weight 214.0 [lb_av] 214.0 [lb_av] eCW1 ([facility]) Body height [in_i] eCW1 ([facility]) Body mass index (BMI) [Ratio] 41.79 kg/m2 41.79 kg/m2 eCW1 ([facility]) Heart rate 90 /min 90 /min eCW1 ([facility]) Respiratory rate 18 /min 18 /min eCW1 ([facility]) Body temperature 98.7 [degF] 98.7 [degF] eCW1 ( [facility]) Systolic blood pressure 120 mm[Hg] 120 mm[Hg] e CW1 ([facility]) Diastolic blood pressure 80 mm[Hg] 80 mm[Hg] eCW1 ([facility]) Body weight 215.6 [lb_av] 215.6 [lb_av] eCW1 ([facility]) Body height [in_i] eCW1 ([facility]) Body mass index (BMI) [Ratio] 42.10 kg/m2 42.10 kg/m2 eCW1 ([facility]) Heart rate 100 /min 100 /min eCW1 ([facility]) Respiratory rate 18 /min 18 /min eCW1 ([facility]) Body temperature 98.4 [degF] 98.4 [degF] eCW1 ( [facility]) Systolic blood pressure 120 mm[Hg] 120 mm[Hg] e CW1 ([facility]) Diastolic blood pressure 80 mm[Hg] 80 mm[Hg] eCW1 ([facility]) Body weight 216.2 [lb_av] 216.2 [lb_av] eCW1 ([facility]) Body height [in_i] eCW1 ([facility]) Body mass index (BMI) [Ratio] 42.22 kg/m2 42.22 kg/m2 eCW1 ([facility]) Heart rate 90 /min 90 /min eCW1 ([facility]) Respiratory rate 18 /min 18 /min eCW1 ([facility]) Body temperature 98 [degF] 98 [degF] eCW1 ([facility]) Systolic blood pressure 130 mm[Hg] 130 mm[Hg] e CW1 ([facility]) Diastolic blood pressure 60 mm[Hg] 60 mm[Hg] eCW1 ([facility]) Diastolic blood pressure 80 mm[Hg] 80 mm[Hg] eCW1 ([facility]) Body weight 215.0 [lb_av] 215.0 [lb_av] eCW1 ([facility]) Body height [in_i] eCW1 ([facility]) Body mass index (BMI) [Ratio] 41.98 kg/m2 41.98 kg/m2 eCW1 ([facility]) Heart rate 88 /min 88 /min eCW1 ([facility]) Respiratory rate 18 /min 18 /min eCW1 ([facility]) Body temperature 98.7 [degF] 98.7 [degF] eCW1 ( [facility]) Systolic blood pressure 118 mm[Hg] 118 mm[Hg] e CW1 ([facility]) Diastolic blood pressure 91 mm[Hg] 91 mm[Hg] MEDENT ([facility] [place], [facility]) Systolic blood pressure 131 mm[Hg] 131 mm[Hg] M EDENT ([facility] [place], [facility]) Respiratory rate 14 /min 14 /min MEDENT ( [facility] [place], [facility]) Heart rate 89 /min 89 /min MEDENT ([facility], [facility]) Oxygen saturation in Arterial blood by Pulse oximetry 98 % 98 % MEDENT ([facility] [place], [facility]) Body weight 220.00 [lb_av] 220.00 [lb_av] MEDEN T ([facility], [facility]) Body temperature 97.8 [degF] 97.8 [degF] MEDENT ([facility], [facility]) Body mass index (BMI) [Ratio] 34.5 kg/m2 34.5 k g/m2 MEDENT ([facility], [facility]) Body height 67 [in_i] 67 [in_i] MEDENT ([facility], [facility]) 5'7" Body weight 220.8 [lb_av] 220.8 [lb_av] eCW1 ([facility]) Body temperature 98.6 [degF] 98.6 [degF] eCW1 ( [facility]) Systolic blood pressure 128 mm[Hg] 128 mm[Hg] e CW1 ([facility]) Body height [in_i] eCW1 ([facility]) Diastolic blood pressure 80 mm[Hg] 80 mm[Hg] eCW1 ([facility]) Body mass index (BMI) [Ratio] 43.12 kg/m2 43.12 kg/m2 eCW1 ([facility]) Heart rate 90 /min 90 /min eCW1 ([facility]) Respiratory rate 18 /min 18 /min eCW1 ([facility]) Patient Treatment Plan of Care Planned Activity Planned Date Details Description Data Source (s) meloxicam 15 MG Oral Tablet 03/02/2021 12:00:00 AM EDT eCW1 ([facility]) Omeprazole 40 MG Delayed Release Oral Capsule 02/21/2021 12:00:00 A M EDT eCW1 ([facility]) Naproxen Sodium 220 MG 02/15/2021 12:00:00 AM EDT eCW1 ([facility]) Prochlorperazine 10 MG Oral Tablet 02/15/2021 12:00:00 AM EDT eCW1 ([facility])
[2021-06-27] MEDS ORDERED: NS 1,000 ML IV ONE (17:15)
[2021-06-27] MEDS ORDERED: ONDANSETRON 4MG/2ML VIAL IV ONE (17:15)
[2021-06-27] MEDS ORDERED: ISOVUE-370 76% 100ML VIAL As Ordered ONE (17:34)
--- NOTE | 2021-06-27 18:22 | REPVR ---
PROCEDURE INFORMATION: Exam: CT Abdomen And Pelvis With Contrast Exam date and time: 06/27/2021 5:51 PM Age: 21 years old Clinical indication: Abdominal pain; Additional info: Abdominal pain flank right/diarrhea/vomiting TECHNIQUE: Imaging protocol: Computed tomography of the abdomen and pelvis with contrast. Radiation optimization: All CT scans at this facility use at least one of these dose optimization techniques: automated exposure control; mA and/or kV adjustment per patient size (includes targeted exams where dose is matched to clinical indication); or iterative reconstruction. Contrast material: ISOVUE 370; Contrast volume: 100 ml; Contrast route: INTRAVENOUS (IV); COMPARISON: CT ABD/PEL W/IV CONTRAST ONLY 02/24/2021 8:23 PM FINDINGS: Liver: There is a diffuse decrease in hepatic parenchymal density, consistent with steatosis. Gallbladder and bile ducts: Normal. No calcified stones. No ductal dilation. Pancreas: Normal. No ductal dilation. Spleen: Normal. No splenomegaly. Adrenal glands: Normal. No mass. Kidneys and ureters: Normal. No hydronephrosis. Stomach and bowel: Unremarkable. No obstruction. No mucosal thickening. Appendix: No evidence of appendicitis. Intraperitoneal space: Unremarkable. No free air. No significant fluid collection. Vasculature: Unremarkable. No abdominal aortic aneurysm. Lymph nodes: Unremarkable. No enlarged lymph nodes. Urinary bladder: Unremarkable as visualized. Reproductive: Unremarkable as visualized. Bones/joints: Unremarkable. No acute fracture. Soft tissues: Small umbilical hernia. IMPRESSION: 1. There is a diffuse decrease in hepatic parenchymal density, consistent with steatosis. 2. No acute findings. Electronically signed by: Jed Maurice On 06/27/2021 18:21:17 PM
[2021-06-27] MEDS ORDERED: ZOFR4TAB16 PO (18:44)
[2021-06-27 20:28] VITALS: BP 130/82
== END 2021-06-27 20:33 | disposition home or self-care (01) ==
LOC: M ED 13:08
DX: R10.9 Unspecified abdominal pain (principal); R19.7 Diarrhea, unspecified; Z91.030 Bee allergy status
CPT/HCPCS: 74177; 80048; 80076; 81001; 83690; 85025; 87505; 96361; 96374; 99284; J2405; Q9967

== ENCOUNTER 2021-07-30 14:26 | Emergency (ER) | payer OTHER ==
[~2021-07-30] VITALS: Ht 167.6 cm; Wt 116.3 kg
[~2021-07-30 14:26] MED LIST changes: +ACET-683 PO; +ZOFR4TAB16 PO
--- OUTSIDE RECORDS SUMMARY | 2021-07-30 14:33 | CCD | Continuity of Care Document ---
Author Author Rodrick CARRERO CHIN STRAP CUTTER Organization Unknown Address [address] [place] [address] Phone [phone] Care Team Providers Care Forging Machine Hand Name Role Phone Genny Pearson HENRY AUTM [phone] Problems Description No Information Available Social History Type Date Description Comments Sex Unknown ETOH Use Denies alcohol use Tobacco Use Start: Unknown Patient has never smoked Tobacco Use Start: Unknown The Patient Has Never Vaped Smoking Status Reviewed: 02/19/21 The Patient Has Never Vaped Allergies and adverse reactions Active Allergies Criticality Reaction | Severity Comments Date NKDA Unable to assess criticality 06/15/2019 Bee Sting Unable to assess criticality 06/15/2019 Medications Active Medications SIG Qnty Indications Ordering Provide r Date Naproxen 500mg Tablets DR by mouth twice a day as needed 20tabs S39.012A Benjamin Gaytan JR., M.D. 08/2020 Tizanidine HCL 4mg Tablets take 1 tab PO q6-8 hr prn for muscle spasms 14tabs S39.012A Benjamin Gaytan JR., M.D. 07/26/2021 Epipen 2-Delta 0.3mg/0 .3ML Solution Auto-Inject intramuscular auto-injection to the outer thigh as dir ected for anaphylaxis Unknown Tylenol 12:00 pm today Unknown History Medications Naproxen 500mg Tablets DR 1 tab by mouth q12 hours as needed for pain 14tabs S39.012A Benjamin Gaytan JR., M.D. 02/19/2021 - 02/24/2021 Tizanidine HCL 4mg Tablets 1 tab by mouth every 8 hours as needed for pain 14tabs S39.012A Benjamin albrecht JR., M.D. 02/19/2021 - 02/22/2021 Immunizations Description No Information Available Vital Signs Date Vital Result Comment 07/26/2021 5:03pm BP Systolic 131 mmHg BP Diastolic 85 mmHg Heart Rate 115 /min Respiratory Rate 16 /min O2 % BldC Oximetry 99 % Body Temperature 98.9 F Weight 250.00 lb Height 66 inches 5'6" BMI (Body Mass Index) 40.3 kg/m2 Pain Level 10 02/19/2021 5:06pm BP Systolic 131 mmHg BP Diastolic 91 mmHg Heart Rate 89 /min Respiratory Rate 14 /min O2 % BldC Oximetry 98 % Body Temperature 97.8 F Weight 220.00 lb Height 67 inches 5'7" BMI (Body Mass Index) 34.5 kg/m2 Pain Level 6 Results Description No Information Available Procedures Date Code Description Status 02/19/2021 36904 Office/Outpatient Established Lo w MDM 20-29 Min Completed Medical Devices Description No Information Available Encounters Type Date Location Provider Dx Diagnosis Office Visit 02/19/2021 4:55p Main Office CORBY Monroy S39.01 2A Strain of muscle, fascia and tendon of lower back, init Assessments Date Code Description Provider 07/26/2021 S39.012A Strain of muscle, fa scia and tendon of lower back, initial encounter Michelle Carrero NP 02/19/2021 S39.012A Strain of muscle, fa scia and tendon of lower back, initial encounter COR[facility] Monroy Plan of Treatment 07/26/2021 - Michelle Carrero NP* S39.012A Strain of muscle, fascia and tendon of lower back, initial encounter* New Medication:* Naproxen 500 mg - by mouth twice a day as needed * Tizanidine HCL 4 mg - take 1 tab PO q6-8 hr prn for muscle spasms Functional Status Description No Information Available Mental Status Description No Information Available Referrals Description No Information Available
--- OUTSIDE RECORDS SUMMARY | 2021-07-30 14:33 | CCD | Continuity of Care Document ---
Author Author Rodrick TITUS Organization Unknown Address [address] [place] [address] Phone [phone] Problems Description No Information Available Social History Type Date Description Comments Sex Unknown ETOH Use Denies alcohol use Tobacco Use Start: Unknown Patient has never smoked Recreational Drug Use Denies Drug Use Allergies and adverse reactions Active Allergies Criticality Reaction | Severity Comments Date Bee Sting Unable to assess criticality 06/29/2021 Medications Description No Active Medications Immunizations CPT Code Status Date Vaccine Lot # [id number] Given 06/29/2021 Influenza (>= 6 Months) P.F. Vaccine [id number] Vital Signs Date Vital Result Comment 06/29/2021 3:08pm BP Systolic 122 mmHg BP Diastolic 82 mmHg Heart Rate 100 /min Body Temperature 97.8 F Respiratory Rate 16 /min O2 % BldC Oximetry 98 % Weight 242.12 lb Weight 109.828 kg Height 66 inches 5'6" BMI (Body Mass Index) 39.1 kg/m2 BSA (Body Surface Area) 2.17 m2 Results Description No Information Available Procedures Date Code Description Status 06/29/2021 51868 Admin Patient Focused Health Ris k Assessment Instrument Completed 06/29/2021 08455 Brief Emotional/Beha v Assessment W/ Scoring Doc Per Standard Inst Completed Medical Devices Description No Information Available Encounters Description No Information Available Assessments Description No Information Available Plan of Treatment Future Appointment(s):* 08/24/2021 3:00 pm - [facility] Stewart at [facility] 06/29/2021 - CORBY Stewart* All * New Medication:* No Active Medications - * New Labs:* TSH Highly Sensitive, Ordered: 06/29/21 * CBC W/Automated Diff, Ordered: 06/29/21 * Comprehensive Metabolic Panel, Ordered: 06/29/21 * Hgba1c, Ordered: 06/29/21 * Cve Panel, Ordered: 06/29/21 Functional Status Description No Information Available Mental Status Description No Information Available Referrals Description No Information Available
--- OUTSIDE RECORDS SUMMARY | 2021-07-30 14:33 | CCD | Continuity of Care Document ---
Author Author Rodrick TITUS Organization Unknown Address [address] [place] [address] Phone [phone] Problems Description No Information Available Social History [...] CPT Code Status Date Vaccine Lot # [id number] Given 06/29/2021 Influenza (>= 6 Months) P.F. [...] Available Procedures Date Code Description Status 06/29/2021 22857 Admin Patient Focused Health Ris k Assessment Instrument Completed 06/29/2021 26138 Brief Emotional/Beha v Assessment W/ Scoring Doc Per Standard Inst Completed Medical Devices Description No Information Available Encounters Description No Information Available Assessments Description No Information Available Plan of Treatment Future Appointment(s):* 08/24/2021 3:00 pm - CORBY Stewart at [facility] 06/29/2021 - CORBY Stewart* All * New [...]
--- OUTSIDE RECORDS SUMMARY | 2021-07-30 14:33 | CCD | Continuity of Care Document ---
Author Author Rodrick TITUS Organization Unknown Address [address] [place] [address] Phone [phone] Care Team Providers Care Tin Assorter Name Role Phone [facility] Gastroenterology AUTM [phone] Kimberly Titus AUTM [phone] Problems Description No Information Available Social History Type Date Description Comments Sex Unknown ETOH Use Denies alcohol use Tobacco Use Start: Unknown Patient has never smoked Recreational Drug Use Denies Drug Use Allergies and adverse reactions Active Allergies Criticality Reaction | Severity Comments Date Bee Sting Unable to assess criticality 06/29/2021 Medications Active Medications SIG Qnty Indications Ordering Provide r Date Sertraline HCL 50mg Tablets 1 by mouth every day 90tabs [facility] Stewart 06/29/2021 History Medications No Active Medications Unknown 11/2020 - 06/29/2021 Immunizations CPT Code Status Date Vaccine Lot # [id number] Given 06/29/2021 Influenza (>= 6 Months) P.F. Vaccine [id number] Vital Signs Date Vital Result Comment 07/18/2021 8:17am BP Systolic 128 mmHg BP Diastolic 84 mmHg Heart Rate 104 /min Body Temperature 97.3 F Respiratory Rate 16 /min O2 % BldC Oximetry 98 % Weight 252.00 lb Weight 114.307 kg Height 66 inches 5'6" BMI (Body Mass Index) 40.7 kg/m2 BSA (Body Surface Area) 2.21 m2 06/29/2021 3:08pm BP Systolic 122 mmHg BP Diastolic 82 mmHg Heart Rate 100 /min Body Temperature 97.8 F Respiratory Rate 16 /min O2 % BldC Oximetry 98 % Weight 242.12 lb Weight 109.828 kg Height 66 inches 5'6" BMI (Body Mass Index) 39.1 kg/m2 BSA (Body Surface Area) 2.17 m2 Results Test Acquired Date Facility Test Result H/L Range Note Laboratory test finding 07/18/2021 [facility] TSH Highly Sensitive 2.81 uIU/mL 0.47 - 5.01 1 CBC W/Automated Diff 07/18/2021 [facility] CBC W/Automated Diff (SEE NOTE) 2 WBC 7.4 10^3/uL 4.2 - 11.0 RBC 5.14 10^6/uL 4.50 - 6.30 Hemoglobin 15.6 g/dL 14.0 - 16.0 Hematocrit 45.0 % 41.0 - 51.0 MCV 87.5 fL 80.0 - 94.0 MCH 30.4 pg 27.0 - 34.0 MCHC 34.7 g/dL 31.0 - 36.0 RDW 12.7 % 11.5 - 14.8 Platelets 308 10^3/uL 150 - 450 MPV 9.5 fL 7.4 - 10.4 Neut 53.9 % 37.0 - 80.0 Lymph 31.0 % 25.0 - 40.0 Granite 12.6 % High 3.0 - 8.0 Eos 1.0 % 0.0 - 7.0 Baso 0.8 % 0.0 - 2.0 %Ig 0.7 % High 0.0 - 0.0 %NRBC 0.0 % 0.0 - 0.0 #Neut 3.97 10^3/uL 2.00 - 6.90 #Lymph 2.28 10^3/uL 0.60 - 3.40 #Granite 0.93 10^3/uL High 0.00 - 0.90 #Eos 0.07 10^3/uL 0.00 - 0.70 #Baso 0.06 10^3/uL 0.00 - 0.20 #Ig 0.05 10^3/uL 0.00 - 0.10 #NRBC 0.00 10^3/uL 0.00 - 0.00 Manual Diff NOT INDICATED RBC Morph NOT INDICATED Comprehensive Metabolic Panel 07/18/[address] [facility] Comprehensive Metabo (SEE NOTE) 3 Sodium 138 mEq/L 134 - 153 Potassium 4.4 mEq/L 3.6 - 5.0 Chloride 102 mEq/L 98 - 107 Co2 25 mEq/L 22 - 30 Glucose 102 mg/dL High 70 - 99 BUN 18 mg/dL 7 - 21 Creatinine 0.8 mg/dL 0.7 - 1.5 BUN/Creat 23 8 - 27 Total Protein 7.2 g/dL 6.3 - 8.2 Albumin 4.6 g/dL 3.9 - 5.0 Globulin 2.6 GM/DL 2.4 - 3.2 A/G Ratio 1.8 0.8 - 2.0 Calcium 9.4 mg/dL 8.4 - 10.2 Total Bili <0.7 mg/dL 0.2 - 1.3 Alkaline Phos 205 U/L High 38 - 126 Sgot/Ast 18 U/L 5 - 40 SGPT/Alt 24 U/L 7 - 56 Anion Gap 11.0 mmol/L 8.0 - 16.0 Age 21 yrs Non-Aa GFR >60 mL/min Afr Amer GFR >60 mL/min 4 Laboratory test finding 07/18/2021 [facility] Hgba1c 5.2 % 4.4 - 6.1 5 Cve Panel 07/18/2021 [facility] Cve Panel (SEE NOTE) 6 Cholesterol 141 mg/dL 131 - 200 Triglycerides 56 mg/dL 35 - 160 HDL 48 mg/dL 29 - 86 LDL 83 mg/dL 65 - 175 Risk Factor 2.9 Low 3.4 - 4.9 LDL/HDL 1.73 1.00 - 3.55 7 Laboratory test finding 07/18/2021 [facility] Vitamin B12 Serum 260 pg/mL 232 - 1245 1 Is patient fasting? N 2 COMPLETE BLOOD COUNT 3 COMPREHENSIVE METABOLIC PANE L 4 Male GFR Interprentation 20-49 yrs >60 mL/min Normal 50-59 yrs >56 mL/min Normal 60-69 yrs >49 mL/min Normal 70-79yrs >42 mL/min Normal 80 and above >35 mL/min Normal Female GFR Interpretation 20-39 yrs >60 mL/min Normal 40-49 yrs >58 mL/min Normal 50-59 yrs >51 mL/min Normal 60-69 yrs >45 mL/min Normal 70-79 yrs >39 mL/min Normal 80 and above >32 mL/min Normal 5 {A1] {HB] 6 LIPID PANEL 7 CVE RISK CHOL/HDL LDL/HDL MEN: 08/27 AVERAGE 3.43 1.00 AVERAGE 4.97 3.55 2X AVERAGE 9.55 6.25 3X AVERAGE 23.99 7.99 WOMEN: 1/2 AVERAGE 3.27 1.47 AVERAGE 4.44 3.22 2X AVERAGE 7.05 5.03 3X AVERAGE 11.04 6.14 Procedures Date Code Description Status 07/18/2021 98324 Office/Outpatient Established Lo w MDM 20-29 Min Completed 06/29/2021 23609 Office/Outpatient New Low MDM 30 -44 Minutes Completed 06/29/2021 91418 Admin Patient Focused Health Ris k Assessment Instrument Completed 06/29/2021 90568 Brief Emotional/Beha v Assessment W/ Scoring Doc Per Standard Inst Completed Medical Devices Description No Information Available Encounters Description No Information Available Assessments Date Code Description Provider 07/18/2021 R20.9 Sensory disorder CORBY Stewart 07/18/2021 R19.7 Diarrhea, unspecified CORBY Vo 07/18/2021 R10.84 Generalized abdominal pain CORBY Hogan 07/18/2021 M54.50 Low back pain, unspecified CORBY Hogan 06/29/2021 R10.84 Generalized abdominal pain CORBY Hogan 06/29/2021 R19.7 Diarrhea, unspecified CORBY Vo 06/29/2021 M54.50 Low back pain, unspecified CORBY Hogan 06/29/2021 F41.9 Anxiety disorder, unspecified CORBY Elena Plan of Treatment Future Appointment(s):* 08/24/2021 3:00 pm - CORBY Stewart at [facility] 07/18/2021 - CORBY Stewart* R20.9 Sensory disorder* Recommendations:* Physical exam is normal. We will update blood work. RTC in 2 weeks if symptoms do not improved. * R19.7 Diarrhea, unspecified* Recommendations:* This has since improved. * R10.84 Generalized abdominal pain* Recommendations:* This has since improved. * M54.50 Low back pain, unspecified* Recommendations:* He is following with [facility] orthopedics. I have encouraged him to continue to do the exercises he was taught. Discussed red flag symptoms and reasons to go to ER. He has an upcoming appointment with orthopedics. He should keep this appointment. * All * Recommendations:* I will attempt to obtain old records. Functional Status Description No Information Available Mental Status Description No Information Available Referrals Refer to Reason for Referral Status Appt Date [facility] Gastroenterology 21 year old male with abdomi nal pain, diarrhea and vomiting that has been ongoing for many months. CT abdomen shows hepatic steatosis and no other abnormalities. Please evaluate and treat. Thank you. Sent [id number] [id number] [phone]
--- OUTSIDE RECORDS SUMMARY | 2021-07-30 14:33 | CCD | Continuity of Care Document ---
Author Author Rodrick TITUS Organization Unknown Address [address] [place] [address] Phone [phone] Care Team Providers Care Casting House Worker Name Role Phone [facility] Gastroenterology AUTM [phone] Problems Description No Information Available Social History [...] CPT Code Status Date Vaccine Lot # [id number] Given 06/29/2021 Influenza (>= 6 Months) P.F. [...] H/L Range Note Laboratory test finding 07/18/2021 [facility] TSH Highly Sensitive <pending> Laboratory test finding 07/18/2021 [facility] Hgba1c <pending> Laboratory test finding 07/18/2021 [facility] Vitamin B12 Serum <pending> Procedures Date Code Description Status 06/29/2021 89595 Office/Outpatient New Low MDM 30 -44 Minutes Completed 06/29/2021 47151 Admin Patient Focused Health Ris k Assessment Instrument Completed 06/29/2021 48783 Brief Emotional/Beha v Assessment W/ Scoring Doc Per Standard Inst Completed Medical Devices Description No Information Available Encounters Description No Information Available Assessments Date Code Description Provider 07/18/2021 R20.9 Sensory disorder CORBY Stewart 07/18/2021 R19.7 Diarrhea, unspecified CORBY Vo 07/18/2021 R10.84 Generalized abdominal pain CORBY Hogan 07/18/2021 Z13.1 Encounter for screening for diab etes mellitus CORBY Stewart 07/18/2021 Z13.220 Encounter for screening for lipo id disorders CORBY Stewart 06/29/2021 R10.84 Generalized abdominal pain CORBY Hogan 06/29/2021 R19.7 Diarrhea, unspecified CORBY Vo 06/29/2021 M54.50 Low back pain, unspecified CORBY Hogan 06/29/2021 F41.9 Anxiety disorder, unspecified CORBY Elena Plan of Treatment Future Appointment(s):* 08/24/2021 3:00 pm - CORBY Stewart at [facility] 07/18/2021 - CORBY Stewart* R20.9 Sensory disorder * R19.7 Diarrhea, unspecified * R10.84 Generalized abdominal pain * Z13.1 Encounter for screening for diabetes mellitus * Z13.220 Encounter for screening for lipoid disorders Functional Status Description No Information Available Mental Status Description No Information Available Referrals Refer to Reason for Referral Status Appt Date [facility] Gastroenterology 21 year old male with abdomi nal pain, diarrhea and vomiting that has been ongoing for many months. CT abdomen shows hepatic steatosis and no other abnormalities. Please evaluate and treat. Thank you. Sent [id number] [id number] [phone]
--- OUTSIDE RECORDS SUMMARY | 2021-07-30 14:33 | CCD ---
Continuity of Care Document (CCD) Created on: 07/26/2021 Antonio Jeanraiza External Reference #: [id number] : 2000 Sex: Male Author Author Rodrick CARRERO [employer] Organization Unknown Address [address] [place] [address] Phone [phone] Care Team Providers Care Supervisor Computer Operations Name Role Phone Genny Pearson HENRY AUTM [phone] Problems Description No Information Available Social History [...] Information Available Procedures Date Code Description Status 07/26/2021 77798 Office/Outpatient Established Lo w MDM 20-29 Min Completed 02/19/2021 14904 Office/Outpatient Established Lo w MDM 20-29 Min Completed Medical Devices Description No Information Available Encounters Type Date Location Provider Dx Diagnosis Office Visit 07/26/2021 1:30p Main Office Michelle Carrero NP S39. 012A Strain of muscle, fascia and tendon of lower back, init Office Visit 02/19/2021 4:55p Main Office CORBY [...] PO q6-8 hr prn for muscle spasms * Comments:* reviewed conservative management, adivised RICE, alternate with heattrial NSAIDs, take with foodtizanidine PRN for muscle spasms, major side effects revieweddiscussed red flag sx that warrant re-evaluation or trip to the ERf/u PRN or with PCPpatient v/u & agrees to plan Functional Status Description No Information Available Mental Status Description No Information Available Referrals Description No Information Available
--- OUTSIDE RECORDS SUMMARY | 2021-07-30 14:33 | CCD ---
Continuity of Care Document (CCD) Created on: 06/29/2021 Rodrick Alvarez External Reference #: [id number] : 2000 Sex: Male Author Author Rodrick TITUS Organization Unknown Address [address] [place] [address] Phone [phone] Problems Description No Information Available Social History [...] CPT Code Status Date Vaccine Lot # [id number] Given 06/29/2021 Influenza (>= 6 Months) P.F. [...] Available Procedures Date Code Description Status 06/29/2021 73116 Admin Patient Focused Health Ris k Assessment Instrument Completed 06/29/2021 28812 Brief Emotional/Beha v Assessment W/ Scoring Doc Per Standard Inst Completed Medical Devices Description No Information Available Encounters Description No Information Available Assessments Description No Information Available Plan of Treatment Future Appointment(s):* 08/24/2021 3:00 pm - CORBY Stewart at [facility] 06/29/2021 - CORBY Stewart* All * [...]
--- OUTSIDE RECORDS SUMMARY | 2021-07-30 14:33 | CCD | Continuity of Care Document ---
Author Author Rodrick [facility] Organization Unknown Address [address] [facility], [facility] e [address] [place] [address] Phone [phone] Care Team Providers Care Custodial Supervisor Name Role Phone Kyle Lara MD AUTM Unavailable Genny Pearson AUTM [phone] Problems Description No Information Available Social History Type Date Description Comments Sex Unknown Allergies and adverse reactions Description No Known Drug Allergies Medications Description No Active Medications Immunizations Description No Information Available Vital Signs Date Vital Result Comment 05/26/2021 11:24am Body Temperature 97.3 F Height 66 inches 5'6" Weight 235.00 lb BMI (Body Mass Index) 37.9 kg/m2 Results Test Acquired Date Facility Test Result H/L Range Note Gastrointestinal (GI) Panel 06/27/2021 [facility] [address] [place] [address] (317)- - Gastrointestinal (GI) Panel This Gastrointes <SEE NOTE> 1 1 This Gastrointestinal PCR Pa iris detects the following bacteria, parasites and viruses: Campylobacter (jejuni, coli and upsaliensis), Clostridium difficile (toxin A/B), Plesiomonas shigelloides, Salmonella, Yersinia enterocolitica, Vibrio (parahaemolyticus, vulnificus and cholerae), Vibrio clolerae, Enteroaggregative E. coli (EAEC), Enteropathogenis E. coli (EPEC), Enterotoxigenic E. coli (ETEC) it/st, Shiga-like producing E. coli (STEC) stx1/stc2, E.coli O157, Shigella/Enteroinvasive E. coli (EIEC), Cryptosporidium, Cyclospora cayetanensis, Entamoeba histolytica, Giardia lamblia, Adenovirus F 40/41, Astrovirus, Norovirus GI/GII, Rotavirus A and Sapovirus (I, II, IV, V). One negative specimen does not rule out the possibility of a parasitic infection. NEGATIVE by MULTIPLEXED NUCLEIC ACID PCR Procedures Date Code Description Status 06/20/2021 14322 Physical Therapy Eval - Low Comp lexity Completed 05/26/2021 05069 Office/Outpatient New Moderate M DM 45-59 Minutes Completed Medical Devices Description No Information Available Encounters Type Date Location Provider Dx Diagnosis Office Visit 05/26/2021 11:00a [place] Neto Beck, P.A. M54.59 Other low back pain Assessments Date Code Description Provider 06/20/2021 M54.59 Other low back pain Neda ivey, [facility] 05/26/2021 M54.59 Other low back pain Neto odom, PJadenAJaden Plan of Treatment No Information Available Functional Status Description No Information Available Mental Status Description No Information Available Referrals Refer to Dr Reason for Referral Status Appt Date Authorization for PT eval fo r low back. 59258, 92936, 02748. Patient going to [facility]. Passed to PT departement. LS Created Authorization for 90398, low back, 64-15 min vis its. LS Created [place] MD M54.5 LOW BACK PAIN Created [address] [facility], [address] [place], [place] [id number] [phone]
--- OUTSIDE RECORDS SUMMARY | 2021-07-30 14:33 | CCD | Continuity of Care Document ---
Author Author Rodrick TITUS Organization Unknown Address [address] [place] [address] Phone [phone] Problems Description No Information Available Social History [...] CPT Code Status Date Vaccine Lot # [id number] Given 06/29/2021 Influenza (>= 6 Months) P.F. [...] Available Procedures Date Code Description Status 06/29/2021 41969 Admin Patient Focused Health Ris k Assessment Instrument Completed 06/29/2021 62419 Brief Emotional/Beha v Assessment W/ Scoring Doc Per Standard Inst Completed Medical Devices Description No Information Available Encounters Description No Information Available Assessments Date Code Description Provider 06/29/2021 R10.84 Generalized abdominal pain CORBY Hogan 06/29/2021 R19.7 Diarrhea, unspecified CORBY Vo 06/29/2021 M54.50 Low back pain, unspecified CORBY Hogan Plan of Treatment Future Appointment(s):* 08/24/2021 3:00 pm - CORBY Stewart at [facility] 06/29/2021 - CORBY Stewart* R10.84 Generalized abdominal pain * R19.7 Diarrhea, unspecified * M54.50 Low back pain, unspecified * All * New Medication:* No Active Medications - Functional Status Description No Information Available Mental Status Description No Information Available Referrals Description No Information Available
--- OUTSIDE RECORDS SUMMARY | 2021-07-30 14:33 | CCD | Continuity of Care Document ---
Author Author Rodrick TITUS Organization Unknown Address [address] [place] [address] Phone [phone] Problems Description No Information Available Social History [...] CPT Code Status Date Vaccine Lot # [id number] Given 06/29/2021 Influenza (>= 6 Months) P.F. [...] Available Procedures Date Code Description Status 06/29/2021 31614 Admin Patient Focused Health Ris k Assessment Instrument Completed 06/29/2021 44353 Brief Emotional/Beha v Assessment W/ Scoring Doc Per Standard Inst Completed Medical Devices Description No Information Available Encounters Description No Information Available Assessments Description No Information Available Plan of Treatment Future Appointment(s):* 08/24/2021 3:00 pm - CORBY Stewart at [facility] 06/29/2021 - CORBY Stewart* All [...]
--- OUTSIDE RECORDS SUMMARY | 2021-07-30 14:34 | CCD ---
Author Author [facility] Address Unknown Phone Unavailable Care Team Providers Care Stone Cleaner Name Role Phone Michelle Esparza SUPERVISOR FINISHING DEPARTMENT Unavailable Unavailable Esparza Michelle SUPERVISOR FINISHING DEPARTMENT Unavailable Unavailable Esparza Michelle SUPERVISOR FINISHING DEPARTMENT Unavailable Unavailable Esparza Michelle SUPERVISOR FINISHING DEPARTMENT Unavailable Unavailable Esparza, Michelle SUPERVISOR FINISHING DEPARTMENT Unavailable Unavailable Esparza, Michelle SUPERVISOR FINISHING DEPARTMENT Unavailable Unavailable Esparza, Michelle SUPERVISOR FINISHING DEPARTMENT Unavailable Unavailable Esparza, Michelle SUPERVISOR FINISHING DEPARTMENT Unavailable Unavailable Esparza, Michelle SUPERVISOR FINISHING DEPARTMENT Unavailable Unavailable Esparza, Michelle SUPERVISOR FINISHING DEPARTMENT Unavailable Unavailable Esparza, Michelle SUPERVISOR FINISHING DEPARTMENT Unavailable Unavailable Esparza, Michelle SUPERVISOR FINISHING DEPARTMENT Unavailable Unavailable Esparza, Michelle SUPERVISOR FINISHING DEPARTMENT Unavailable Unavailable Maring, Mandie PA Unavailable Unavailable [...] Mandie PA Unavailable Unavailable Servage, L Genny SUPERVISOR FINISHING DEPARTMENT Unavailable Unavailable Servage, L Genny SUPERVISOR FINISHING DEPARTMENT Unavailable Unavailable Servage, L Genny SUPERVISOR FINISHING DEPARTMENT Unavailable Unavailable Servage, L Genny SUPERVISOR FINISHING DEPARTMENT Unavailable Unavailable Servage, L Genny SUPERVISOR FINISHING DEPARTMENT Unavailable Unavailable Servage, L Genny SUPERVISOR FINISHING DEPARTMENT Unavailable Unavailable Servage, L Genny SUPERVISOR FINISHING DEPARTMENT Unavailable Unavailable Servage, L Genny SUPERVISOR FINISHING DEPARTMENT Unavailable Unavailable Servage, L Genny SUPERVISOR FINISHING DEPARTMENT Unavailable Unavailable Servage, L Genny SUPERVISOR FINISHING DEPARTMENT Unavailable Unavailable Servage, L Genny SUPERVISOR FINISHING DEPARTMENT Unavailable Unavailable Servage, L Genny SUPERVISOR FINISHING DEPARTMENT Unavailable Unavailable Servage, L Genny SUPERVISOR FINISHING DEPARTMENT Unavailable Unavailable Servage, L Genny SUPERVISOR FINISHING DEPARTMENT Unavailable Unavailable Servage, L Genny SUPERVISOR FINISHING DEPARTMENT Unavailable Unavailable Servage, L Genny SUPERVISOR FINISHING DEPARTMENT Unavailable Unavailable Servage, L Genny SUPERVISOR FINISHING DEPARTMENT Unavailable Unavailable Servage, L Genny SUPERVISOR FINISHING DEPARTMENT Unavailable Unavailable Servage, L Genny SUPERVISOR FINISHING DEPARTMENT Unavailable Unavailable Servage, L Genny SUPERVISOR FINISHING DEPARTMENT Unavailable Unavailable Servage, L Genny SUPERVISOR FINISHING DEPARTMENT Unavailable Unavailable Servage, L Genny SUPERVISOR FINISHING DEPARTMENT Unavailable Unavailable Servage, L Genny SUPERVISOR FINISHING DEPARTMENT Unavailable Unavailable Servage, L Genny SUPERVISOR FINISHING DEPARTMENT Unavailable Unavailable Servage, L Genny SUPERVISOR FINISHING DEPARTMENT Unavailable Unavailable Servage, L Genny SUPERVISOR FINISHING DEPARTMENT Unavailable Unavailable Servage, L Genny SUPERVISOR FINISHING DEPARTMENT Unavailable Unavailable Servage, L Genny SUPERVISOR FINISHING DEPARTMENT Unavailable Unavailable Servage, L Genny SUPERVISOR FINISHING DEPARTMENT Unavailable Unavailable Servage, L Genny SUPERVISOR FINISHING DEPARTMENT Unavailable Unavailable Servage, L Genny SUPERVISOR FINISHING DEPARTMENT Unavailable Unavailable Servage, L Genny SUPERVISOR FINISHING DEPARTMENT Unavailable Unavailable Servage, L Genny SUPERVISOR FINISHING DEPARTMENT Unavailable Unavailable Servage, L Genny SUPERVISOR FINISHING DEPARTMENT Unavailable Unavailable Servage, L Genny SUPERVISOR FINISHING DEPARTMENT Unavailable Unavailable Servage, L Genny SUPERVISOR FINISHING DEPARTMENT Unavailable Unavailable Servage, L Genny SUPERVISOR FINISHING DEPARTMENT Unavailable Unavailable Servage, L Genny SUPERVISOR FINISHING DEPARTMENT Unavailable Unavailable Servage, L Genny SUPERVISOR FINISHING DEPARTMENT Unavailable Unavailable Servage, L Genny SUPERVISOR FINISHING DEPARTMENT Unavailable Unavailable Servage, L Genny SUPERVISOR FINISHING DEPARTMENT Unavailable Unavailable Servage, L Genny SUPERVISOR FINISHING DEPARTMENT Unavailable Unavailable Servage, L Genny SUPERVISOR FINISHING DEPARTMENT Unavailable Unavailable Servage, L Genny SUPERVISOR FINISHING DEPARTMENT Unavailable Unavailable Servage, L Genny SUPERVISOR FINISHING DEPARTMENT Unavailable Unavailable Servage, L Genny SUPERVISOR FINISHING DEPARTMENT Unavailable Unavailable Servage, L Genny SUPERVISOR FINISHING DEPARTMENT Unavailable Unavailable Servage, L Genny SUPERVISOR FINISHING DEPARTMENT Unavailable Unavailable Servage, L Genny SUPERVISOR FINISHING DEPARTMENT Unavailable Unavailable Servage, L Genny SUPERVISOR FINISHING DEPARTMENT Unavailable Unavailable Servage, L Genny SUPERVISOR FINISHING DEPARTMENT Unavailable Unavailable Servage, L Genny SUPERVISOR FINISHING DEPARTMENT Unavailable Unavailable Servage, L Genny SUPERVISOR FINISHING DEPARTMENT Unavailable Unavailable Servage, L Genny SUPERVISOR FINISHING DEPARTMENT Unavailable Unavailable Servage, L Genny SUPERVISOR FINISHING DEPARTMENT Unavailable Unavailable Servage, L Genny SUPERVISOR FINISHING DEPARTMENT Unavailable Unavailable Servage, L Genny SUPERVISOR FINISHING DEPARTMENT Unavailable Unavailable Servage, L Genny SUPERVISOR FINISHING DEPARTMENT Unavailable Unavailable Servage, L Genny SUPERVISOR FINISHING DEPARTMENT Unavailable Unavailable Servage, L Genny SUPERVISOR FINISHING DEPARTMENT Unavailable Unavailable Servage, L Genny SUPERVISOR FINISHING DEPARTMENT Unavailable Unavailable Servage, L Genny SUPERVISOR FINISHING DEPARTMENT Unavailable Unavailable Servage, L Genny SUPERVISOR FINISHING DEPARTMENT Unavailable Unavailable Servage, L Genny SUPERVISOR FINISHING DEPARTMENT Unavailable Unavailable Servage, L Genny SUPERVISOR FINISHING DEPARTMENT Unavailable Unavailable Spencer, Kimberly PA Unavailable Unavailable Spencer, Kimberly PA Unavailable Unavailable Spencer, Kimberly PA Unavailable Unavailable Spencer, Kimberly PA Unavailable Unavailable Spencer, Kimberly PA Unavailable Unavailable Spencer, Kimberly PA Unavailable Unavailable Spencer, Kimberly PA Unavailable Unavailable Spencer, Kimberly PA Unavailable Unavailable Spencer, Kimberly PA Unavailable Unavailable Spencer, Kimberly PA Unavailable Unavailable MCELHERAN, MIKALA PA Unavailable [...] Unavailable Unavailable MCELHERAN, MIKALA PA Unavailable Unavailable Thorne, Vito MIKE Unavailable Unavailable Thorne, Vito MIKE Unavailable Unavailable Thorne, Vito MIKE Unavailable Unavailable Thorne, Vito MIKE Unavailable Unavailable Thorne, Vito MIKE Unavailable Unavailable Thorne, Vito MIKE Unavailable Unavailable LAROCK, J ABDULAZIZ SUPERVISOR FINISHING DEPARTMENT Unavailable Unavailable LAROCK, J ABDULAZIZ SUPERVISOR FINISHING DEPARTMENT Unavailable Unavailable LAROCK, J ABDULAZIZ SUPERVISOR FINISHING DEPARTMENT Unavailable Unavailable LAROCK, J ABDULAZIZ SUPERVISOR FINISHING DEPARTMENT Unavailable Unavailable LAROCK, J ABDULAZIZ SUPERVISOR FINISHING DEPARTMENT Unavailable Unavailable LAROCK, J ABDULAZIZ SUPERVISOR FINISHING DEPARTMENT Unavailable Unavailable LAROCK, J ABDULAZIZ SUPERVISOR FINISHING DEPARTMENT Unavailable Unavailable LAROCK, J ABDULAZIZ SUPERVISOR FINISHING DEPARTMENT Unavailable Unavailable LAROCK, J ABDULAZIZ SUPERVISOR FINISHING DEPARTMENT Unavailable Unavailable LAROCK, J ABDULAZIZ SUPERVISOR FINISHING DEPARTMENT Unavailable Unavailable LAROCK, J ABDULAZIZ SUPERVISOR FINISHING DEPARTMENT Unavailable Unavailable LAROCK, J ABDULAZIZ SUPERVISOR FINISHING DEPARTMENT Unavailable Unavailable LAROCK, J ABDULAZIZ SUPERVISOR FINISHING DEPARTMENT Unavailable Unavailable LAROCK, J ABDULAZIZ SUPERVISOR FINISHING DEPARTMENT Unavailable Unavailable LAROCK, J ABDULAZIZ SUPERVISOR FINISHING DEPARTMENT Unavailable Unavailable LAROCK, J ABDULAZIZ SUPERVISOR FINISHING DEPARTMENT Unavailable Unavailable LAROCK, J ABDULAZIZ SUPERVISOR FINISHING DEPARTMENT Unavailable Unavailable LAROCK, J ABDULAZIZ SUPERVISOR FINISHING DEPARTMENT Unavailable Unavailable LAROCK, J ABDULAZIZ SUPERVISOR FINISHING DEPARTMENT Unavailable Unavailable LAROCK, J ABDULAZIZ SUPERVISOR FINISHING DEPARTMENT Unavailable Unavailable LAROCK, J ABDULAZIZ SUPERVISOR FINISHING DEPARTMENT Unavailable Unavailable LAROCK, J ABDULAZIZ SUPERVISOR FINISHING DEPARTMENT Unavailable Unavailable RING, K REMI PA Unavailable [...] K REMI PA Unavailable Unavailable RING, K RMEI PA Unavailable Unavailable RING, K REMI PA [...] is protected by Article 27-F of the [facility] Public Health law. If you continue you may have access to information: Regarding HIV / AIDS; Provided by facilities licensed or operated by the [facility] Office of Mental Health; or Provided by the [facility] Office for People With Developmental Disabilities. If such information is present, then the following [facility] mandated warning applies: This information has [...] law may result in a fine or detention sentence or both. A general authorization for the release of medical or other information is NOT sufficient authorization for further disc losure. Encounters Encounter Providers Location Date Indications Data Source(s ) Outpatient Attender: Michelle thapa 07/26/2021 12:30:00 PM EST [facility] ([facility]) Outpatient Attender: Kimberly TAVAREZ 08:12:00 AM EST - 07/18/2021 08:12:00 AM EST [facility] Outpatient Attender: Kimberly TAVAREZ 11/2020 03:02:00 PM EDT - 06/29/2021 03:02:00 PM EDT [facility] Outpatient Attender: MIKALA TAVAREZ Physical Therapy 05/26/2021 11:00:00 AM EDT [facility] ([facility]) Unknown [address] [facility] [place] [address] 04/20/2021 12:00:00 AM EDT eCW1 ([facility]) Unknown [address] [facility] [place] [address] 04/17/2021 12:00:00 AM EDT eCW1 ([facility]) Unknown [address] [facility] [place] [address] 03/29/2021 12:00:00 AM EDT eCW1 ([facility]) Unknown [address] [facility] [place] [address] 03/07/2021 12:00:00 AM EDT eCW1 ([facility]) Outpatient [address] [facility] [place] [address] 03/06/2021 12:00:00 AM EDT eCW1 ([facility]) Outpatient [address] [facility] [place] [address] 03/02/2021 12:00:00 AM EDT eCW1 ([facility]) Unknown [address] [facility] [place] [address] 03/02/2021 12:00:00 AM EDT eCW1 ([facility]) Emergency Attender: Vito Thorne MDConsultant: Genny Parmar 2021 06:41:00 AM EDT - 2021 07:42:00 AM EDT [facility] Patient discharged. Unknown [address] [facility] [place] [address] 2021 12:00:00 AM EDT eCW1 ([facility]) Outpatient [address] [facility] [place] [address] 02/28/2021 12:00:00 AM EDT eCW1 ([facility]) Unknown [address] [facility] [place] [address] 02/24/2021 12:00:00 AM EDT [facility]) Unknown [address] [facility] [place] [address] 02/23/2021 12:00:00 AM EDT [facility] Unknown [address] [facility] [place] [address] 02/22/2021 12:00:00 AM EDT [facility]CW1 ([facility]) Outpatient [address] [facility] [place] [address] 02/21/2021 12:00:00 AM EDT [facility] Unknown [address] [facility] [place] [address] 02/21/2021 12:00:00 AM EDT [facility] Outpatient Attender: REMI Johnston 02/19/2021 04:55:00 PM EDT [facility] ([facility]) Outpatient [address] [facility] [place] [address] 02/15/2021 12:00:00 AM EDT [facility]CW1 ([facility]) Unknown [address] [facility] [place] [address] 01/26/2021 12:00:00 AM EDT [facility]CW1 ([facility]) Outpatient Attender: Mandie TAVAREZ 01/24/20 03:23:07 PM EDT - 01/23/2021 04:07:31 PM EDT [facility] ([facility] ) Outpatient Attender: ABDULAZIZ JIMENEZ NP 12/25 12:05:53 PM EDT - 01/12/2021 12:58:07 PM EDT [facility] ([facility] ) Immunizations Vaccine Date Status Description Data Source(s) New in 2011. IIV4 06/29/2021 04:01:00 PM EDT completed [facility] ([facility]) Medications Medication Brand Name Start Date Product Form Dose Route Admi nistrative Instructions Pharmacy Instructions Status Indications Reaction Description Data Source(s) Naproxen 500 MG Delayed Release Oral Tablet NAPROXEN 09/2020 12:00:00 AM EST tablet,delayed release (DR/EC) 20 TAKE ONE TABLET BY MOUTH TWICE A DAY NEEDED TAKE ONE TABLET BY MOUTH TWICE A DAY NEEDED SOLD: 07/28/2021 [facility] tizanidine 4 MG Oral Tablet TIZANIDINE HCL 07/27/2021 12:00:00 AM EST tablet 14 TAKE ONE TABLET BY MOUTH EVERY 6 TO 8 HOURS NEEDED FOR MUSCLE SPASMS TAKE ONE TABLET BY MOUTH EVERY 6 TO 8 HOURS NEEDED FOR MUSCLE SPASMS SOLD: 07/28/2021 [facility] tizanidine 4 MG Oral Tablet Tizanidine HCL 07/26/2021 12:00:00 AM EST active [facility] ([facility]) Naproxen 500 MG Delayed Release Oral Tablet Naproxen 08/2020 12:00:00 AM EST ORAL active [facility] ( [facility]) 50 mg 06/30/2021 12:00:00 AM EDT tablet 90 TAKE ONE TABLET BY MOUTH EVERY DAY TAKE ONE TABLET BY MOUTH EVERY DAY SOLD: 07/05/2021 [facility] Sertraline 50 MG Oral Tablet Sertraline HCL 06/29/2021 12:00:00 AM EDT ORAL active [facility] ([facility]) No Active Medications 06/29/2021 12:00:00 AM EDT completed [facility] ([facility]) 4 mg 06/27/2021 12:00:00 AM EDT tablet 5 TAKE ONE TABLET BY MOUTH EVERY 6 TO 8 HOURS NEEDED FOR NAUSEA AND VOMITING TAKE ONE TABLET BY MOUTH EVERY 6 TO 8 HOURS NEEDED FOR NAUSEA AND VOMITING SOLD: 07/05/2021 [facility] 25 mg 05/02/2021 12:00:00 AM EDT capsule [...] NEEDED FOR IRRITABLE BOWEL SYMPTOMS SOLD: 05/09/2021 [facility] 40 mg 03/20/2021 12:00:00 AM EDT [...] NEEDED FOR NAUSEA OR VOMITING SOLD: 04/06/2021 [facility] Ondansetron 4 MG Disintegrating Oral Tablet ONDANSETRON 03/17/2021 12:00:00 AM EDT tablet,disintegrating 16 DISSOLVE 1 TABLET ON TONGUE EVERY 6-8 HOURS NEEDED FOR NAUSEA AND VOMITING DISSOLVE 1 TABLET ON TONGUE EVERY 6-8 HO URS NEEDED FOR NAUSEA AND VOMITING SOLD: 04/06/2021 [facility] Cyclobenzaprine hydrochloride 5 MG Oral Tablet CYCLOBENZAPRI [...] A DAY NEEDED FOR PAIN SOLD: 03/13/2021 [facility] Alprazolam 0.25 MG Oral Tablet ALPRAZOLAM 03/07/2021 12:00:00 AM EDT tablet 10 TAKE 1 TABLET BY MOUTH TWICE A DAY SPARI NGLY NEEDED FOR SEVERE ANXIETY MAX DAILY DOSE = 2 TABLETS TAKE 1 TABLET BY MOUTH TWICE A DAY SPARI NGLY NEEDED FOR SEVERE ANXIETY MAX DAILY DOSE = 2 TABLETS SOLD: 03/08/2021 [facility] meloxicam 15 MG Oral Tablet Meloxicam 15 MG Meloxicam 15 MG 03/02/2021 12:00:00 AM EDT 1.0 {tablet} active Meloxicam 1 5 MG eCW1 ([facility]) 15 mg 03/02/2021 12:00:00 AM EDT tablet 30 TAKE 1 TABLET BY MOUTH ONCE A DAY TAKE 1 TABLET BY MOUTH ONCE A DAY SOLD: 03/03/2021 [facility] 5 % 2021 12:00:00 AM EDT adhesive patch,medicate d 7 APPLY 1 PATCH TO SKIN ONCE A DAY TAKE OFF AFTER 12 HOURS APPLY 1 PATCH TO SKIN ONCE A DAY TAKE OFF AFTER 12 HOURS SOLD: 03/03/2021 [facility] calcium polycarbophil 625 MG Oral Tablet [Fiber Tab] Fiber 6 25 MG Fiber 625 MG 02/28/2021 12:00:00 AM EDT active Fiber 625 MG eCW1 ([facility]) calcium polycarbophil 625 MG Oral Tablet [Fiber Tab] Fiber 6 25 MG Fiber 625 MG 02/28/2021 12:00:00 AM EDT active Fiber 625 MG eCW1 ([facility]) calcium polycarbophil 625 MG Oral Tablet [Fiber Tab] Fiber 6 25 MG Fiber 625 MG 02/28/2021 12:00:00 AM EDT active Fiber 625 MG eCW1 ([facility]) calcium polycarbophil 625 MG Oral Tablet [Fiber Tab] Fiber 6 25 MG Fiber 625 MG 02/28/2021 12:00:00 AM EDT active Fiber 625 MG eCW1 ([facility]) calcium polycarbophil 625 MG Oral Tablet [Fiber Tab] Fiber 6 25 MG Fiber 625 MG 02/28/2021 12:00:00 AM EDT active Fiber 625 MG eCW1 ([facility]) calcium polycarbophil 625 MG Oral Tablet [Fiber Tab] Fiber 6 25 MG Fiber 625 MG 02/28/2021 12:00:00 AM EDT active Fiber 625 MG eCW1 ([facility]) calcium polycarbophil 625 MG Oral Tablet [Fiber Tab] Fiber 6 25 MG Fiber 625 MG 02/28/2021 12:00:00 AM EDT active Fiber 625 MG eCW1 ([facility]) calcium polycarbophil 625 MG Oral Tablet [Fiber Tab] Fiber 6 25 MG Fiber 625 MG 02/28/2021 12:00:00 AM EDT active Fiber 625 MG eCW1 ([facility]) calcium polycarbophil 625 MG Oral Tablet [Fiber Tab] Fiber 6 25 MG Fiber 625 MG 02/28/2021 12:00:00 AM EDT active Fiber 625 MG eCW1 ([facility]) 625 mg 02/28/2021 12:00:00 AM EDT tablet 60 TAKE ONE TABLET BY MOUTH TWICE A DAY TAKE ONE TABLET BY MOUTH TWICE A DAY SOLD: 2021 [facility] 5 % 02/24/2021 12:00:00 AM EDT adhesive patch,medicate d 5 APPLY ONE PATCH TO AREA OF PAIN EVERY DAY REMOVE AFTER 12 HOURS APPLY ONE PATCH TO AREA OF PAIN EVERY DAY REMOVE AFTER 12 HOURS SOLD: 2021 [facility] 500 mg 02/24/2021 12:00:00 AM EDT tablet 45 TAKE ONE TABLET BY MOUTH THREE TIMES A DAY TAKE ONE TABLET BY MOUTH THREE TIMES A DAY SOLD: 2021 [facility] Cyclobenzaprine hydrochloride 5 MG Oral Tablet CYCLOBENZAPRI NE HCL 02/22/2021 12:00:00 AM EDT tablet 30 TAKE ONE TABLET BY MOUTH THREE TIMES A DAY NEEDED FOR MUSCLE SPASMS TAKE ONE TABLET BY MOUTH THREE TIMES A D AY NEEDED FOR MUSCLE SPASMS SOLD: 2021 [facility] 40 mg 02/21/2021 12:00:00 AM EDT capsule,delayed release (DR/EC) 30 TAKE ONE CAPSULE BY MOUTH EVERY MORNING 30 MINUTES BEFORE MEAL TAKE ONE CAPSULE BY MOUTH EVERY MORNING 30 MINUTES BEFORE MEAL SOLD: 02/22/2021 [facility] Omeprazole 40 MG Delayed Release Oral Capsule Omeprazole 40 MG 02/21/2021 12:00:00 AM EDT active Omeprazo le 40 MG eCW1 ([facility]) tizanidine 4 MG Oral Tablet TIZANIDINE HCL [...] 12 HOURS NEEDED FOR PAIN SOLD: 02/22/2021 [facility] Naproxen 500 MG Delayed Release Oral Tablet Naproxen 01/25 12:00:00 AM EDT ORAL completed [facility] ([facility]) tizanidine 4 MG Oral Tablet Tizanidine HCL 02/19/2021 12:00:00 AM EDT ORAL completed [facility] ([facility]) 10 mg 02/15/2021 12:00:00 AM EDT tablet 6 TAKE ONE TABLET BY MOUTH TWICE A DAY NEEDED FOR NAUSEA TAKE ONE TABLET BY MOUTH TWICE A DAY NEEDED FOR NAUSEA SOLD: 02/15/2021 [facility] Prochlorperazine 10 MG Oral Tablet Prochlorperazine Ma leate 10 MG Prochlorperazine Maleate 10 MG 02/15/2021 12:00:00 AM EDT 1.0 {tablet} active Prochlorperazine Maleate 10 MG e CW1 ([facility]) Naproxen Sodium 220 MG Naproxen Sodium 220 MG 02/15/2021 12:00:00 AM E DT active Naproxen Sodium 220 MG eC W1 ([facility]) Naproxen Sodium 220 MG Naproxen Sodium 220 MG 02/15/2021 12:00:00 AM E DT active Naproxen Sodium 220 MG eC W1 ([facility]) Naproxen Sodium 220 MG Naproxen Sodium 220 MG 02/15/2021 12:00:00 AM E DT active Naproxen Sodium 220 MG eC W1 ([facility]) Naproxen Sodium 220 MG Naproxen Sodium 220 MG 02/15/2021 12:00:00 AM E DT active Naproxen Sodium 220 MG eC W1 ([facility]) Naproxen Sodium 220 MG Naproxen Sodium 220 MG 02/15/2021 12:00:00 AM E DT active Naproxen Sodium 220 MG eC W1 ([facility]) Naproxen Sodium 220 MG Naproxen Sodium 220 MG 02/15/2021 12:00:00 AM E DT active Naproxen Sodium 220 MG eC W1 ([facility]) Prochlorperazine 10 MG Oral Tablet Prochlorperazine Ma leate 10 MG Prochlorperazine Maleate 10 MG 02/15/2021 12:00:00 AM EDT 1.0 {tablet} active Prochlorperazine Maleate 10 MG e CW1 ([facility]) Cyclobenzaprine hydrochloride 10 MG Oral Tablet CYCLOBENZAPR INE HCL 01/23/2021 12:00:00 AM EDT tablet 10 TAKE ONE TABLET BY MOUTH AT BEDTIME FOR 10 DAYS TAKE ONE TABLET BY MOUTH AT BEDTIME FOR 10 DAYS SOLD: 01/24/2021 [facility] 800 mg 01/23/2021 12:00:00 AM EDT tablet 30 TAKE ONE TABLET BY MOUTH THREE TIMES A DAY FOR 10 DAYS TAKE ONE TABLET BY MOUTH THREE TIMES A DAY FOR 10 DAYS SOLD: 01/24/2021 [facility] 875 mg 09/14/2020 12:00:00 AM EST tablet 14 TAKE ONE TABLET BY MOUTH EVERY 12 HOURS FOR 7 DAYS TAKE ONE TABLET BY MOUTH EVERY 12 HOURS FOR 7 DAYS TREE [facility] Insurance Providers Payer name Policy type / Coverage type Policy ID Covered green party ID Covered green party's relationship to rangel Policy Rangel Plan Information Medicaid S [id number] S [id number] Managed Care - Community Plan [facility] P [id number] S [id number] Medicaid S [id number] S [id number] Managed Care - Community Plan [facility] P [id number] S [id number] Medicaid S [id number] S [id number] [facility] [id number] SP [id number] Managed Care - [facility] Community Plan P [id number] S [id number] Managed Care - Community Plan [facility] P [id number] S [id number] Managed Care - [facility] Community Plan P [id number] S [id number] [place] [employer] [id number] Self [id number] Medicaid Dental O [id number] S [id number] UNHC COMMUNITY PLAN MCDO [id number] SP [id number] UNHC COMMUNITY PLAN XIX [id number] 18 [id number] [place] [id number] SP [id number] U BCBS OF [facility] [id number] [facility] [id number] SP [id number] [facility] COMMUNITY PLAN [facility] [id number] SP [id number] ANSI-Medicaid [id number] MEDICAID [id number] SP [id number] [facility](MCAID) O [id number] S [id number] Managed Care BCBS O [id number] S [id number] Problems, Conditions, and Diagnoses Code Display Name Description Problem Type Effective Dates Data Source(s) M5450 Low back pain, unspecified Low back pain, unspecified Diagnosis 07/18/2021 08:12:00 AM [facility] [id number] Generalized abdominal pain Generalized abdominal pain Diagnosis 07/18/2021 08:12:00 AM [facility] R197 Diarrhea, unspecified Diarrhea, unspecified Diagnosis 07/18/2021 08:12:00 AM [facility] R209 Unspecified disturbances of skin sensati on Unspecified disturbances of skin sensation Diagnosis 07/18/2021 08:12:00 AM [facility] Z23 Encounter for immunization Encounter for immunization Diagnosis 06/29/2021 03:02:00 PM [facility] F419 Anxiety disorder, unspecified Anxiety disorder, unspec ified Diagnosis 06/29/2021 03:02:00 PM [facility] [id number] Other specified places as the place of o ccurrence of the external cause Other specified places as the place of occurrence of the external cause Diagnosis 2021 06:41:00 AM [facility] [id number] Overexertion from strenuous movement or load, initial encounter Overexertion from strenuous movement or load, initial encounter Diagnosis 2021 06:41:00 AM [facility] [facility] [id number] Body mass index [BMI] 35.0-35.9, adult B hunter mass index [BMI] 35.0-35.9, adult Diagnosis 2021 06:41:00 AM EDT [facility] E669 Obesity, unspecified Obesity, unspecified Diagnosis 2021 06:41:00 AM EDT [facility] [id number] Strain of muscle, fascia and tendon of l ower back, initial encounter Strain of muscle, fascia and tendon of lower back, initial encounter Diagnosis 2021 06:41:00 AM EDT [facility] M545 Low back pain Low back pain Diagnosis 2021 06:41:00 AM EDT [facility] Z68.41 [id number] Body mass index (BMI) of 40.1 to 44.9 in adult Problem 03/06/2021 12:00:00 AM EDT [facility] ([facility]) F41.8 [id number] Anxiety about health Problem 02/28/2021 12:0 0:00 AM EDT [facility] ([facility]) K58.2 [id number] Irritable bowel syndrome with [facility] constipation and diarrhea Problem 02/28/2021 12:00:00 AM EDT [facility] ([facility] F45.8 [id number] Nervous stomach Problem 02/21/2021 12:00:00 AM EDT [facility] ([facility]) K29.70 [id number] Gastritis without bl eeding, unspecified chronicity, unspecified gastritis type Problem 02/21/2021 12:00:00 AM EDT [facility] ([facility]) Z68.41 [id number] BMI 40.0-44.9, adult Problem 02/15/2021 12:0 0:00 AM EDT eC1 ([facility]) Surgeries/Procedures Procedure Description Date Indications Data Source(s) OFFICE OUTPATIENT VISIT 15 MINUTES 07/26/2021 12:00:00 AM EST [facility] ([facility]) OFFICE OUTPATIENT VISIT 15 MINUTES 07/18/2021 12:00:00 AM EST [facility] ([facility]) Brief Emotional/Behav Assessment W/ Scoring Doc Per Standard Inst 06/29/2021 12:00:00 AM EDT [facility] ([facility]) Admin Patient Focused Health Risk Assessment Instrument 06/29/2021 12:00:00 AM EDT [facility] ([facility]) OFFICE OUTPATIENT NEW 30 MINUTES 06/29/2021 12:00:00 A M EDT [facility] ([facility]) Physical Therapy Eval - Low Complexity 06/20/2021 12:0 0:00 AM EDT [facility] ([facility]) OFFICE OUTPATIENT NEW 45 MINUTES 05/26/2021 12:00:00 A M EDT [facility] ([facility]) OFFICE OUTPATIENT VISIT 15 MINUTES 02/19/2021 12:00:00 AM EDT [facility] ([facility]) Results ID Date Data Source [id number] 07/18/2021 09:05:00 AM EST [facility] ([facility]) Name Value Range Interpretation Code Description Data Meche rce(s) Supporting Document(s) Cobalamin (Vitamin B12) [Mass/volume] in Serum or Plasma 260 pg/mL 2 32-1245 [facility] ([facility]) Is patient fasting? N ID Date Data Source [id number] 07/18/2021 09:05:00 AM EST [facility] ([facility]) Name Value Range Interpretation Code Description Data Meche rce(s) Supporting Document(s) Cve Panel Laboratory test result [facility] ([facility]) Is patient fasting? N Cholesterol 141 mg/dL 131-200 [facility] ([facility]) Is patient fasting? N Triglycerides 56 mg/dL 35-160 [facility] ([facility]) Is patient fasting? N LDL 83 mg/dL 65-175 [facility] ([facility]) Is patient fasting? N HDL 48 mg/dL 29-86 [facility] ([facility]) Is patient fasting? N LDL/HDL 1.73 1.00-3.55 [facility] ([facility]) Is patient fasting? N Risk Factor 2.9 3.4-4.9 Below low normal [facility] ([facility]) Is patient fasting? N ID Date Data Source [id number] 07/18/2021 09:05:00 AM EST [facility] ([facility]) Name Value Range Interpretation Code Description Data Meche rce(s) Supporting Document(s) Hemoglobin A1c/Hemoglobin.total in Blood 5.2 % 4.4-6.1 [facility] ([facility]) Is patient fasting? N ID Date Data Source [id number] 07/18/2021 09:05:00 AM EST [facility] ([facility]) Name Value Range Interpretation Code Description Data [facility] Supporting Document(s) Comprehensive Metabo Laboratory test result [facility] ([facility]) Is patient fasting? N Sodium 138 meq/L 134-153 [facility] ([facility]) Is patient fasting? N Potassium 4.4 meq/L 3.6-5.0 [facility] ([facility]) Is patient fasting? N Chloride 102 meq/L 98-107 [facility] ([facility]) Is patient fasting? N Glucose 102 mg/dL 70-99 Above high normal [facility] ([facility]) Is patient fasting? N Co2 25 meq/L 22-30 [facility] ([facility]) Is patient fasting? N BUN 18 mg/dL 7-21 [facility] ([facility]) Is patient fasting? N Creatinine 0.8 mg/dL 0.7-1.5 [facility] ([facility]) Is patient fasting? N Total Protein 7.2 g/dL 6.3-8.2 [facility] ([facility]) Is patient fasting? N BUN/Creat 23 8-27 [facility] ([facility]) Is patient fasting? N Globulin 2.6 GM/DL 2.4-3.2 [facility] ([facility]) Is patient fasting? N Albumin 4.6 g/dL 3.9-5.0 [facility] ([facility]) Is patient fasting? N Calcium 9.4 mg/dL 8.4-10.2 [facility] ([facility]) Is patient fasting? N A/G Ratio 1.8 0.8-2.0 [facility] ([facility]) Is patient fasting? N Total Bili Laboratory test result 0.2-1.3 [facility] ([facility]) Is patient fasting? N Alkaline Phos 205 U/L 38-126 Above high normal [facility] NT ([facility]) Is patient fasting? N Sgot/Ast 18 U/L 5-40 [facility] ([facility]) Is patient fasting? N SGPT/Alt 24 U/L 7-56 [facility] ([facility]) Is patient fasting? N Anion Gap 11.0 mmol/L 8.0-16.0 [facility] ([facility]) Is patient fasting? N Age 21 yrs [facility] ([facility]) Is patient fasting? N Non-Aa GFR Laboratory test result [facility] ([facility]) Is patient fasting? N Afr Amer GFR Laboratory test result [facility] ([facility]) Is patient fasting? N ID Date Data Source [id number] 07/18/2021 09:05:00 AM EST [facility] ([facility]) Name Value Range Interpretation Code Description Data Meche rce(s) Supporting Document(s) CBC W/Automated Diff Laboratory test result [facility] ([facility]) Is patient fasting? N RBC 5.14 10^6/uL 4.50-6.30 [facility] ([facility]) Is patient fasting? N WBC 7.4 10^3/uL 4.2-11.0 [facility] ([facility]) Is patient fasting? N Hemoglobin 15.6 g/dL 14.0-16.0 [facility] ([facility]) Is patient fasting? N Hematocrit 45.0 % 41.0-51.0 [facility] ([facility]) Is patient fasting? N MCV 87.5 fL 80.0-94.0 [facility] ([facility]) Is patient fasting? N MCH 30.4 pg 27.0-34.0 [facility] ([facility]) Is patient fasting? N RDW 12.7 % 11.5-14.8 [facility] ([facility]) Is patient fasting? N MCHC 34.7 g/dL 31.0-36.0 [facility] ([facility]) Is patient fasting? N Platelets 308 10^3/uL 150-450 [facility] ([facility]) Is patient fasting? N MPV 9.5 fL 7.4-10.4 [facility] ([facility]) Is patient fasting? N Neut 53.9 % 37.0-80.0 [facility] ([facility]) Is patient fasting? N Lymph 31.0 % 25.0-40.0 [facility] ([facility]) Is patient fasting? N [place] 12.6 % 3.0-8.0 Above high normal [facility] ([facility]) Is patient fasting? N Eos 1.0 % 0.0-7.0 [facility] ([facility]) Is patient fasting? N Baso 0.8 % 0.0-2.0 [facility] ([facility]) Is patient fasting? N %Ig 0.7 % 0.0-0.0 Above high normal [facility] ([facility]) Is patient fasting? N %NRBC 0.0 % 0.0-0.0 [facility] ([facility]) Is patient fasting? N #Neut 3.97 10^3/uL 2.00-6.90 [facility] ([facility]) Is patient fasting? N #Lymph 2.28 10^3/uL 0.60-3.40 [facility] ([facility]) Is patient fasting? N #[place] 0.93 10^3/uL 0.00-0.90 Above high normal [facility] T ([facility]) Is patient fasting? N #Baso 0.06 10^3/uL 0.00-0.20 [facility] ([facility]) Is patient fasting? N #Eos 0.07 10^3/uL 0.00-0.70 [facility] ([facility]) Is patient fasting? N #Ig 0.05 10^3/uL 0.00-0.10 [facility] ([facility]) Is patient fasting? N #NRBC 0.00 10^3/uL 0.00-0.00 [facility] ([facility]) Is patient fasting? N RBC Morph Laboratory test result [facility] ([facility]) Is patient fasting? N Manual Diff Laboratory test result M [facility] ([facility]) Is patient fasting? N ID Date Data Source [id number] 07/18/2021 09:05:00 AM EST [facility] ([facility]) Name Value Range Interpretation Code Description Data Meche rce(s) Supporting Document(s) Thyrotropin [Units/volume] in Serum or Plasma 2.81 uIU/mL 0.47-5.01 [facility] ([facility]) Is patient fasting? N ID Date Data Source [id number] 07/18/2021 12:52:00 PM [facility] Name Value Range Interpretation Code Description Data Meche rce(s) Supporting Document(s) Cobalamin (Vitamin B12) [Mass/volume] in Serum or Plasma 260 PG/ML 232 - 1245 [facility] ID Date Data Source [id number] 07/18/2021 12:52:00 PM [facility] Name Value Range Interpretation Code Description Data Mcehe rce(s) Supporting Document(s) Thyrotropin [Units/volume] in Serum or Plasma by Detec tion limit <= 0.05 mIU/L 2.81 uIU/mL 0.47 - 5.01 [facility] ID Date Data Source [id number] 07/18/2021 12:34:00 PM [facility] Name Value Range Interpretation Code Description Data Meche rce(s) Supporting Document(s) Hemoglobin A1c/Hemoglobin.total in Blood 5.2 % 4.4 - 6.1 [facility] {A1]{HB] ID Date Data Source [id number] 07/18/2021 12:29:00 PM [facility] Name Value Range Interpretation Code Description Data Meche rce(s) Supporting Document(s) [facility] Cholesterol [Mass/volume] in Serum or Plasma 141 MG/DL 131 - 200 [facility] Deprecated Triglyceride [Mass/volume] in Serum or Plasma 56 MG/DL 3 5 - 160 [facility] HDL 48 MG/DL 29 - 86 [facility] Cholesterol in LDL [Mass/volume] in Serum or Plasma by Direc t assay 83 mg/dL 65 - 175 [facility] Cholesterol.total/Cholesterol in HDL [Mass Ratio] in Serum o r Plasma 2.9 3.4 - 4.9 L [facility] LDL/HDL 1.73 1.00 - 3.55 [facility] CVE RISK CHOL/HDL LDL/HDLMEN: 1/2 AVERAGE 3.43 1.00 AVERAGE 4.97 3.55 2X AVERAGE 9.55 6.25 3X AVERAGE 23.99 7.99WOMEN: 1/2 AVERAGE 3.27 1.47 AVERAGE 4.44 3.22 2X AVERAGE 7.05 5.03 3X AVERAGE 11.04 6.14 ID Date Data Source [id number] 07/18/2021 12:29:00 PM EST [facility] Name Value Range Interpretation Code Description Data Meche rce(s) Supporting Document(s) COMPREHENSIVE METABOLIC PANEL [facility] COMPREHENSIVE METABOLIC PANEL Sodium [Moles/volume] in Serum or Plasma 138 mEq/L 134 - 153 [facility] Potassium [Moles/volume] in Serum or Plasma 4.4 mEq/L 3.6 - 5.0 [facility] Chloride [Moles/volume] in Serum or Plasma 102 mEq/L 98 - 107 [facility] Carbon dioxide, total [Moles/volume] in Serum or Plasma 25 MEQ/L 22 - 30 [facility] Glucose [Mass/volume] in Serum or Plasma 102 MG/DL 70 - 99 H [facility] BUN 18 MG/DL 7 - 21 [facility] Creatinine [Mass/volume] in Serum or Plasma 0.8 MG/DL 0.7 - 1.5 [facility] BUN/CREAT 23 8 - 27 [facility] al Protein [Mass/volume] in Serum or Plasma 7.2 G/DL 6.3 - 8.2 [facility] Albumin [Mass/volume] in Serum or Plasma 4.6 G/DL 3.9 - 5.0 [facility] Globulin [Mass/volume] in Serum by calculation 2.6 GM/DL 2.4 - 3.2 [facility] A/G RATIO 1.8 0.8 - 2.0 [facility] al Calcium [Mass/volume] in Serum or Plasma 9.4 MG/DL 8.4 - 10.2 [facility] Bilirubin.total [Mass/volume] in Serum or Plasma <0.7 MG/DL 0.2 - 1.3 [facility] Alkaline phosphatase [Enzymatic activity/volume] in Serum or Plasma 205 U/L 38 - 126 H [facility] Aspartate aminotransferase [Enzymatic activity/volume] in Serum or Plasma 18 U/L 5 - 40 [facility] Alanine aminotransferase [Enzymatic activity/volume] in Seru m or Plasma 24 U/L 7 - 56 [facility] Anion gap 3 in Serum or Plasma 11.0 mmol/L 8.0 - 16.0 [facility] AGE 21 yrs [facility] NON-AA GFR >60 mL/min [facility] AFR AMER GFR >60 mL/min [facility] Male GFR In terprentation 20-49 yrs >60 mL/min Normal 50-59 yrs >56 mL/min Normal 60-69 yrs >49 mL/min Normal 70-79yrs >42 mL/min Normal 80 and above >35 mL/min Normal Female GFR Interpretation 20-39 yrs >60 mL/min Normal 40-49 yrs >58 mL/min Normal 50-59 yrs >51 mL/min Normal 60-69 yrs >45 mL/min Normal 70-79 yrs >39 mL/min Normal 80 and above >32 mL/min Normal ID Date Data Source [id number] 07/18/2021 12:03:00 PM EST [facility] Name Value Range Interpretation Code Description Data Meche rce(s) Supporting Document(s) CBC W/AUTOMATED DIFF [facility] COMPLETE BLOOD COUNT Leukocytes [#/volume] in Blood by Automated count 7.4 10^3/uL 4.2 - 1 1.0 [facility] Erythrocytes [#/volume] in Blood by Automated count 5.14 10^6/uL 4. 50 - 6.30 [facility] Hemoglobin [Mass/volume] in Blood 15.6 g/dL 14.0 - 16.0 [facility] Hematocrit [Volume Fraction] of Blood by Automated count 45.0 % 4 1.0 - 51.0 [facility] Erythrocyte mean corpuscular volume [Entitic volume] by Auto mated count 87.5 fL 80.0 - 94.0 [facility] Erythrocyte mean corpuscular hemoglobin [Entitic mass] by Automated count 30.4 pg 27.0 - 34.0 [facility] Erythrocyte mean corpuscular hemoglobin concentration [Mass/volume] by Automated count 34.7 g/dL 31.0 - 36.0 [facility] Erythrocyte distribution width [Ratio] by Automated count 12.7 % 11.5 - 14.8 [facility] Platelets [#/volume] in Blood by Automated count 308 10^3/uL 150 - 45 0 [facility] Platelet mean volume [Entitic volume] in Blood by Automated count 9.5 fL 7.4 - 10.4 [facility] Neutrophils/100 leukocytes in Blood by Automated count 53.9 % 37. 0 - 80.0 [facility] Lymphocytes/100 leukocytes in Blood by Manual count 31.0 % 25.0 - 40.0 [facility] Monocytes/100 leukocytes in Blood by Automated count 12.6 % 3.0 - 8.0 H [facility] Eosinophils/100 leukocytes in Blood by Automated count 1.0 % 0.0 - 7.0 [facility] Basophils/100 leukocytes in Blood by Automated count 0.8 % 0.0 - 2.0 [facility] %IG 0.7 % 0.0 - 0.0 H [facility] %NRBC 0.0 % 0.0 - 0.0 [facility] al Neutrophils [#/volume] in Blood by Automated count 3.97 10^3/uL 2.00 - 6.90 [facility] Lymphocytes [#/volume] in Blood by Automated count 2.28 10^3/uL 0.60 - 3.40 [facility] Monocytes [#/volume] in Blood by Automated count 0.93 10^3/uL 0.00 - 0.90 H [facility] Eosinophils [#/volume] in Blood by Automated count 0.07 10^3/uL 0.00 - 0.70 [facility] Basophils [#/volume] in Blood by Automated count 0.06 10^3/uL 0.00 - 0.20 [facility] #IG 0.05 10^3/uL 0.00 - 0.10 [facility] #NRBC 0.00 10^3/uL 0.00 - 0.00 [facility] MANUAL DIFF NOT INDICATED [facility] RBC MORPH NOT INDICATED [facility] ID Date Data Source [id number] 06/27/2021 05:36:00 PM EDT [facility] ([facility] ) Name Value Range Interpretation Code Description Data [facility] Supporting Document(s) Gastrointestinal (GI) Panel Laboratory test result [facility] ([facility]) This Gastrointestinal PCR Panel detects the following bacteria, parasites and viruses: [...] infection. NEGATIVE by MULTIPLEXED NUCLEIC ACID PCR ID Date Data Source [id number] 03/22/2021 04:52:00 PM EDT [facility] Name Value Range Interpretation Code Description Data Meche e(s) Supporting Document(s) SARS coronavirus 2 RNA [Presence] in Res piratory specimen by CARA with probe detection NEGATIVE [facility] This lab was ordered by [facility] a nd reported by [facility]. ID Date Data Source [id number] 03/07/2021 03:15:00 PM EDT [facility] Name Value Range Interpretation Code Description Data Meche rce(s) Supporting Document(s) SARS coronavirus 2 RNA [Presence] in Res piratory specimen by CARA with probe detection NEGATIVE [facility] This lab was ordered by [facility] a nd reported by [facility]. ID Date Data Source [id number] 2021 06:41:00 AM EDT [facility] 1 OrderSheet [facility] Emergency Department [address] [place] [address] Phone #: ext- [phone] 06:39 Patient: [...] Priority Entered Acknowledged Initialed[Electronically signed by Pablito Amrbiz M.D. (07:57 2021)][Electronically signed by Sol Treviño RN (08:21 2021)] [Electronically locked by Sol Treviño RN (08:21 2021)] Name Value Range Interpretation Code Description Data Meche rce(s) Supporting Document(s) ID Date Data Source [id number] 2021 06:41:00 AM EDT [facility] 1 Medication Reconciliation Report [facility] Emergency Department [address] [place] [address] Phone #: [phone] 2021 06:39 Patient: NA DEWEY Sex: M [...] Dispense 7patch. Refills: 0. Substitution permitted.Pharmacy - [facility] - [address] ; [place], [place] [id number]. . -- Pablito Ambriz M.D. Name Value Range Interpretation Code Description Data [facility](s) Supporting Document(s) ID Date Data Source [id number] 2021 06:41:00 AM EDT [facility] 1 Medication Administration Record [facility] Emergency Department [address] [place] [address] Phone #: ext- [phone] 06:39 Patient: [...] rce(s) Supporting Document(s) ID Date Data Source [id number] 2021 06:41:00 AM EDT [facility] 1 General Instructions [facility] Emergency Department [address] [place] [address] Phone #: ext- [phone] 06:39 Patient: NA DEWEY Sex: M [...] until better.(PLEASE CONTINUE THE NAPROSYN OBTAINED FROM [facility] THE OTHER DAY ASPRESCRIBED;PLEASE [...] Dispense 7patch. Refills: 0. Substitution permitted.Pharmacy - [facility] - [id number] ; [place], [place] [phone]. .Follow-up:Return to the emergency department as needed. [...] of care. ADDITIONAL INFORMATION 2 General Instructions [facility] Emergency Department [address] [place] [address] Phone #: ext- [phone] 06:39 Patient: NA DEWEY Nettie Sex: M : 2000 Age: 21yBack Pain [...] cause the pain. Mechanical 3 General Instructions [facility] Emergency Department [address] [place] [address] Phone #: ext- [phone] 06:39 Patient: MACO NA Sheffield Sex: M : 2000 Age: 21yproblems are [...] to protect your skin. 4 General Instructions [facility] Emergency Department [address] [place] [address] Phone #: ext- [phone] 06:39 Patient: [...] or are takingother medicines. You may use biph-[id number] medicine as directed on the bottle to [...] bowel or bladder control 5 General Instructions [facility] Emergency Department [address] [place] [address] Phone #: ext- [phone] 06:39 Patient: NA DEWEY Sex: Suzy : 2000 Age: 21yWhen to seek medical adviceCall your healthcare provider right away if any of these occur: Pain becomes worse or spreads to your legs Weakness or numbness in one or both legs Numbness in the groin or genital area [id number] [employer] [place] [address]. All rights reserved. This information is not [...] rce(s) Supporting Document(s) ID Date Data Source [id number] 2021 06:41:00 AM EDT [facility] 1 Clinical Report - Nurses [facility] Emergency Department [address] [place] [address] Phone #: ext- [phone] 06:39 Patient: NA DEWEY Sex: Suzy : 2000 Age: 21yTRIAGEArrived by private vehicle. Historian: patient.Triage t manjit: 06:40 2021.Chief Complaint: BACK PAIN.Onset. (2 weeks ago). No history of recent trauma.Treatment TDP DISPLAYS ANALYST:Recently seen in the ED; seen for similar symptoms; CT done; treatment- pain medication. (Saturday ([facility])Took Naproxen last yesterday at 8pm). --06:42 03/01/21 Lara Noonan R.N.Acuity: LEVEL 4.SEPSIS SCREEN: SEPSIS SCREEN NEGATIVE. No suspected or confirmed signs of infection present.--06:44 03/01/21 Lara Noonan R.N.06:43 03/01/21. BP: 142/90. MAP: 107. HR: 81. RR: 16. O2 saturation: 96%. Temp: 97.5 F. Pain levelnow: 05/05. --06:44 03/01/21 Lara Noonan R.N.Treatment TDP DISPLAYS ANALYST:(Saw his PCP on ). --06:45 03/01/21 Lara Noonan R.N.Chief Complaint: ("I am here for a second opinion on my back pain"). --06:48 03/01/21 Lara Noonan R.N.Weight: 98.8 kg stated. Height/Length: 66 inches Per Patient. BMI: 35.2. --06:40 03/01/21 Lara Noonan R.N.MedicationsNo routine medications prescribed by MD. --06:42 03/01/21 Lara Noonan R.N.AllergiesNone. --06:42 03/01/21 Lara Noonan R.N.PROBLEMS:no known problems.ADDITIONAL SURGERIES:no known surgeries. 2 Clinical Report - Nurses [facility] Emergency Department [address] [place] [address] Phone #: ext- [phone] 06:39 Patient: NA DEWEY Sex: M : 2000 Age: 21y History SOCIAL HX: [...] Patient verbalized understanding. Written instructions provided in Rwandan. The patient was discharged by the physician. He was discharged home and accompanied by parent. He left ambulatory and via private vehicle. Parent driving. --08:10 03/01/21 Sol Treviño RN 07:40 03/01/21. BP: 140/88. MAP: 105. HR: 78. RR: 16. O2 saturation: 99%. Temp: deferred. Pain level now: 04/04. --08:10 03/01/21 Sol Treviño RN 3 Clinical Report - Nurses [facility] Emergency Department [address] [place] [address] Phone #: ext- [phone] 06:39 Patient: NA DEWEY Sex: M : 2000 Age: 21y Departure time: 07:42 2021. 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 No alcohol use or drug use.ADDITIONAL NOTESThe nursing notes have been reviewed with agreement regarding the chief complaint, HPI, ROS, PMH andpatient medications and allergies.PHYSICAL EXAMVital Signs: 2021 06:43 BP: 142/90. MAP: 107. HR: 81. RR: 16. O2 saturation: 96%. Temp: 97.5 F.Pain level now: 05/05. Have been reviewed. Oxygen saturation normal.Appearance: Alert. [...] findings on exam; pt had nmlCT at [facility] ER last week; pt has Naprosyn at home from ER visit; pt will be given Lidocaine patch andadvised to f/u w ELEMENTARY SCIENCE TEACHER for further care such as PT and/or [...] (mild). 3 Clinical Report - Physicians/Mid Levels [facility] Emergency Department [address] [place] [address] Phone #: ext- [phone] 06:39 [id number] Sex: Suzy : 2000 Age: 21yINSTRUCTIONS Apply ice for 30 minutes four times a day for two days followed by moist heat 30 minutes four times a day for five days. Don't apply ice directly to skin, don't use while asleep and don't use high setting on heating pad. Limit lifting until well. No strenuous activity until better. (PLEASE CONTINUE THE NAPROSYN OBTAINED FROM [facility] ER THE OTHER DAY PRESCRIBED; [...] patch. Refills: 0. Substitution permitted. Pharmacy - [id number] - [id number] ; [place], [place] [id number]. Phone: . Follow-up: Return to the emergency [...] Never Smoker completed Never S moker eCW1 ([facility]) Smoking 04/13/2021 12:00:00 AM EDT Never Smoker completed Never S moker eCW1 ([facility]) Smoking 03/06/2021 12:00:00 AM EDT Never Smoker completed Never S moker eCW1 ([facility]) Smoking 03/06/2021 12:00:00 AM EDT Never Smoker completed Never S moker eCW1 ([facility]) Smoking 03/06/2021 12:00:00 AM EDT Never Smoker completed Never S moker eCW1 ([facility]) Smoking 03/06/2021 12:00:00 AM EDT Never Smoker completed Never S moker eCW1 ([facility]) Smoking 03/06/2021 12:00:00 AM EDT Never Smoker completed Never S moker eCW1 ([facility]) Smoking 03/06/2021 12:00:00 AM EDT Never Smoker completed Never S moker eCW1 ([facility]) Smoking 03/02/2021 12:00:00 AM EDT Never Smoker completed Never S moker eCW1 ([facility]) Smoking 02/26/2021 12:00:00 AM EDT Never Smoker completed Never S moker eCW1 ([facility]) Smoking 02/21/2021 12:00:00 AM EDT Never Smoker completed Never S moker eCW1 ([facility]) Smoking 02/21/2021 12:00:00 AM EDT Never Smoker completed Never S moker eCW1 ([facility]) Smoking 02/21/2021 12:00:00 AM EDT Never Smoker completed Never S moker eCW1 ([facility]) Smoking 02/21/2021 12:00:00 AM EDT Never Smoker completed Never S moker eCW1 ([facility]) Smoking 02/15/2021 12:00:00 AM EDT Never Smoker completed Never S moker eCW1 ([facility]) Smoking 01/26/2021 12:00:00 AM EDT Never Smoker completed Never S martinker eCW1 ([facility]) Vital Signs ID Date Data Source UNK Name Value Range Interpretation Code Description Data Source(s) Systolic blood pressure 131 mm[Hg] 131 mm[Hg] [facility] Diastolic blood pressure 85 mm[Hg] 85 mm[Hg] [facility] ([facility]) Heart rate 115 /min 115 /min [facility] ([facility]) Respiratory rate 16 /min 16 /min [facility] ( [facility]) Oxygen saturation in Arterial blood by Pulse oximetry 99 % 99 % [facility] ([facility]) Body temperature 98.9 [degF] 98.9 [degF] [facility] Body weight 250.00 [lb_av] 250.00 [lb_av] MED[facility] T ([facility]) Body height 66 [in_i] 66 [in_i] [facility] ([facility]) 5'6" Body mass index (BMI) [Ratio] 40.3 kg/m2 40.3 k g/m2 [facility] ([facility]) Oxygen saturation in Arterial blood by Pulse oximetry 98 % 98 % [facility] ([facility]) Body weight 252.00 [lb_av] 252.00 [lb_av] MED[facility] T ([facility]) Body weight 114.307 kg 114.307 kg [facility] ([facility]) Body height 66 [in_i] 66 [in_i] [facility] ([facility]) 5'6" Body mass index (BMI) [Ratio] 40.7 kg/m2 40.7 k g/m2 [facility] ([facility]) Body surface area Derived from formula 2.21 m2 2.21 m2 [facility] ([facility]) Respiratory rate 16 /min 16 /min [facility]) Systolic blood pressure 128 mm[Hg] 128 mm[Hg] [facility] Diastolic blood pressure 84 mm[Hg] 84 mm[Hg] [facility] ([facility]) Heart rate 104 /min 104 /min [facility] ([facility]) Body temperature 97.3 [degF] 97.3 [degF] [facility] ([facility]) Body surface area Derived from formula 2.17 m2 2.17 m2 [facility] ([facility]) Systolic blood pressure 122 mm[Hg] 122 mm[Hg] M EDENT ([facility]) Diastolic blood pressure 82 mm[Hg] 82 mm[Hg] [facility] ([facility]) Body temperature 97.8 [degF] 97.8 [degF] [facility] ([facility]) Body weight 242.12 [lb_av] 242.12 [lb_av] MEDEN T ([facility]) Body weight 109.828 kg 109.828 kg [facility] ([facility]) Body height 66 [in_i] 66 [in_i] [facility] ([facility]) 5'6" Heart rate 100 /min 100 /min [facility] ([facility]) Respiratory rate 16 /min 16 /min [facility] ( [facility]) Oxygen saturation in Arterial blood by Pulse oximetry 98 % 98 % [facility] ([facility]) Body mass index (BMI) [Ratio] 39.1 kg/m2 39.1 k g/m2 [facility] ([facility]) Body mass index (BMI) [Ratio] 37.9 kg/m2 37.9 k g/m2 [facility] ([facility] ) Body height 66 [in_i] 66 [in_i] [facility] ([facility] ) 5'6" Body weight 235.00 [lb_av] 235.00 [lb_av] MEDEN T ([facility] ) Body temperature 97.3 [degF] 97.3 [degF] [facility] ([facility] ) Body weight 214.0 [lb_av] 214.0 [lb_av] eCW1 ([facility]) Body height [in_i] eCW1 ([facility]) Body mass index (BMI) [Ratio] 41.79 kg/m2 41.79 kg/m2 eCW1 ([facility]) Heart rate 90 /min 90 /min eCW1 ([facility]) Respiratory rate 18 /min 18 /min eCW1 ([facility]) Body temperature 98.7 [degF] 98.7 [degF] eCW1 ( [facility]) Systolic blood pressure 120 mm[Hg] 120 mm[Hg] e CW1 ([facility]) Diastolic blood pressure 80 mm[Hg] 80 mm[Hg] eCW1 ([facility]) Body weight 215.6 [lb_av] 215.6 [lb_av] eCW1 ([facility]) Body height [in_i] eCW1 ([facility]) Body mass index (BMI) [Ratio] 42.10 kg/m2 42.10 kg/m2 eCW1 ([facility]) Heart rate 100 /min 100 /min eCW1 ([facility]) Respiratory rate 18 /min 18 /min eCW1 ([facility]) Body temperature 98.4 [degF] 98.4 [degF] eCW1 ( [facility]) Systolic blood pressure 120 mm[Hg] 120 mm[Hg] e CW1 ([facility]) Diastolic blood pressure 80 mm[Hg] 80 mm[Hg] eCW1 ([facility]) Body weight 216.2 [lb_av] 216.2 [lb_av] eCW1 ([facility]) Body height [in_i] eCW1 ([facility]) Body mass index (BMI) [Ratio] 42.22 kg/m2 42.22 kg/m2 eCW1 ([facility]) Heart rate 90 /min 90 /min eCW1 ([facility]) Respiratory rate 18 /min 18 /min eCW1 ([facility]) Body temperature 98 [degF] 98 [degF] eCW1 ([facility]) Systolic blood pressure 130 mm[Hg] 130 mm[Hg] e CW1 ([facility]) Diastolic blood pressure 60 mm[Hg] 60 mm[Hg] eCW1 ([facility]) Diastolic blood pressure 80 mm[Hg] 80 mm[Hg] eCW1 ([facility]) Body weight 215.0 [lb_av] 215.0 [lb_av] eCW1 ([facility]) Body height [in_i] eCW1 ([facility]) Body mass index (BMI) [Ratio] 41.98 kg/m2 41.98 kg/m2 eCW1 ([facility]) Heart rate 88 /min 88 /min eCW1 ([facility]) Respiratory rate 18 /min 18 /min eCW1 ([facility]) Body temperature 98.7 [degF] 98.7 [degF] eCW1 ( [facility]) Systolic blood pressure 118 mm[Hg] 118 mm[Hg] e CW1 ([facility]) Systolic blood pressure 131 mm[Hg] 131 mm[Hg] M EDENT ([facility]) Diastolic blood pressure 91 mm[Hg] 91 mm[Hg] MEDENT ([facility]) Heart rate 89 /min 89 /min MEDENT ([facility]) Respiratory rate 14 /min 14 /min MEDENT ( [facility]) Oxygen saturation in Arterial blood by Pulse oximetry 98 % 98 % MEDENT ([facility]) Body temperature 97.8 [degF] 97.8 [degF] MEDENT ([facility], [facility]) Body weight 220.00 [lb_av] 220.00 [lb_av] MEDEN T ([facility], [facility]) Body height 67 [in_i] 67 [in_i] MEDENT ([facility]) 5'7" Body mass index (BMI) [Ratio] 34.5 kg/m2 34.5 k g/m2 MEDENT ([facility], [facility]) Body weight 220.8 [lb_av] 220.8 [lb_av] eCW1 ([facility]) Body height [in_i] eCW1 ([facility]) Body mass index (BMI) [Ratio] 43.12 kg/m2 43.12 kg/m2 eCW1 ([facility]) Heart rate 90 /min 90 /min eCW1 ([facility]) Respiratory rate 18 /min 18 /min eCW1 ([facility]) Body temperature 98.6 [degF] 98.6 [degF] eCW1 ( [facility]) Systolic blood pressure 128 mm[Hg] 128 mm[Hg] e CW1 ([facility]) Diastolic blood pressure 80 mm[Hg] 80 mm[Hg] eCW1 ([facility]) Patient Treatment Plan of Care Planned Activity Planned Date Details Description Data Source (s) meloxicam 15 MG Oral Tablet 03/02/2021 12:00:00 AM EDT eCW1 ([facility]) Omeprazole 40 MG Delayed Release Oral Capsule 02/21/2021 12:00:00 A M EDT eCW1 ([facility]) Naproxen Sodium 220 MG 02/15/2021 12:00:00 AM EDT eCW1 ([facility]) Prochlorperazine 10 MG Oral Tablet 02/15/2021 12:00:00 AM EDT eCW1 ([facility])
--- OUTSIDE RECORDS SUMMARY | 2021-07-30 17:27 | CCD ---
Author Author [facility] Address Unknown Phone Unavailable Care Team Providers Care Parking Meter Installer Name Role Phone Michelle Esparza BILINGUAL HR GENERALIST Unavailable Unavailable Esparza Michelle BILINGUAL HR GENERALIST Unavailable Unavailable Esparza Michelle BILINGUAL HR GENERALIST Unavailable Unavailable Esparza Michelle BILINGUAL HR GENERALIST Unavailable Unavailable Esparza, Michelle BILINGUAL HR GENERALIST Unavailable Unavailable Esparza, Michelle BILINGUAL HR GENERALIST Unavailable Unavailable Esparza, Michelle BILINGUAL HR GENERALIST Unavailable Unavailable Esparza, Michelle BILINGUAL HR GENERALIST Unavailable Unavailable Esparza, Michelle BILINGUAL HR GENERALIST Unavailable Unavailable Esparza, Imchelle BILINGUAL HR GENERALIST Unavailable Unavailable Esparza, Michelle BILINGUAL HR GENERALIST Unavailable Unavailable Esparza, Michelle BILINGUAL HR GENERALIST Unavailable Unavailable Esparza, Michelle BILINGUAL HR GENERALIST Unavailable Unavailable Maring, Mandie PA Unavailable Unavailable [...] Mandie PA Unavailable Unavailable Servage, L Genny BILINGUAL HR GENERALIST Unavailable Unavailable Servage, L Genny BILINGUAL HR GENERALIST Unavailable Unavailable Servage, L Genny BILINGUAL HR GENERALIST Unavailable Unavailable Servage, L Genny BILINGUAL HR GENERALIST Unavailable Unavailable Servage, L Genny BILINGUAL HR GENERALIST Unavailable Unavailable Servage, L Genny BILINGUAL HR GENERALIST Unavailable Unavailable Servage, L Genny BILINGUAL HR GENERALIST Unavailable Unavailable Servage, L Genny BILINGUAL HR GENERALIST Unavailable Unavailable Servage, L Genny BILINGUAL HR GENERALIST Unavailable Unavailable Servage, L Genny BILINGUAL HR GENERALIST Unavailable Unavailable Servage, L Genny BILINGUAL HR GENERALIST Unavailable Unavailable Servage, L Genny BILINGUAL HR GENERALIST Unavailable Unavailable Servage, L Genny BILINGUAL HR GENERALIST Unavailable Unavailable Servage, L Genny BILINGUAL HR GENERALIST Unavailable Unavailable Servage, L Genny BILINGUAL HR GENERALIST Unavailable Unavailable Servage, L Genny BILINGUAL HR GENERALIST Unavailable Unavailable Servage, L Genny BILINGUAL HR GENERALIST Unavailable Unavailable Servage, L Genny BILINGUAL HR GENERALIST Unavailable Unavailable Servage, L Genny BILINGUAL HR GENERALIST Unavailable Unavailable Servage, L Genny BILINGUAL HR GENERALIST Unavailable Unavailable Servage, L Genny BILINGUAL HR GENERALIST Unavailable Unavailable Servage, L Genny BILINGUAL HR GENERALIST Unavailable Unavailable Servage, L Genny BILINGUAL HR GENERALIST Unavailable Unavailable Servage, L Genny BILINGUAL HR GENERALIST Unavailable Unavailable Servage, L Genny BILINGUAL HR GENERALIST Unavailable Unavailable Servage, L Genny BILINGUAL HR GENERALIST Unavailable Unavailable Servage, L Genny BILINGUAL HR GENERALIST Unavailable Unavailable Servage, L Genny BILINGUAL HR GENERALIST Unavailable Unavailable Servage, L Genny BILINGUAL HR GENERALIST Unavailable Unavailable Servage, L Genny BILINGUAL HR GENERALIST Unavailable Unavailable Servage, L Genny BILINGUAL HR GENERALIST Unavailable Unavailable Servage, L Genny BILINGUAL HR GENERALIST Unavailable Unavailable Servage, L Genny BILINGUAL HR GENERALIST Unavailable Unavailable Servage, L Genny BILINGUAL HR GENERALIST Unavailable Unavailable Servage, L Genny BILINGUAL HR GENERALIST Unavailable Unavailable Servage, L Genny BILINGUAL HR GENERALIST Unavailable Unavailable Servage, L Genny BILINGUAL HR GENERALIST Unavailable Unavailable Servage, L Genny BILINGUAL HR GENERALIST Unavailable Unavailable Servage, L Genny BILINGUAL HR GENERALIST Unavailable Unavailable Servage, L Genny BILINGUAL HR GENERALIST Unavailable Unavailable Servage, L Genny BILINGUAL HR GENERALIST Unavailable Unavailable Servage, L Genny BILINGUAL HR GENERALIST Unavailable Unavailable Servage, L Genny BILINGUAL HR GENERALIST Unavailable Unavailable Servage, L Genny BILINGUAL HR GENERALIST Unavailable Unavailable Servage, L Genny BILINGUAL HR GENERALIST Unavailable Unavailable Servage, L Genny BILINGUAL HR GENERALIST Unavailable Unavailable Servage, L Genny BILINGUAL HR GENERALIST Unavailable Unavailable Servage, L Genny BILINGUAL HR GENERALIST Unavailable Unavailable Servage, L Genny BILINGUAL HR GENERALIST Unavailable Unavailable Servage, L Genny BILINGUAL HR GENERALIST Unavailable Unavailable Servage, L Genny BILINGUAL HR GENERALIST Unavailable Unavailable Servage, L Genny BILINGUAL HR GENERALIST Unavailable Unavailable Servage, L Genny BILINGUAL HR GENERALIST Unavailable Unavailable Servage, L Genny BILINGUAL HR GENERALIST Unavailable Unavailable Servage, L Genny BILINGUAL HR GENERALIST Unavailable Unavailable Servage, L Genny BILINGUAL HR GENERALIST Unavailable Unavailable Servage, L Genny BILINGUAL HR GENERALIST Unavailable Unavailable Servage, L Genny BILINGUAL HR GENERALIST Unavailable Unavailable Servage, L Genny BILINGUAL HR GENERALIST Unavailable Unavailable Servage, L Genny BILINGUAL HR GENERALIST Unavailable Unavailable Servage, L Genny BILINGUAL HR GENERALIST Unavailable Unavailable Servage, L Genny BILINGUAL HR GENERALIST Unavailable Unavailable Servage, L Genny BILINGUAL HR GENERALIST Unavailable Unavailable Servage, L Genny BILINGUAL HR GENERALIST Unavailable Unavailable Servage, L Genny BILINGUAL HR GENERALIST Unavailable Unavailable Spencer, Kimberly PA Unavailable Unavailable [...] Vito MIKE Unavailable Unavailable LAROCK, J ABDULAZIZ BILINGUAL HR GENERALIST Unavailable Unavailable LAROCK, J ABDULAZIZ BILINGUAL HR GENERALIST Unavailable Unavailable LAROCK, J ABDULAZIZ BILINGUAL HR GENERALIST Unavailable Unavailable LAROCK, J ABDULAZIZ BILINGUAL HR GENERALIST Unavailable Unavailable LAROCK, J ABDULAZIZ BILINGUAL HR GENERALIST Unavailable Unavailable LAROCK, J ABDULAZIZ BILINGUAL HR GENERALIST Unavailable Unavailable LAROCK, J ABDULAZIZ BILINGUAL HR GENERALIST Unavailable Unavailable LAROCK, J ABDULAZIZ BILINGUAL HR GENERALIST Unavailable Unavailable LAROCK, J ABDULAZIZ BILINGUAL HR GENERALIST Unavailable Unavailable LAROCK, J ABDULAZIZ BILINGUAL HR GENERALIST Unavailable Unavailable LAROCK, J ABDULAZIZ BILINGUAL HR GENERALIST Unavailable Unavailable LAROCK, J ABDULAZIZ BILINGUAL HR GENERALIST Unavailable Unavailable LAROCK, J ABDULAZIZ BILINGUAL HR GENERALIST Unavailable Unavailable LAROCK, J ABDULAZIZ BILINGUAL HR GENERALIST Unavailable Unavailable LAROCK, J ABDLUAZIZ BILINGUAL HR GENERALIST Unavailable Unavailable LAROCK, J ABDULAZIZ BILINGUAL HR GENERALIST Unavailable Unavailable LAROCK, J ABDULAZIZ BILINGUAL HR GENERALIST Unavailable Unavailable LAROCK, J ABDULAZIZ BILINGUAL HR GENERALIST Unavailable Unavailable LAROCK, J ABDULAZIZ BILINGUAL HR GENERALIST Unavailable Unavailable LAROCK, J ABDULAZIZ BILINGUAL HR GENERALIST Unavailable Unavailable LAROCK, J ABDULAZIZ BILINGUAL HR GENERALIST Unavailable Unavailable LAROCK, J ABDULAZIZ BILINGUAL HR GENERALIST Unavailable Unavailable RING, K REMI PA Unavailable [...] is protected by Article 27-F of the [facility] Public Health law. If you continue you may have access to information: Regarding HIV / AIDS; Provided by facilities licensed or operated by the [facility] Office of Mental Health; or Provided by the [facility] Office for People With Developmental Disabilities. If such information is present, then the following [facility] mandated warning applies: This information has [...] Michelle thapa 07/26/2021 12:30:00 PM EST [facility] ([facility]) Outpatient Attender: Kimberly TAVAREZ 08:12:00 AM EST - 07/18/2021 08:12:00 AM EST [facility] Outpatient Attender: Kimberly TAVAREZ 11/2020 03:02:00 PM EDT - 06/29/2021 03:02:00 PM EDT [facility] Outpatient Attender: MIKALA TAVAREZ Physical Therapy 05/26/2021 11:00:00 AM EDT [facility] ([facility]) [place] [address] [address] 04/20/2021 12:00:00 AM EDT eCW1 ([facility]) [place] [address] [address] 04/17/2021 12:00:00 AM EDT eCW1 ([facility]) [place] [address] [address] 03/29/2021 12:00:00 AM EDT eCW1 ([facility]) [place] [address] [address] 03/07/2021 12:00:00 AM EDT eCW1 ([facility]) [place] [address] [address] 03/06/2021 12:00:00 AM EDT eCW1 ([facility]) [place] [address] [address] 03/02/2021 12:00:00 AM EDT eCW1 ([facility]) [place] [address] [address] 03/02/2021 12:00:00 AM EDT eCW1 ([facility]) Emergency Attender: Vito Thorne MDConsultant: Genny Parmar 2021 06:41:00 AM EDT - 2021 07:42:00 AM EDT [facility] Patient discharged. [place] [address] [address] 2021 12:00:00 AM EDT eCW1 ([facility]) [place] [address] [address] 02/28/2021 12:00:00 AM EDT eCW1 ([facility]) [place] [address] [address] 02/24/2021 12:00:00 AM EDT [facility] [place] [address] [address] 02/23/2021 12:00:00 AM EDT eCW1 ([facility]) [place] [address] [address] 02/22/2021 12:00:00 AM EDT eCW1 ([facility]) [place] [address] [address] 02/21/2021 12:00:00 AM EDT [facility]CW1 [facility] [place] [address] [address] 02/21/2021 12:00:00 AM EDT eCW1 ([facility]) Outpatient Attender: REMI Johnston 02/19/2021 04:55:00 PM EDT [facility] ([facility]) [place] [address] [address] 02/15/2021 12:00:00 AM EDT eCW1 ([facility]) [place] [address] [address] 01/26/2021 12:00:00 AM EDT eCW1 ([facility]) Outpatient Attender: Mandie TAVAREZ 01/24/20 03:23:07 PM EDT - 01/23/2021 04:07:31 PM EDT [facility] ([facility] ) Outpatient Attender: ABDULAZIZ JIMENEZ NP 12/25 12:05:53 PM EDT - 01/12/2021 12:58:07 PM EDT [facility] ([facility] ) Immunizations Vaccine Date Status Description Data Source(s) New in 2011. IIV4 06/29/2021 04:01:00 PM EDT completed [facility] ([facility]) Medications Medication Brand Name Start Date Product Form Dose Route Admi nistrative Instructions Pharmacy Instructions Status Indications Reaction Description Data Source(s) Naproxen 500 MG Delayed Release Oral Tablet NAPROXEN 09/2020 12:00:00 AM EST tablet,delayed release (DR/EC) 20 TAKE ONE TABLET BY MOUTH TWICE A DAY NEEDED TAKE ONE TABLET BY MOUTH TWICE A DAY NEEDED SOLD: 07/28/2021 [employer] tizanidine 4 MG Oral Tablet TIZANIDINE HCL 07/27/2021 12:00:00 AM EST tablet 14 TAKE ONE TABLET BY MOUTH EVERY 6 TO 8 HOURS NEEDED FOR MUSCLE SPASMS TAKE ONE TABLET BY MOUTH EVERY 6 TO 8 HOURS NEEDED FOR MUSCLE SPASMS SOLD: 07/28/2021 [employer] tizanidine 4 MG Oral Tablet Tizanidine HCL 07/26/2021 12:00:00 AM EST active MED[facility] ([facility]) Naproxen 500 MG Delayed Release Oral Tablet Naproxen 08/2020 12:00:00 AM EST ORAL active MEDENT ( [facility], [facility]) 50 mg 06/30/2021 12:00:00 AM EDT tablet 90 TAKE ONE TABLET BY MOUTH EVERY DAY TAKE ONE TABLET BY MOUTH EVERY DAY SOLD: 07/05/2021 [employer] Sertraline 50 MG Oral Tablet Sertraline HCL 06/29/2021 12:00:00 AM EDT ORAL active MED[facility] ([facility]) No Active Medications 06/29/2021 12:00:00 AM EDT completed [facility] ([facility]) 4 mg 06/27/2021 12:00:00 AM EDT tablet [...] FOR NAUSEA AND VOMITING SOLD: 04/06/2021 [employer] Cyclobenzaprine hydrochloride 5 MG Oral Tablet CYCLOBENZAPRI [...] DAY NEEDED FOR PAIN SOLD: 03/13/2021 [employer] Alprazolam 0.25 MG Oral Tablet ALPRAZOLAM 03/07/2021 12:00:00 AM EDT tablet 10 TAKE 1 TABLET BY MOUTH TWICE A DAY SPARI NGLY NEEDED FOR SEVERE ANXIETY MAX DAILY DOSE = 2 TABLETS TAKE 1 TABLET BY MOUTH TWICE A DAY SPARI NGLY NEEDED FOR SEVERE ANXIETY MAX DAILY DOSE = 2 TABLETS SOLD: 03/08/2021 [employer] meloxicam 15 MG Oral Tablet Meloxicam 15 MG Meloxicam 15 MG 03/02/2021 12:00:00 AM EDT 1.0 {tablet} active Meloxicam 1 5 MG [facility] 15 mg 03/02/2021 12:00:00 AM EDT tablet [...] 01/25 12:00:00 AM EDT ORAL completed [facility] ([facility]) tizanidine 4 MG Oral Tablet Tizanidine HCL 02/19/2021 12:00:00 AM EDT ORAL completed [facility] ([facility]) 10 mg 02/15/2021 12:00:00 AM EDT [...] 10 MG e CW1 ([facility]) Cyclobenzaprine hydrochloride 10 MG Oral Tablet CYCLOBENZAPR [...] rangel Policy Rangel Plan Information Medicaid S [id number] S [id number] Managed Care - Community Plan [facility] P [id number] S [id number] Medicaid S [id number] S [id number] Managed Care - Community Plan [facility] P [id number] S [id number] Medicaid S [id number] S [id number] [facility] COMM[facility] [id number] SP [id number] Managed Care - [facility] Community Plan P [id number] S [id number] Managed Care - Community Plan [facility] P [id number] S [id number] Managed Care - [facility] Community Plan P [id number] S [id number] [employer] [id number] Self [id number] Medicaid Dental O [id number] S [id number] UNHC COMMUNITY PLAN MCDO [id number] SP [id number] UNHC COMMUNITY PLAN XIX [id number] 18 [id number] [place] [id number] SP [id number] U BCBS OF [facility] [id number] [facility] [id number] SP [id number] [facility] COMMUNITY PLAN [facility] [id number] SP [id number] ANSI-Medicaid [id number] MEDICAID [id number] SP [id number] [facility](MCAID) O [id number] S [id number] Managed Care BCBS O [id number] S [id number] Problems, Conditions, and Diagnoses Code Display Name Description Problem Type Effective Dates Data Source(s) M5450 Low back pain, unspecified Low back pain, unspecified Diagnosis 07/18/2021 08:12:00 AM [facility] R1084 Generalized abdominal pain Generalized abdominal pain Diagnosis 07/18/2021 08:12:00 AM [facility] R197 Diarrhea, unspecified Diarrhea, unspecified Diagnosis 07/18/2021 08:12:00 AM [facility] R209 Unspecified disturbances of skin sensati on Unspecified disturbances of skin sensation Diagnosis 07/18/2021 08:12:00 AM [facility] Z23 Encounter for immunization Encounter for immunization Diagnosis 06/29/2021 03:02:00 PM [facility] F419 Anxiety disorder, unspecified Anxiety disorder, unspec ified Diagnosis 06/29/2021 03:02:00 PM [facility] Y9289 Other specified places as the place of o ccurrence of the external cause Other specified places as the place of occurrence of the external cause Diagnosis 2021 06:41:00 AM [facility] [id number] Overexertion from strenuous movement or load, initial encounter Overexertion from strenuous movement or load, initial encounter Diagnosis 2021 06:41:00 AM [facility] Z6835 Body mass index [BMI] 35.0-35.9, adult B hunter mass index [BMI] 35.0-35.9, adult Diagnosis 2021 06:41:00 AM EDT [facility] E669 Obesity, unspecified Obesity, unspecified Diagnosis 2021 06:41:00 AM EDT [facility] [id number] Strain of muscle, fascia and tendon of l ower back, initial encounter Strain of muscle, fascia and tendon of lower back, initial encounter Diagnosis 2021 06:41:00 AM EDT [facility] M545 Low back pain Low back pain Diagnosis 2021 06:41:00 AM EDT [facility] Z68.41 [id number] Body mass index (BMI) of 40.1 to 44.9 in adult Problem 03/06/2021 12:00:00 AM EDT [facility] F41.8 [id number] Anxiety about health Problem 02/28/2021 12:0 0:00 AM EDT [facility] ([facility]) K58.2 [id number] Irritable bowel syndrome with [facility] constipation and diarrhea Problem 02/28/2021 12:00:00 AM EDT eCW1 ([facility]) F45.8 [id number] Nervous stomach Problem 02/21/2021 12:00:00 AM EDT [facility]) K29.70 [id number] Gastritis without bl eeding, unspecified chronicity, unspecified gastritis type Problem 02/21/2021 12:00:00 AM EDT [facility] ([facility]) Z68.41 [id number] BMI 40.0-44.9, adult Problem 02/15/2021 12:0 0:00 AM EDT eC1 ([facility]) Surgeries/Procedures Procedure Description Date Indications Data Source(s) OFFICE OUTPATIENT VISIT 15 MINUTES 07/26/2021 12:00:00 AM EST [facility] ([facility]) OFFICE OUTPATIENT VISIT 15 MINUTES 07/18/2021 12:00:00 AM EST [facility] ([facility]) Brief Emotional/Behav Assessment W/ Scoring Doc Per Standard Inst 06/29/2021 12:00:00 AM EDT [facility] ([facility]) Admin Patient Focused Health Risk Assessment Instrument 06/29/2021 12:00:00 AM EDT [facility] ([facility]) OFFICE OUTPATIENT NEW 30 MINUTES 06/29/2021 12:00:00 A M EDT [facility] ([facility]) Physical Therapy Eval - Low Complexity 06/20/2021 12:0 0:00 AM EDT [facility] ([facility]) OFFICE OUTPATIENT NEW 45 MINUTES 05/26/2021 12:00:00 A M EDT [facility] ([facility]) OFFICE OUTPATIENT VISIT 15 MINUTES 02/19/2021 12:00:00 AM EDT [facility] ([facility]) Results ID Date Data Source [id number] 07/18/2021 09:05:00 AM EST [facility] ([facility]) Name Value Range Interpretation Code Description Data Meche rce(s) Supporting Document(s) Cobalamin (Vitamin B12) [Mass/volume] in Serum or Plasma 260 pg/mL 2 32-1245 [facility] ([facility]) Is patient fasting? N ID Date Data Source [id number] 07/18/2021 09:05:00 AM EST [facility] ([facility]) Name Value Range Interpretation Code Description Data Meche rce(s) Supporting Document(s) Cve Panel Laboratory test result MED[facility] ([facility]) Is patient fasting? N Cholesterol 141 mg/dL 131-200 [facility] ([facility]) Is patient fasting? N Triglycerides 56 mg/dL 35-160 [facility] ([facility]) Is patient fasting? N LDL 83 mg/dL 65-175 [facility] ([facility]) Is patient fasting? N HDL 48 mg/dL 29-86 [facility] ([facility]) Is patient fasting? N LDL/HDL 1.73 1.00-3.55 [facility] ([facility]) Is patient fasting? N Risk Factor 2.9 3.4-4.9 Below low normal [facility] ([facility]) Is patient fasting? N ID Date Data Source [id number] 07/18/2021 09:05:00 AM EST [facility] ([facility]) Name Value Range Interpretation Code Description Data Meche rce(s) Supporting Document(s) Hemoglobin A1c/Hemoglobin.total in Blood 5.2 % 4.4-6.1 [facility] ([facility]) Is patient fasting? N ID Date Data Source [id number] 07/18/2021 09:05:00 AM EST [facility] ([facility]) Name Value Range Interpretation Code Description [facility]) Comprehensive Metabo Laboratory test result MED[facility] ([facility]) Is patient fasting? N Sodium 138 meq/L 134-153 [facility] ([facility]) Is patient fasting? N Potassium 4.4 meq/L 3.6-5.0 [facility] ([facility]) Is patient fasting? N Chloride 102 meq/L 98-107 [facility] ([facility]) Is patient fasting? N Glucose 102 mg/dL 70-99 Above high normal [facility] ([facility]) Is patient fasting? N Co2 25 meq/L 22-30 [facility] ([facility]) Is patient fasting? N BUN 18 mg/dL 7-21 [facility] Is patient fasting? N Creatinine 0.8 mg/dL 0.7-1.5 [facility] ([facility]) Is patient fasting? N Total Protein 7.2 g/dL 6.3-8.2 [facility] ([facility]) Is patient fasting? N BUN/Creat 23 8-27 [facility] ([facility]) Is patient fasting? N Globulin 2.6 GM/DL 2.4-3.2 [facility] ([facility]) Is patient fasting? N Albumin 4.6 g/dL 3.9-5.0 [facility] ([facility]) Is patient fasting? N Calcium 9.4 mg/dL 8.4-10.2 [facility]) Is patient fasting? N A/G Ratio 1.8 0.8-2.0 [facility] ([facility]) Is patient fasting? N Total Bili Laboratory test result 0.2-1.3 [facility] ([facility]) Is patient fasting? N Alkaline Phos 205 U/L 38-126 Above high normal MEDE NT ([facility]) Is patient fasting? N Sgot/Ast 18 U/L 5-40 [facility] ([facility]) Is patient fasting? N SGPT/Alt 24 U/L 7-56 [facility] ([facility]) Is patient fasting? N Anion Gap 11.0 mmol/L 8.0-16.0 [facility] ([facility]) Is patient fasting? N Age 21 yrs MED[facility] ([facility]) Is patient fasting? N Non-Aa GFR Laboratory test result [facility] ([facility]) Is patient fasting? N Afr Amer GFR Laboratory test result [facility] ([facility]) Is patient fasting? N ID Date Data Source [id number] 07/18/2021 09:05:00 AM EST [facility] ([facility]) Name Value Range Interpretation Code Description Data Meche rce(s) Supporting Document(s) CBC W/Automated Diff Laboratory test result [facility] ([facility]) Is patient fasting? N RBC 5.14 10^6/uL 4.50-6.30 [facility] ([facility]) Is patient fasting? N WBC 7.4 10^3/uL 4.2-11.0 [facility] ([facility]) Is patient fasting? N Hemoglobin 15.6 g/dL 14.0-16.0 [facility] ([facility]) Is patient fasting? N Hematocrit 45.0 % 41.0-51.0 [facility] ([facility]) Is patient fasting? N MCV 87.5 fL 80.0-94.0 [facility] ([facility]) Is patient fasting? N MCH 30.4 pg 27.0-34.0 [facility] ([facility]) Is patient fasting? N RDW 12.7 % 11.5-14.8 [facility] ([facility]) Is patient fasting? N MCHC 34.7 g/dL 31.0-36.0 [facility] ([facility]) Is patient fasting? N Platelets 308 10^3/uL 150-450 [facility] ([facility]) Is patient fasting? N MPV 9.5 fL 7.4-10.4 [facility] ([facility]) Is patient fasting? N Neut 53.9 % 37.0-80.0 [facility] ([facility]) Is patient fasting? N Lymph 31.0 % 25.0-40.0 [facility] ([facility]) Is patient fasting? N [place] 12.6 % 3.0-8.0 Above high normal MED[facility] ([facility]) Is patient fasting? N Eos 1.0 % 0.0-7.0 [facility] ([facility]) Is patient fasting? N Baso 0.8 % 0.0-2.0 [facility] [facility]) Is patient fasting? N %Ig 0.7 % 0.0-0.0 Above high normal MEDENT ([facility]) Is patient fasting? N %NRBC 0.0 % 0.0-0.0 MED[facility] ([facility]) Is patient fasting? N #Neut 3.97 10^3/uL 2.00-6.90 MEDENT ([facility]) Is patient fasting? N #Lymph 2.28 10^3/uL 0.60-3.40 MEDENT ([facility]) Is patient fasting? N #[place] 0.93 10^3/uL 0.00-0.90 Above high normal MEDEN T ([facility]) Is patient fasting? N #Baso 0.06 10^3/uL 0.00-0.20 MEDENT ([facility]) Is patient fasting? N #Eos 0.07 10^3/uL 0.00-0.70 MED[facility] ([facility]) Is patient fasting? N #Ig 0.05 10^3/uL 0.00-0.10 [facility] ([facility]) Is patient fasting? N #NRBC 0.00 10^3/uL 0.00-0.00 [facility] ([facility]) Is patient fasting? N RBC Morph Laboratory test result MED[facility] ([facility]) Is patient fasting? N Manual Diff Laboratory test result M EDENT ([facility]) Is patient fasting? N ID Date Data Source [id number] 07/18/2021 09:05:00 AM EST MEDENT ([facility]) Name Value Range Interpretation Code Description Data Meche rce(s) Supporting Document(s) Thyrotropin [Units/volume] in Serum or Plasma 2.81 uIU/mL 0.47-5.01 MEDENT ([facility]) Is patient fasting? N ID Date Data Source [id number] 07/18/2021 12:52:00 PM [facility] Name Value Range Interpretation Code Description Data Meche rce(s) Supporting Document(s) Cobalamin (Vitamin B12) [Mass/volume] in Serum or Plasma 260 PG/ML 232 - 1245 [facility] ID Date Data Source [id number] 07/18/2021 12:52:00 PM [facility] Name Value Range Interpretation Code Description Data Meche rce(s) Supporting Document(s) Thyrotropin [Units/volume] in Serum or Plasma by Detec tion limit <= 0.05 mIU/L 2.81 uIU/mL 0.47 - 5.01 [facility] ID Date Data Source [id number] 07/18/2021 12:34:00 PM [facility] Name Value Range Interpretation Code Description Data Meche rce(s) Supporting Document(s) Hemoglobin A1c/Hemoglobin.total in Blood 5.2 % 4.4 - 6.1 [facility] {A1]{HB] ID Date Data Source [id number] 07/18/2021 12:29:00 PM [facility] Name Value Range Interpretation Code Description Data Meche rce(s) Supporting Document(s) [facility] Cholesterol [Mass/volume] in Serum or Plasma 141 MG/DL 131 - 200 [facility] Deprecated Triglyceride [Mass/volume] in Serum or Plasma 56 MG/DL 3 5 - 160 [facility] HDL 48 MG/DL 29 - 86 [facility] Cholesterol in LDL [Mass/volume] in Serum or Plasma by Direc t assay 83 mg/dL 65 - 175 [facility] Cholesterol.total/Cholesterol in HDL [Mass Ratio] in Serum o r Plasma 2.9 3.4 - 4.9 L [facility] LDL/HDL 1.73 1.00 - 3.55 [facility] CVE RISK CHOL/HDL LDL/HDLMEN: 1/2 AVERAGE 3.43 1.00 AVERAGE 4.97 3.55 2X AVERAGE 9.55 6.25 3X AVERAGE 23.99 7.99WOMEN: 1/2 AVERAGE 3.27 1.47 AVERAGE 4.44 3.22 2X AVERAGE 7.05 5.03 3X AVERAGE 11.04 6.14 ID Date Data Source [id number] 07/18/2021 12:29:00 PM EST [facility] Name Value Range Interpretation Code Description Data Meche rce(s) Supporting Document(s) COMPREHENSIVE METABOLIC PANEL [facility] COMPREHENSIVE METABOLIC PANEL Sodium [Moles/volume] in Serum or Plasma 138 mEq/L 134 - 153 [facility] Potassium [Moles/volume] in Serum or Plasma 4.4 mEq/L 3.6 - 5.0 [facility] Chloride [Moles/volume] in Serum or Plasma 102 mEq/L 98 - 107 [facility] Carbon dioxide, total [Moles/volume] in Serum or Plasma 25 MEQ/L 22 - 30 [facility] Glucose [Mass/volume] in Serum or Plasma 102 MG/DL 70 - 99 H [facility] BUN 18 MG/DL 7 - 21 [facility] Creatinine [Mass/volume] in Serum or Plasma 0.8 MG/DL 0.7 - 1.5 [facility] BUN/CREAT 23 8 - 27 [facility] Protein [Mass/volume] in Serum or Plasma 7.2 G/DL 6.3 - 8.2 [facility] Albumin [Mass/volume] in Serum or Plasma 4.6 G/DL 3.9 - 5.0 [facility] Globulin [Mass/volume] in Serum by calculation 2.6 GM/DL 2.4 - 3.2 [facility] A/G RATIO 1.8 0.8 - 2.0 [facility] Calcium [Mass/volume] in Serum or Plasma 9.4 MG/DL 8.4 - 10.2 [facility] Bilirubin.total [Mass/volume] in Serum or Plasma <0.7 MG/DL 0.2 - 1.3 [facility] Alkaline phosphatase [Enzymatic activity/volume] in Serum or Plasma 205 U/L 38 - 126 H [facility] Aspartate aminotransferase [Enzymatic activity/volume] in Serum or Plasma 18 U/L 5 - 40 [facility] Alanine aminotransferase [Enzymatic activity/volume] in Seru m or Plasma 24 U/L 7 - 56 [facility] Anion gap 3 in Serum or Plasma 11.0 mmol/L 8.0 - 16.0 [facility] AGE 21 yrs [facility] [...] >32 mL/min Normal ID Date Data Source [id number] 07/18/2021 12:03:00 PM EST [facility] Name Value Range Interpretation Code Description Data Meche rce(s) Supporting Document(s) CBC W/AUTOMATED DIFF [facility] COMPLETE BLOOD COUNT Leukocytes [#/volume] in Blood by Automated count 7.4 10^3/uL 4.2 - 1 1.0 [facility] Erythrocytes [#/volume] in Blood by Automated count 5.14 10^6/uL 4. 50 - 6.30 [facility] Hemoglobin [Mass/volume] in Blood 15.6 g/dL 14.0 - 16.0 [facility] Hematocrit [Volume Fraction] of Blood by Automated count 45.0 % 4 1.0 - 51.0 [facility] Erythrocyte mean corpuscular volume [Entitic volume] by Auto mated count 87.5 fL 80.0 - 94.0 [facility] Erythrocyte mean corpuscular hemoglobin [Entitic mass] by Automated count 30.4 pg 27.0 - 34.0 [facility] Erythrocyte mean corpuscular hemoglobin concentration [Mass/volume] by Automated count 34.7 g/dL 31.0 - 36.0 [facility] Erythrocyte distribution width [Ratio] by Automated count 12.7 % 11.5 - 14.8 [facility] Platelets [#/volume] in Blood by Automated count 308 10^3/uL 150 - 45 0 [facility] Platelet mean volume [Entitic volume] in Blood by Automated count 9.5 fL 7.4 - 10.4 [facility] Neutrophils/100 leukocytes in Blood by Automated count 53.9 % 37. 0 - 80.0 [facility] Lymphocytes/100 leukocytes in Blood by Manual count 31.0 % 25.0 - 40.0 [facility] Monocytes/100 leukocytes in Blood by Automated count 12.6 % 3.0 - 8.0 H [facility] Eosinophils/100 leukocytes in Blood by Automated count 1.0 % 0.0 - 7.0 [facility] Basophils/100 leukocytes in Blood by Automated count 0.8 % 0.0 - 2.0 [facility] %IG 0.7 % 0.0 - 0.0 [facility] %NRBC 0.0 % 0.0 - 0.0 [facility] Neutrophils [#/volume] in Blood by Automated count 3.97 10^3/uL 2.00 - 6.90 [facility] Lymphocytes [#/volume] in Blood by Automated count 2.28 10^3/uL 0.60 - 3.40 [facility] Monocytes [#/volume] in Blood by Automated count 0.93 10^3/uL 0.00 - 0.90 H [facility] Eosinophils [#/volume] in Blood by Automated count 0.07 10^3/uL 0.00 - 0.70 [facility] Basophils [#/volume] in Blood by Automated count 0.06 10^3/uL 0.00 - 0.20 [facility] #IG 0.05 10^3/uL 0.00 - 0.10 [facility] #NRBC 0.00 10^3/uL 0.00 - 0.00 [facility] MANUAL DIFF NOT INDICATED [facility] RBC MORPH NOT INDICATED [facility] ID Date Data Source [id number] 06/27/2021 05:36:00 PM EDT [facility] ([facility] ) Name Value Range Interpretation Code Description Data [facility]s) Gastrointestinal (GI) Panel Laboratory test result [facility] ([facility]) This Gastrointestinal PCR Panel detects the following [...] NUCLEIC ACID PCR ID Date Data Source [id number] 03/22/2021 04:52:00 PM EDT [facility] Name Value Range Interpretation Code Description Data Meche e(s) Supporting Document(s) SARS coronavirus 2 RNA [Presence] in Res piratory specimen by CARA with probe detection NEGATIVE [facility] This lab was ordered by [facility] a nd reported by [facility]. ID Date Data Source [id number] 03/07/2021 03:15:00 PM EDT [facility] Name Value Range Interpretation Code Description Data Meche rce(s) Supporting Document(s) SARS coronavirus 2 RNA [Presence] in Res piratory specimen by CARA with probe detection NEGATIVE [facility] This lab was ordered by [facility] a nd reported by [facility]. ID Date Data Source [id number] 2021 06:41:00 AM EDT [facility] 1 OrderSheet [facility] Emergency Department [address] [place] [address] Phone #: ext- [phone] 06:39 Patient: [...] rce(s) Supporting Document(s) ID Date Data Source [id number] 2021 06:41:00 AM EDT [facility] 1 Medication Reconciliation Report [facility] Emergency Department [address] [place] [address] Phone #: [phone] 2021 06:39 Patient: NA DEWEY Sex: M [...] Dispense 7patch. Refills: 0. Substitution permitted.Pharmacy - [email or web address][id number] - [id number] ; [place], [place] [id number]. . -- Pablito Ambriz M.D. Name Value Range Interpretation Code Description Data [facility](s) Supporting Document(s) ID Date Data Source [id number] 2021 06:41:00 AM EDT [facility] 1 Medication Administration Record [facility] Emergency Department [address] [place] [address] Phone #: ext- [phone] 06:39 Patient: [...] rce(s) Supporting Document(s) ID Date Data Source [id number] 2021 06:41:00 AM EDT [facility] 1 General Instructions [facility] Emergency Department [address] [place] [address] Phone #: [phone]- [phone] 06:39 Patient: NA DEWEY Sex: M [...] until better.(PLEASE CONTINUE THE NAPROSYN OBTAINED FROM [facility] ER THE OTHER DAY ASPRESCRIBED;PLEASE FOLLOW UP [...] Dispense 7patch. Refills: 0. Substitution permitted.Pharmacy - [email or web address][id number] - [id number] ; [place], [place] [phone]. .Follow-up:Return to the emergency department as needed. [...] of care. ADDITIONAL INFORMATION 2 General Instructions [facility] Emergency Department [address] [place] [address] Phone #: ext- [phone] 06:39 Patient: [...] cause the pain. Mechanical 3 General Instructions [facility] Emergency Department [address] [place] [address] Phone #: ext- [phone] 06:39 Patient: [...] to protect your skin. 4 General Instructions [facility] Emergency Department [address] [place] [address] Phone #: ext- [phone] 06:39 Patient: [...] or are takingother medicines. You may use [id number] medicine as directed on the bottle to [...] bowel or bladder control 5 General Instructions [facility] Emergency Department [address] [place] [address] Phone #: ext- [phone] 06:39 Patient: NA DEWEY Sex: Suzy : 2000 Age: 21yWhen to seek medical adviceCall your healthcare provider right away if any of these occur: Pain becomes worse or spreads to your legs Weakness or numbness in one or both legs Numbness in the groin or genital area 1985-1399 [employer]. [address] [place] [address]. All rights reserved. This information is not [...] rce(s) Supporting Document(s) ID Date Data Source [id number] 2021 06:41:00 AM EDT [facility] 1 Clinical Report - Nurses [facility] Emergency Department [address] [place] [address] Phone #: ext- [phone] 06:39 Patient: NA DEWEY Sex: Suzy : 2000 Age: 21yTRIAGEArrived by private vehicle. Historian: patient.Triage t manjit: 06:40 2021.Chief Complaint: BACK PAIN.Onset. (2 weeks ago). No history of recent trauma.Treatment MEDICAID BILLING SPECIALIST:Recently seen in the ED; seen for similar symptoms; CT done; treatment- pain medication. (Saturday ([facility])Took Naproxen last yesterday at 8pm). --06:42 03/01/21 Lara Noonan R.N.Acuity: LEVEL 4.SEPSIS SCREEN: SEPSIS SCREEN NEGATIVE. No suspected or confirmed signs of infection present.--06:44 03/01/21 Lara Noonan R.N.06:43 03/01/21. BP: 142/90. MAP: 107. HR: 81. RR: 16. O2 saturation: 96%. Temp: 97.5 F. Pain levelnow: 05/05. --06:44 03/01/21 Lara Noonan R.N.Treatment MEDICAID BILLING SPECIALIST:(Saw his PCP on ). --06:45 03/01/21 Lara [...] known surgeries. 2 Clinical Report - Nurses [facility] Emergency Department [address] [place] [address] Phone #: ext- [phone] 06:39 Patient: [...] Treviño RN 3 Clinical Report - Nurses [facility] Emergency Department [address] [place] [address] Phone #: ext- [phone] 06:39 Patient: NA DEWEY Sex: M : 2000 Age: 21y Departure time: 07:42 2021. 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, not good historian, states saw his FORENSIC SCIENCE TECHNICIAN for this in [place] and went to [facility] ER last week, got nml CT done [...] HISTORY 2 Clinical Report - Physicians/Mid Levels [facility] Emergency Department [address] [place] [address] Phone #: [phone] 06:39 Patient: NA DEWEY Sex: M [...] findings on exam; pt had nmlCT at [facility] ER last week; pt has Naprosyn at home from ER visit; pt will be given Lidocaine patch andadvised to f/u w FORENSIC SCIENCE TECHNICIAN for further care such as PT and/or [...] (mild). 3 Clinical Report - Physicians/Mid Levels [facility] Emergency Department [address] [place] [address] Phone #: ext- [phone] 06:39 [id number] Sex: Suzy : 2000 Age: 21yINSTRUCTIONS Apply [...] better. (PLEASE CONTINUE THE NAPROSYN OBTAINED FROM [facility] ER THE OTHER DAY PRESCRIBED; PLEASE FOLLOW [...] patch. Refills: 0. Substitution permitted. Pharmacy - [email or web address]08 - [id number] ; [place], [place] [phone]. Phone: . Follow-up: Return to the emergency [...] Never Smoker completed Never S [place] [facility]) Vital Signs ID Date Data Source UNK Name Value Range Interpretation Code Description Data Source(s) Systolic blood pressure 131 mm[Hg] 131 mm[Hg] [facility] Diastolic blood pressure 85 mm[Hg] 85 mm[Hg] [facility] ([facility]) Heart rate 115 /min 115 /min [facility] ([facility], [facility]) Respiratory rate 16 /min 16 /min [facility] Oxygen saturation in Arterial blood by Pulse oximetry 99 % 99 % [facility] ([facility]) Body temperature 98.9 [degF] 98.9 [degF] [facility] Body weight 250.00 [lb_av] 250.00 [lb_av] [facility] T ([facility]) Body height 66 [in_i] 66 [in_i] [facility] ([facility]) 5'6" Body mass index (BMI) [Ratio] 40.3 kg/m2 40.3 k g/m2 [facility] ([facility]) Oxygen saturation in Arterial blood by Pulse oximetry 98 % 98 % [facility] ([facility]) Body weight 252.00 [lb_av] 252.00 [lb_av] MEDEN T ([facility]) Body weight 114.307 kg 114.307 kg [facility] ([facility]) Body height 66 [in_i] 66 [in_i] [facility] ([facility]) 5'6" Body mass index (BMI) [Ratio] 40.7 kg/m2 40.7 k g/m2 [facility] ([facility]) Body surface area Derived from formula 2.21 m2 2.21 m2 [facility] ([facility]) Respiratory rate 16 /min 16 /min [facility]) Systolic blood pressure 128 mm[Hg] 128 mm[Hg] [facility] Diastolic blood pressure 84 mm[Hg] 84 mm[Hg] [facility] ([facility]) Heart rate 104 /min 104 /min [facility] ([facility]) Body temperature 97.3 [degF] 97.3 [degF] [facility] ([facility]) Body surface area Derived from formula 2.17 m2 2.17 m2 [facility] ([facility]) Diastolic blood pressure 82 mm[Hg] 82 mm[Hg] [facility] ([facility]) Body temperature 97.8 [degF] 97.8 [degF] [facility] ([facility]) Body weight 242.12 [lb_av] 242.12 [lb_av] MEDEN T ([facility]) Body weight 109.828 kg 109.828 kg [facility] ([facility]) Body mass index (BMI) [Ratio] 39.1 kg/m2 39.1 k g/m2 [facility] ([facility]) Systolic blood pressure 122 mm[Hg] 122 mm[Hg] M EDENT ([facility]) Heart rate 100 /min 100 /min [facility] ([facility]) Respiratory rate 16 /min 16 /min [facility] ( [facility]) Oxygen saturation in Arterial blood by Pulse oximetry 98 % 98 % [facility] ([facility]) Body height 66 [in_i] 66 [in_i] [facility] ([facility]) 5'6" Body mass index (BMI) [Ratio] 37.9 kg/m2 37.9 k g/m2 [facility] ([facility] ) Body height 66 [in_i] 66 [in_i] [facility] ([facility] ) 5'6" Body weight 235.00 [lb_av] 235.00 [lb_av] MEDEN T ([facility] ) Body temperature 97.3 [degF] 97.3 [degF] [facility] ([facility] ) Body weight 214.0 [lb_av] 214.0 [lb_av] eCW1 ([facility]) Body height [in_i] eCW1 ([facility]) Body mass index (BMI) [Ratio] 41.79 kg/m2 41.79 kg/m2 [facility]CW1 ([facility]) Heart rate 90 /min 90 /min eCW1 ([facility]) Respiratory rate 18 /min 18 /min eCW1 ([facility]) Body temperature 98.7 [degF] 98.7 [degF] eCW1 ( [facility]) Systolic blood pressure 120 mm[Hg] 120 mm[Hg] e CW1 ([facility]) Diastolic blood pressure 80 mm[Hg] 80 mm[Hg] eCW1 ([facility]) Body weight 215.6 [lb_av] 215.6 [lb_av] eCW1 ([facility]) Body height [in_i] eCW1 ([facility]) Body mass index (BMI) [Ratio] 42.10 kg/m2 42.10 kg/m2 eCW1 ([facility]) Heart rate 100 /min 100 /min eCW1 ([facility]) Respiratory rate 18 /min 18 /min eCW1 ([facility]) Body temperature 98.4 [degF] 98.4 [degF] eCW1 ( [facility]) Systolic blood pressure 120 mm[Hg] 120 mm[Hg] e CW1 ([facility]) Diastolic blood pressure 80 mm[Hg] 80 mm[Hg] eCW1 ([facility]) Body weight 216.2 [lb_av] 216.2 [lb_av] eCW1 ([facility]) Body height [in_i] eCW1 ([facility]) Body mass index (BMI) [Ratio] 42.22 kg/m2 42.22 kg/m2 eCW1 ([facility]) Heart rate 90 /min 90 /min eCW1 ([facility]) Respiratory rate 18 /min 18 /min eCW1 ([facility]) Body temperature 98 [degF] 98 [degF] eCW1 ([facility]) Systolic blood pressure 130 mm[Hg] 130 mm[Hg] e CW1 ([facility]) Diastolic blood pressure 60 mm[Hg] 60 mm[Hg] eCW1 ([facility]) Body weight 215.0 [lb_av] 215.0 [lb_av] eCW1 ([facility]) Diastolic blood pressure 80 mm[Hg] 80 mm[Hg] eCW1 ([facility]) Body height [in_i] eCW1 ([facility]) Body mass index (BMI) [Ratio] 41.98 kg/m2 41.98 kg/m2 eCW1 ([facility]) Heart rate 88 /min 88 /min eCW1 ([facility]) Respiratory rate 18 /min 18 /min eCW1 ([facility]) Body temperature 98.7 [degF] 98.7 [degF] eCW1 ( [facility]) Systolic blood pressure 118 mm[Hg] 118 mm[Hg] e CW1 ([facility]) Systolic blood pressure 131 mm[Hg] 131 mm[Hg] M EDENT ([facility] [facility], [facility]) Diastolic blood pressure 91 mm[Hg] 91 mm[Hg] MEDENT ([place] [facility], [facility]) Heart rate 89 /min 89 /min MED[facility] ([facility], [facility]) Respiratory rate 14 /min 14 /min MED[facility] ( [place] [facility], [facility]) Oxygen saturation in Arterial blood by Pulse oximetry 98 % 98 % [facility] ([place] [facility], [facility]) Body temperature 97.8 [degF] 97.8 [degF] MED[facility] ([facility], [facility]) Body weight 220.00 [lb_av] 220.00 [lb_av] MEDEN T ([facility] [facility], [facility]) Body height 67 [in_i] 67 [in_i] MEDENT ([facility], [facility]) 5'7" Body mass index (BMI) [Ratio] 34.5 kg/m2 34.5 k g/m2 [facility] ([facility] [facility], [facility]) Body weight 220.8 [lb_av] 220.8 [lb_av] eCW1 ([facility]) Body temperature 98.6 [degF] 98.6 [degF] eCW1 ( [facility]) Systolic blood pressure 128 mm[Hg] 128 mm[Hg] e CW1 ([facility]) Diastolic blood pressure 80 mm[Hg] 80 mm[Hg] eCW1 ([facility]) Body height [in_i] eCW1 ([facility]) Body mass index (BMI) [Ratio] 43.12 kg/m2 43.12 kg/m2 eCW1 ([facility]) Heart rate 90 /min 90 /min eCW1 ([facility]) Respiratory rate 18 /min 18 /min eCW1 ([facility]) Patient Treatment Plan of Care Planned Activity [...]
[2021-07-30] MEDS ORDERED: ACETAMINOPHEN 500 MG TAB PO ONE (17:45)
[2021-07-30] MEDS ORDERED: LIDOCAINE 5% (LIDODERM) PATCH TD ONE (17:45)
--- NOTE | 2021-07-30 18:48 | REPVR ---
PROCEDURE INFORMATION: Exam: CT Lumbar Spine Without Contrast Exam date and time: 07/30/2021 5:56 PM Age: 21 years old Clinical indication: Other: Fall on ice 3 weeks ago, pain down into R leg TECHNIQUE: Imaging protocol: Computed tomography images of the lumbar spine without contrast. Radiation optimization: All CT scans at this facility use at least one of these dose optimization techniques: automated exposure control; mA and/or kV adjustment per patient size (includes targeted exams where dose is matched to clinical indication); or iterative reconstruction. COMPARISON: [facility] Spine. Lumbosacral, complete 03/12/2021 5:21 PM FINDINGS: Vertebrae: No acute fracture. Normal alignment. L1-L2: No significant disc protrusion. No severe spinal canal stenosis. No significant neural foraminal narrowing. L2-L3: No significant disc protrusion. No severe spinal canal stenosis. No significant neural foraminal narrowing. L3-L4: No significant disc protrusion. No severe spinal canal stenosis. No significant neural foraminal narrowing. L4-L5: Minimal annular bulge L4-L5 without spinal stenosis. L5-S1: Asymmetric bulging annulus right greater than left at L5-S1 with possible minimal impingement on the right S1 nerve root. Soft tissues: Unremarkable. IMPRESSION: 1. Minimal annular bulge L4-L5 without spinal stenosis. 2. Asymmetric bulging annulus right greater than left at L5-S1 with possible minimal impingement on the right S1 nerve root. Electronically signed by: Jed Maurice On 07/30/2021 18:48:15 PM
[2021-07-30] MEDS ORDERED: METH-1164 PO (18:53)
[2021-07-30] MEDS ORDERED: LIDO5DIS41 TD (18:53)
[2021-07-30 19:06] VITALS: BP 137/62
[2021-07-30] MEDS ORDERED: **NOTE PATIENT COMMENT** MISC XX SCH (21:00)
== END 2021-07-30 19:06 | disposition home or self-care (01) ==
LOC: M ED 14:26
DX: M51.27 Other intervertebral disc displacement, lumbosacral region (principal); Z91.030 Bee allergy status

== ENCOUNTER → 2021-10-26 | Outpatient (CLI) | payer OTHER ==
[~2021-10-26] MED LIST changes: -OMEP-221 PO; +OMEP40CA5 PO; +TIZA10TA PO; -TIZA4TAB4 PO
[2021-10-26 17:53] LABS: ALT/SGPT 31 U/L (12-78); BILIRUBIN,DIRECT 0.1 MG/DL (0.0-0.2); BILIRUBIN,TOTAL 0.3 MG/DL (0.2-1.0); IRON (FE) 71 UG/DL (65-175); PERCENT SATURATION 20.5 % (19.7-50.0); TOTAL IRON BINDING CAPACITY 347 UG/DL (250-450); TOTAL PROTEIN 7.5 GM/DL (6.4-8.2)
[2021-10-26 18:06] LABS: HEPATITIS B SURFACE ANTIGEN NEGATIVE (NEGATIVE)
[2021-10-26 21:26] LABS: HEPATITIS B CORE ANTIBODY IGM NEGATIVE (NEGATIVE)
== END ==
LOC: M LAB 16:05
PROVIDERS: ATTEND Internal Medicine Gastroenterology
DX: R19.7 Diarrhea, unspecified (principal); K58.0 Irritable bowel syndrome with diarrhea

== ENCOUNTER → 2021-10-30 | Outpatient (CLI) | payer OTHER | LOC: M LABSMTC 11:00 | PROVIDERS: ATTEND Anesthesiology | DX: Z01.818 Encounter for other preprocedural examination (principal); Z11.52 Encounter for screening for COVID-19 ==

== ENCOUNTER 2021-11-03 08:31 | Day surgery (SDC) | payer OTHER ==
[~2021-11-03] VITALS: Ht 167.6 cm; Wt 111.0 kg
[~2021-11-03 08:31] MED LIST changes: +NS 1,000 ML IV ONE
[2021-11-03] MEDS ORDERED: propofoL 200 MG/20 ML VIAL As Ordered ONE (10:40)
[2021-11-03] MEDS ORDERED: LIDOCAINE 2% 100MG/5ML SDV (FOR ANES.) As Ordered ONE (10:40)
[2021-11-03 10:55] VITALS: BP 156/90
== END 2021-11-03 11:06 | disposition home or self-care (01) ==
LOC: M OPP 08:31
PROVIDERS: ATTEND Internal Medicine Gastroenterology
DX: K58.0 Irritable bowel syndrome with diarrhea (principal); K63.89 Other specified diseases of intestine; R19.7 Diarrhea, unspecified; Z91.030 Bee allergy status

== ENCOUNTER 2021-12-08 19:03 | Emergency (ER) | payer OTHER ==
[~2021-12-08] VITALS: Ht 165.1 cm; Wt 111.7 kg
[~2021-12-08 19:03] MED LIST changes: -NS 1,000 ML IV ONE
[2021-12-08 19:18] VITALS: BP 133/91
[2021-12-08] MEDS ORDERED: ISOVUE-370 76% 100ML VIAL As Ordered ONE ×2 (21:54→23:43)
[2021-12-08 22:46] LABS: BASO % 0.4 % (0.0-1.0); EOS % 0.3 % (0.0-3.0); HEMATOCRIT 46.6 % (42.0-52.0); HEMOGLOBIN 16.4 g/dl (13.5-17.5); LYMPH # 2.7 10^3/uL (1.5-5.0); MEAN CORPUSCULAR HEMOGLOBIN 30.4 pg (27.0-33.0); MEAN CORPUSCULAR HGB CONC 35.2 g/dl (32.0-36.5); MEAN CORPUSCULAR VOLUME 86.5 fl (80.0-96.0); MONO # 0.9 10^3/uL (0.0-0.8); MONO % 9.6 % (2.0-8.0); NEUTROPHILS # 5.4 10^3/uL (1.5-8.5); NEUTROPHILS % 59.5 % (36.0-66.0); PLATELET COUNT, AUTOMATED 301 10^3/uL (150-450); RED BLOOD COUNT 5.39 10^6/uL (4.30-6.10)
[2021-12-08 23:28] LABS: ALT/SGPT 42 U/L (12-78); BILIRUBIN,DIRECT 0.1 MG/DL (0.0-0.2); BILIRUBIN,TOTAL 0.5 MG/DL (0.2-1.0); BLOOD UREA NITROGEN 9 MG/DL (7-18); CALCIUM LEVEL 9.3 MG/DL (8.5-10.1); CARBON DIOXIDE LEVEL 24 MEQ/L (21-32); CHLORIDE LEVEL 108 MEQ/L (98-107); CREATININE FOR GFR 0.82 MG/DL (0.70-1.30); GLOMERULAR FILTRATION RATE > 60.0 (>60); GLUCOSE, FASTING 99 MG/DL (70-100); POTASSIUM SERUM 3.9 MEQ/L (3.5-5.1); SODIUM LEVEL 139 MEQ/L (136-145); TOTAL PROTEIN 7.3 GM/DL (6.4-8.2)
[2021-12-09] MEDS ORDERED: FLOM0.4C39 PO (01:29)
== END 2021-12-09 01:40 | disposition home or self-care (01) ==
LOC: M ED 19:03
DX: R33.9 Retention of urine, unspecified (principal); G89.29 Other chronic pain; M54.50 Low back pain, unspecified; F90.9 Attention-deficit hyperactivity disorder, unspecified type
CPT/HCPCS: 36415; 74177; 80048; 80076; 81001; 85025; 99284; Q9967

== ENCOUNTER 2021-12-15 13:40 | Emergency (ER) | payer OTHER ==
[~2021-12-15] VITALS: Ht 167.6 cm; Wt 112.1 kg
[~2021-12-15 13:40] MED LIST changes: +FLOM0.4C39 PO
[2021-12-15 17:28] VITALS: BP 133/85
== END 2021-12-15 19:38 | disposition home or self-care (01) ==
LOC: M ED 13:40
DX: R09.89 Other specified symptoms and signs involving the circulatory and respiratory systems (principal); Z91.030 Bee allergy status

== ENCOUNTER 2022-01-05 15:50 | Emergency (ER) | payer OTHER ==
[~2022-01-05] VITALS: Ht 165.1 cm; Wt 115.9 kg
[2022-01-05 18:55] LABS: BASO % 0.2 % (0.0-1.0); HEMATOCRIT 46.9 % (42.0-52.0); HEMOGLOBIN 16.3 g/dl (13.5-17.5); LYMPH # 0.6 10^3/uL (1.5-5.0); LYMPH % 3.2 % (24.0-44.0); MEAN CORPUSCULAR HEMOGLOBIN 30.2 pg (27.0-33.0); MEAN CORPUSCULAR HGB CONC 34.8 g/dl (32.0-36.5); MEAN CORPUSCULAR VOLUME 86.9 fl (80.0-96.0); MONO # 0.9 10^3/uL (0.0-0.8); MONO % 4.4 % (2.0-8.0); NEUTROPHILS # 18.1 10^3/uL (1.5-8.5); NEUTROPHILS % 91.6 % (36.0-66.0); PLATELET COUNT, AUTOMATED 314 10^3/uL (150-450); WHITE BLOOD COUNT 19.8 10^3/uL (4.0-10.0)
[2022-01-05 19:18] LABS: ALBUMIN 4.2 GM/DL (3.2-5.2); ALT/SGPT 27 U/L (12-78); BILIRUBIN,DIRECT 0.2 MG/DL (0.0-0.2); BILIRUBIN,TOTAL 0.6 MG/DL (0.2-1.0); BLOOD UREA NITROGEN 20 MG/DL (7-18); CALCIUM LEVEL 9.3 MG/DL (8.5-10.1); CARBON DIOXIDE LEVEL 27 MEQ/L (21-32); CHLORIDE LEVEL 106 MEQ/L (98-107); CREATININE FOR GFR 1.04 MG/DL (0.70-1.30); GLOMERULAR FILTRATION RATE > 60.0 (>60); GLUCOSE, FASTING 110 MG/DL (70-100); LIPASE 70 U/L (73-393); SODIUM LEVEL 138 MEQ/L (136-145); TOTAL PROTEIN 7.8 GM/DL (6.4-8.2)
[2022-01-05] MEDS ORDERED: ONDANSETRON 4MG/2ML VIAL IV ONE (20:25)
[2022-01-05] MEDS ORDERED: KETOROLAC 30 MG/ML 1ML VIAL IV ONE (20:25)
[2022-01-05] MEDS ORDERED: NS 1,000 ML IV ONE (20:25)
[2022-01-05] MEDS ORDERED: ISOVUE-370 76% 100ML VIAL As Ordered ONE (20:26)
[2022-01-05] MEDS ORDERED: ONDANSETRON 4MG ORAL DISINTEGRATING TAB PO ONE (22:40)
[2022-01-05] MEDS ORDERED: ONDA4TAB6 PO (22:41)
[2022-01-05 22:56] VITALS: BP 138/79
== END 2022-01-05 22:59 | disposition home or self-care (01) ==
LOC: M ED 15:50
DX: R11.2 Nausea with vomiting, unspecified (principal); R19.7 Diarrhea, unspecified; Z91.030 Bee allergy status
CPT/HCPCS: 74177; 80048; 80076; 81001; 83690; 85025; 96361; 96374; 96375; 99284; J1885; J2405; Q9967

== ENCOUNTER → 2022-01-24 | Outpatient (REF) | payer OTHER ==
[2022-01-24 14:00] LABS: APPEARANCE, URINE CLEAR (CLEAR); BACTERIA, URINE AUTO NEGATIVE (NEGATIVE); BILIRUBIN, URINE AUTO NEGATIVE (NEGATIVE); BLOOD, URINE BLOOD NEGATIVE (NEGATIVE); COLOR, URINE COLORLESS (YELLOW); GLUCOSE, URINE (UA) AUTO NEGATIVE (NEGATIVE); KETONE, URINE AUTO NEGATIVE (NEGATIVE); LEUKOCYTE ESTERASE, URINE AUTO NEGATIVE (NEGATIVE); MUCUS, URINE SMALL (NEGATIVE); NITRITE, URINE AUTO NEGATIVE (NEGATIVE); PROTEIN, URINE AUTO NEGATIVE (NEGATIVE); RBC, URINE AUTO 0 /HPF (0-3); SPECIFIC GRAVITY URINE AUTO 1.002 (1.002-1.035); SQUAMOUS EPITHELIAL CELL UR AU 0 /HPF (0-6); UROBILINOGEN, URINE AUTO 0.2 mg/dL (0.0-2.0); WBC, URINE AUTO 0 /HPF (0-3)
== END ==
LOC: M SMT 13:02
PROVIDERS: ATTEND Physician Assistant
DX: R10.30 Lower abdominal pain, unspecified (principal)

== ENCOUNTER 2022-03-01 09:20 | Emergency (ER) | payer OTHER ==
[~2022-03-01] VITALS: Ht 167.6 cm; Wt 111.0 kg
[2022-03-01] MEDS ORDERED: ACET-910 PO (10:19)
[2022-03-01] MEDS ORDERED: NYSTATIN 100,000 UNITS/GM TOPICAL PWD 15 GM TOP STA (11:26)
[2022-03-01] MEDS ORDERED: ONDANSETRON 4MG 2ML VIAL IV ONE (11:30)
[2022-03-01] MEDS ORDERED: KETOROLAC 30 MG/ML 1ML VIAL IV ONE (11:30)
[2022-03-01 12:48] LABS: BASO % 0.4 % (0.0-1.0); EOS % 0.2 % (0.0-3.0); HEMATOCRIT 48.2 % (42.0-52.0); HEMOGLOBIN 16.2 g/dl (13.5-17.5); LYMPH % 20.6 % (24.0-44.0); MEAN CORPUSCULAR HEMOGLOBIN 29.6 pg (27.0-33.0); MEAN CORPUSCULAR HGB CONC 33.6 g/dl (32.0-36.5); MONO # 0.8 10^3/uL (0.0-0.8); NEUTROPHILS # 6.9 10^3/uL (1.5-8.5); NEUTROPHILS % 70.4 % (36.0-66.0); PLATELET COUNT, AUTOMATED 308 10^3/uL (150-450); RED BLOOD COUNT 5.48 10^6/uL (4.30-6.10); WHITE BLOOD COUNT 9.7 10^3/uL (4.0-10.0)
[2022-03-01 13:10] LABS: ALBUMIN 4.3 GM/DL (3.2-5.2); BILIRUBIN,DIRECT 0.2 MG/DL (0.0-0.2); BILIRUBIN,TOTAL 0.8 MG/DL (0.2-1.0); TOTAL PROTEIN 7.9 GM/DL (6.4-8.2)
[2022-03-01] MEDS ORDERED: NYST1POW9 TOP (14:13)
[2022-03-01 14:19] LABS: GC DNA AMPLIFICATION NEGATIVE (NEGATIVE)
[2022-03-01 14:22] VITALS: BP 144/91
== END 2022-03-01 14:43 | disposition home or self-care (01) ==
LOC: M ED 09:20
DX: R10.9 Unspecified abdominal pain (principal); B37.2 Candidiasis of skin and nail; R30.0 Dysuria; R11.0 Nausea
CPT/HCPCS: 74021; 80047; 80076; 81001; 83690; 85025; 87661; 87810; 87850; 96374; 96375; 99284; J1885; J2405

== ENCOUNTER 2022-04-22 16:53 | Emergency (ER) | payer OTHER ==
[~2022-04-22] VITALS: Ht 167.6 cm; Wt 106.7 kg
[~2022-04-22 16:53] MED LIST changes: +ACET-910 PO; +NYST1POW9 TOP
[2022-04-22 18:23] LABS: BASO % 0.4 % (0.0-1.0); EOS % 0.3 % (0.0-3.0); HEMATOCRIT 45.4 % (42.0-52.0); HEMOGLOBIN 15.8 g/dl (13.5-17.5); LYMPH # 1.7 10^3/uL (1.5-5.0); LYMPH % 22.5 % (24.0-44.0); MEAN CORPUSCULAR HEMOGLOBIN 30.1 pg (27.0-33.0); MEAN CORPUSCULAR HGB CONC 34.8 g/dl (32.0-36.5); MEAN CORPUSCULAR VOLUME 86.5 fl (80.0-96.0); MONO # 0.7 10^3/uL (0.0-0.8); MONO % 9.4 % (2.0-8.0); NEUTROPHILS # 4.9 10^3/uL (1.5-8.5); NEUTROPHILS % 66.9 % (36.0-66.0); PLATELET COUNT, AUTOMATED 307 10^3/uL (150-450); RED BLOOD COUNT 5.25 10^6/uL (4.30-6.10); WHITE BLOOD COUNT 7.3 10^3/uL (4.0-10.0)
[2022-04-22 18:53] LABS: ALBUMIN 3.9 GM/DL (3.2-5.2); ALT/SGPT 29 U/L (12-78); BILIRUBIN,DIRECT 0.2 MG/DL (0.0-0.2); BILIRUBIN,TOTAL 0.6 MG/DL (0.2-1.0); BLOOD UREA NITROGEN 10 MG/DL (7-18); CALCIUM LEVEL 9.2 MG/DL (8.5-10.1); CARBON DIOXIDE LEVEL 23 MEQ/L (21-32); CHLORIDE LEVEL 108 MEQ/L (98-107); GLOMERULAR FILTRATION RATE > 60.0 (>60); GLUCOSE, FASTING 102 MG/DL (70-100); LIPASE 65 U/L (73-393); POTASSIUM SERUM 3.9 MEQ/L (3.5-5.1); SODIUM LEVEL 139 MEQ/L (136-145); TOTAL PROTEIN 7.4 GM/DL (6.4-8.2)
[2022-04-22 20:30] VITALS: BP 132/77
== END 2022-04-22 20:41 | disposition home or self-care (01) ==
LOC: M ED 16:53
DX: R10.30 Lower abdominal pain, unspecified (principal); K58.9 Irritable bowel syndrome, unspecified; Z91.030 Bee allergy status

== ENCOUNTER 2022-04-30 03:15 | Emergency (ER) | payer OTHER ==
[2022-04-30 03:37] VITALS: BP 146/95
[2022-04-30 05:28] LABS: BASO # 0.1 10^3/uL (0.0-0.2); BASO % 0.6 % (0.0-1.0); EOS % 0.4 % (0.0-3.0); HEMATOCRIT 45.2 % (42.0-52.0); HEMOGLOBIN 15.8 g/dl (13.5-17.5); LYMPH # 2.1 10^3/uL (1.5-5.0); LYMPH % 20.3 % (24.0-44.0); MEAN CORPUSCULAR HEMOGLOBIN 30.4 pg (27.0-33.0); MEAN CORPUSCULAR VOLUME 87.1 fl (80.0-96.0); MONO % 9.3 % (2.0-8.0); NEUTROPHILS # 7.3 10^3/uL (1.5-8.5); NEUTROPHILS % 69.1 % (36.0-66.0); PLATELET COUNT, AUTOMATED 337 10^3/uL (150-450); RED BLOOD COUNT 5.19 10^6/uL (4.30-6.10); WHITE BLOOD COUNT 10.5 10^3/uL (4.0-10.0)
[2022-04-30 06:02] LABS: ALBUMIN 3.7 GM/DL (3.2-5.2); ALT/SGPT 25 U/L (12-78); AMYLASE 39 U/L (25-115); BILIRUBIN,DIRECT 0.1 MG/DL (0.0-0.2); BILIRUBIN,TOTAL 0.3 MG/DL (0.2-1.0); BLOOD UREA NITROGEN 11 MG/DL (7-18); CALCIUM LEVEL 9.4 MG/DL (8.5-10.1); CARBON DIOXIDE LEVEL 25 MEQ/L (21-32); CHLORIDE LEVEL 104 MEQ/L (98-107); CREATININE FOR GFR 0.87 MG/DL (0.70-1.30); GLOMERULAR FILTRATION RATE > 60.0 (>60); GLUCOSE, FASTING 101 MG/DL (70-100); LIPASE 87 U/L (73-393); POTASSIUM SERUM 4.1 MEQ/L (3.5-5.1); SODIUM LEVEL 135 MEQ/L (136-145); TOTAL PROTEIN 7.1 GM/DL (6.4-8.2)
== END 2022-04-30 05:50 | disposition left against medical advice (07) ==
LOC: EDBD 03:15 → M ED 03:15
DX: Z53.21 Procedure and treatment not carried out due to patient leaving prior to being seen by health care provider (principal)

== ENCOUNTER 2022-05-10 18:23 | Emergency (ER) | payer OTHER ==
[~2022-05-10] VITALS: Ht 167.6 cm; Wt 107.9 kg
[2022-05-10 20:44] LABS: BASO # 0.1 10^3/uL (0.0-0.2); BASO % 0.6 % (0.0-1.0); EOS % 0.2 % (0.0-3.0); HEMATOCRIT 46.7 % (42.0-52.0); HEMOGLOBIN 16.3 g/dl (13.5-17.5); LYMPH # 2.5 10^3/uL (1.5-5.0); LYMPH % 25.1 % (24.0-44.0); MEAN CORPUSCULAR HEMOGLOBIN 30.2 pg (27.0-33.0); MEAN CORPUSCULAR HGB CONC 34.9 g/dl (32.0-36.5); MEAN CORPUSCULAR VOLUME 86.5 fl (80.0-96.0); MONO # 0.8 10^3/uL (0.0-0.8); MONO % 8.1 % (2.0-8.0); NEUTROPHILS # 6.6 10^3/uL (1.5-8.5); NEUTROPHILS % 65.6 % (36.0-66.0); PLATELET COUNT, AUTOMATED 327 10^3/uL (150-450); WHITE BLOOD COUNT 10.1 10^3/uL (4.0-10.0)
[2022-05-10 21:28] LABS: BILIRUBIN,DIRECT 0.1 MG/DL (0.0-0.2); BILIRUBIN,TOTAL 0.5 MG/DL (0.2-1.0); TOTAL PROTEIN 7.5 GM/DL (6.4-8.2)
[2022-05-10] MEDS ORDERED: LOPERAMIDE 2 MG CAPLET PO ONE (22:05)
[2022-05-10 22:22] VITALS: BP 127/78
== END 2022-05-10 22:25 | disposition home or self-care (01) ==
LOC: M ED 18:23
DX: R19.7 Diarrhea, unspecified (principal)

== ENCOUNTER 2022-05-14 11:59 | Emergency (ER) | payer OTHER ==
[~2022-05-14] VITALS: Ht 167.6 cm; Wt 107.3 kg
[2022-05-14 12:48] LABS: BASO % 0.5 % (0.0-1.0); EOS % 0.3 % (0.0-3.0); HEMATOCRIT 45.9 % (42.0-52.0); LYMPH # 2.2 10^3/uL (1.5-5.0); LYMPH % 28.9 % (24.0-44.0); MEAN CORPUSCULAR HEMOGLOBIN 30.5 pg (27.0-33.0); MEAN CORPUSCULAR HGB CONC 34.9 g/dl (32.0-36.5); MEAN CORPUSCULAR VOLUME 87.6 fl (80.0-96.0); MONO # 0.8 10^3/uL (0.0-0.8); NEUTROPHILS # 4.6 10^3/uL (1.5-8.5); NEUTROPHILS % 59.9 % (36.0-66.0); PLATELET COUNT, AUTOMATED 311 10^3/uL (150-450); RED BLOOD COUNT 5.24 10^6/uL (4.30-6.10); WHITE BLOOD COUNT 7.7 10^3/uL (4.0-10.0)
[2022-05-14 13:29] LABS: BLOOD UREA NITROGEN 10 MG/DL (7-18); CALCIUM LEVEL 9.1 MG/DL (8.5-10.1); CARBON DIOXIDE LEVEL 24 MEQ/L (21-32); CHLORIDE LEVEL 107 MEQ/L (98-107); CREATININE FOR GFR 0.91 MG/DL (0.70-1.30); GLOMERULAR FILTRATION RATE > 60.0 (>60); GLUCOSE, FASTING 104 MG/DL (70-100); POTASSIUM SERUM 4.1 MEQ/L (3.5-5.1); SODIUM LEVEL 138 MEQ/L (136-145)
[2022-05-14 13:54] LABS: ALBUMIN 3.8 GM/DL (3.2-5.2); ALT/SGPT 24 U/L (12-78); BILIRUBIN,DIRECT 0.1 MG/DL (0.0-0.2); BILIRUBIN,TOTAL 0.4 MG/DL (0.2-1.0); TOTAL PROTEIN 7.3 GM/DL (6.4-8.2)
[2022-05-14] MEDS ORDERED: ISOVUE-370 76% 100ML VIAL As Ordered ONE (13:59)
[2022-05-14 15:05] VITALS: BP 124/75
== END 2022-05-14 15:06 | disposition home or self-care (01) ==
LOC: M ED 11:59
DX: R10.9 Unspecified abdominal pain (principal); Z91.030 Bee allergy status
CPT/HCPCS: 36415; 74177; 80048; 80076; 85025; 99283; Q9967

== ENCOUNTER 2022-06-03 15:35 | Emergency (ER) | payer OTHER ==
[~2022-06-03] VITALS: Ht 167.6 cm; Wt 112.5 kg
[2022-06-03 17:09] VITALS: BP 149/74
[2022-06-03 17:24] LABS: GC DNA AMPLIFICATION NEGATIVE (NEGATIVE)
[2022-06-04] MEDS ORDERED: MIRA3350 PO (13:26)
[2022-06-04] MEDS ORDERED: KETO10TAB PO (13:26)
== END 2022-06-03 17:11 | disposition home or self-care (01) ==
LOC: M ED 15:35
DX: R31.29 Other microscopic hematuria (principal); R39.89 Other symptoms and signs involving the genitourinary system

== ENCOUNTER 2022-06-04 10:30 | Emergency (ER) | payer OTHER ==
[~2022-06-04] VITALS: Ht 167.6 cm; Wt 111.8 kg
[2022-06-04 11:11] LABS: BASO % 0.4 % (0.0-1.0); EOS % 0.4 % (0.0-3.0); HEMATOCRIT 46.5 % (42.0-52.0); HEMOGLOBIN 15.9 g/dl (13.5-17.5); LYMPH # 1.8 10^3/uL (1.5-5.0); LYMPH % 23.8 % (24.0-44.0); MEAN CORPUSCULAR HEMOGLOBIN 29.9 pg (27.0-33.0); MEAN CORPUSCULAR HGB CONC 34.2 g/dl (32.0-36.5); MEAN CORPUSCULAR VOLUME 87.6 fl (80.0-96.0); MONO # 0.8 10^3/uL (0.0-0.8); MONO % 10.6 % (2.0-8.0); NEUTROPHILS # 4.9 10^3/uL (1.5-8.5); NEUTROPHILS % 64.5 % (36.0-66.0); PLATELET COUNT, AUTOMATED 328 10^3/uL (150-450); RED BLOOD COUNT 5.31 10^6/uL (4.30-6.10); WHITE BLOOD COUNT 7.5 10^3/uL (4.0-10.0)
[2022-06-04 11:40] LABS: ALT/SGPT 48 U/L (12-78); BILIRUBIN,DIRECT 0.2 MG/DL (0.0-0.2); BILIRUBIN,TOTAL 0.8 MG/DL (0.2-1.0); BLOOD UREA NITROGEN 9 MG/DL (7-18); CALCIUM LEVEL 9.5 MG/DL (8.5-10.1); CARBON DIOXIDE LEVEL 29 MEQ/L (21-32); CHLORIDE LEVEL 103 MEQ/L (98-107); GLOMERULAR FILTRATION RATE > 60.0 (>60); GLUCOSE, FASTING 101 MG/DL (70-100); LIPASE 77 U/L (73-393); SODIUM LEVEL 136 MEQ/L (136-145); TOTAL PROTEIN 7.6 GM/DL (6.4-8.2)
[2022-06-04 12:31] VITALS: BP 130/67
[2022-06-04 12:36] LABS: GC DNA AMPLIFICATION NEGATIVE (NEGATIVE)
[2022-06-04] MEDS ORDERED: ISOVUE-370 76% 100ML VIAL As Ordered ONE (12:36)
[2022-06-04] MEDS ORDERED: KETO10TAB PO (13:26)
[2022-06-04] MEDS ORDERED: MIRA3350 PO (13:26)
== END 2022-06-04 13:38 | disposition home or self-care (01) ==
LOC: M ED 10:30 → EDBD 10:30 → M ED 13:38
DX: R10.30 Lower abdominal pain, unspecified (principal); K59.00 Constipation, unspecified; Z91.030 Bee allergy status; Z79.811 Long term (current) use of aromatase inhibitors; Z79.1 Long term (current) use of non-steroidal anti-inflammatories (NSAID); Z79.899 Other long term (current) drug therapy

== ENCOUNTER 2022-06-07 01:28 | Emergency (ER) | payer OTHER ==
[~2022-06-07] VITALS: Ht 167.6 cm; Wt 110.5 kg
[~2022-06-07 01:28] MED LIST changes: +KETO10TAB PO; +MIRA3350 PO
[2022-06-07 05:36] LABS: APPEARANCE, URINE MANUAL CLEAR (CLEAR); COLOR, URINE MANUAL YELLOW (YELLOW)
[2022-06-07 05:37] LABS: BILIRUBIN, URINE MANUAL NEGATIVE (NEGATIVE); BLOOD URINE MANUAL NEGATIVE (NEGATIVE); GLUCOSE, URINE (UA) MANUAL NEGATIVE (NEGATIVE); KETONE, URINE MANUAL NEGATIVE (NEGATIVE); NITRITE, URINE MANUAL NEGATIVE (NEGATIVE); PROTEIN, URINE MANUAL NEGATIVE (NEGATIVE); UROBILINOGEN, URINE MANUAL NORMAL (NORMAL)
[2022-06-07 05:38] LABS: LEUKOCYTE ESTERASE, URINE MAN NEGATIVE (NEGATIVE)
[2022-06-07 06:23] VITALS: BP 146/77
== END 2022-06-07 06:51 | disposition home or self-care (01) ==
LOC: M ED 01:28 → EDBD 01:28 → M ED 06:51
DX: R39.11 Hesitancy of micturition (principal); Z91.030 Bee allergy status; Z79.899 Other long term (current) drug therapy

== ENCOUNTER → 2022-06-11 | Outpatient (REF) | payer OTHER ==
[2022-06-11 13:26] LABS: APPEARANCE, URINE MANUAL CLEAR (CLEAR); COLOR, URINE MANUAL YELLOW (YELLOW)
[2022-06-11 13:27] LABS: BILIRUBIN, URINE MANUAL NEGATIVE (NEGATIVE); BLOOD URINE MANUAL NEGATIVE (NEGATIVE); GLUCOSE, URINE (UA) MANUAL NEGATIVE (NEGATIVE); KETONE, URINE MANUAL NEGATIVE (NEGATIVE); LEUKOCYTE ESTERASE, URINE MAN NEGATIVE (NEGATIVE); NITRITE, URINE MANUAL NEGATIVE (NEGATIVE); PROTEIN, URINE MANUAL NEGATIVE (NEGATIVE); SPECIFIC GRAVITY,URINE MANUAL 1.015 (1.002-1.035); UROBILINOGEN, URINE MANUAL NORMAL (NORMAL)
== END ==
LOC: M SMT 13:00
PROVIDERS: ATTEND Physician Assistant
DX: R30.0 Dysuria (principal)

== ENCOUNTER → 2022-06-11 | Outpatient (REF) | payer OTHER ==
[2022-06-11 19:50] LABS: APPEARANCE, URINE MANUAL CLEAR (CLEAR); COLOR, URINE MANUAL YELLOW (YELLOW)
[2022-06-11 19:52] LABS: BILIRUBIN, URINE MANUAL NEGATIVE (NEGATIVE); BLOOD URINE MANUAL NEGATIVE (NEGATIVE); GLUCOSE, URINE (UA) MANUAL NEGATIVE (NEGATIVE); KETONE, URINE MANUAL NEGATIVE (NEGATIVE); LEUKOCYTE ESTERASE, URINE MAN TRACE (NEGATIVE); NITRITE, URINE MANUAL NEGATIVE (NEGATIVE); PROTEIN, URINE MANUAL NEGATIVE (NEGATIVE); UROBILINOGEN, URINE MANUAL NORMAL (NORMAL)
[2022-06-11 21:04] LABS: BACTERIA, URINE NONE SEEN; HYALINE CAST, URINE NONE SEEN /lpf (0-1); MUCUS, URINE SMALL AMOUNT (NEGATIVE); RBC, URINE NONE SEEN /hpf (0-3); SQUAMOUS EPITHELIAL CELL URINE SMALL AMOUNT /hpf (SMALL AMT); WBC, URINE 0-1 /hpf (0-3)
== END ==
LOC: M LAB REF 16:24
PROVIDERS: ATTEND Physician Assistant Medical
DX: N39.0 Urinary tract infection, site not specified (principal)

== ENCOUNTER 2022-06-14 13:14 | Emergency (ER) | payer OTHER ==
[~2022-06-14] VITALS: Ht 167.6 cm; Wt 111.2 kg
[2022-06-14] MEDS ORDERED: TIZA10TA (13:27)
[2022-06-14] MEDS ORDERED: IBUP-1022 (13:27)
[2022-06-14] MEDS: BENZONATATE 100MG CAPSULE PO ONE (15:40)
[2022-06-14] MEDS ORDERED: PSEU120T19 PO (15:43)
[2022-06-14] MEDS ORDERED: BENZ200C70 PO (15:43)
[2022-06-14 15:56] VITALS: BP 136/77
== END 2022-06-14 15:58 | disposition home or self-care (01) ==
LOC: M ED 13:14
DX: R09.81 Nasal congestion (principal); R06.02 Shortness of breath; R05.9 Cough, unspecified; Z91.030 Bee allergy status

== ENCOUNTER 2022-07-11 16:25 | Emergency (ER) | payer OTHER ==
[~2022-07-11] VITALS: Ht 167.6 cm; Wt 109.0 kg
[~2022-07-11 16:25] MED LIST changes: +BENZ200C70 PO; +IBUP-1022; +PSEU120T19 PO; +TIZA10TA
[2022-07-11] MEDS ORDERED: LIDOCAINE 5% (LIDODERM) PATCH TD ONE (17:15)
[2022-07-11] MEDS ORDERED: methocarbamoL 750 MG TAB PO ONE (17:15)
[2022-07-11] MEDS ORDERED: KETOROLAC 60MG 2ML VIAL IM ONE (17:15)
[2022-07-11] MEDS ORDERED: METH-1165 PO (19:40)
[2022-07-11] MEDS ORDERED: NAPR-837 PO (19:40)
[2022-07-11] MEDS ORDERED: BIOF4GEL4 TOP (19:40)
[2022-07-11] MEDS ORDERED: ASPE4PAD TOP (19:40)
[2022-07-11 19:49] VITALS: BP 138/78
== END 2022-07-11 19:51 | disposition home or self-care (01) ==
LOC: M ED 16:25
DX: M54.6 Pain in thoracic spine (principal); R05.9 Cough, unspecified; G89.29 Other chronic pain; M54.50 Low back pain, unspecified; Z91.030 Bee allergy status
CPT/HCPCS: 71046; 96372; 99283; J1885

== ENCOUNTER 2022-07-21 14:12 | Emergency (ER) | payer OTHER ==
[~2022-07-21] VITALS: Ht 167.6 cm; Wt 107.7 kg
[~2022-07-21 14:12] MED LIST changes: +ASPE4PAD TOP; +BIOF4GEL4 TOP; +METH-1165 PO; +NAPR-837 PO
[2022-07-21 16:16] VITALS: BP 131/87
== END 2022-07-21 16:39 | disposition home or self-care (01) ==
LOC: EDBD 14:12 → M ED 14:12
DX: R07.89 Other chest pain (principal); R30.0 Dysuria; R31.9 Hematuria, unspecified; R11.2 Nausea with vomiting, unspecified; R00.0 Tachycardia, unspecified; Z91.030 Bee allergy status; Z79.899 Other long term (current) drug therapy

== ENCOUNTER 2022-08-17 23:28 | Emergency (ER) | payer OTHER ==
[~2022-08-17] VITALS: Ht 167.6 cm; Wt 108.1 kg
[2022-08-17 23:50] LABS: HEMATOCRIT 46.2 % (42.0-52.0); HEMOGLOBIN 15.6 g/dl (13.5-17.5); MEAN CORPUSCULAR HEMOGLOBIN 29.6 pg (27.0-33.0); MEAN CORPUSCULAR HGB CONC 33.8 g/dl (32.0-36.5); MEAN CORPUSCULAR VOLUME 87.7 fl (80.0-96.0); PLATELET COUNT, AUTOMATED 445 10^3/uL (150-450); RED BLOOD COUNT 5.27 10^6/uL (4.30-6.10); WHITE BLOOD COUNT 13.6 10^3/uL (4.0-10.0)
[2022-08-17] MEDS ORDERED: NS 1,000 ML IV ONE (23:55)
[2022-08-18 00:08] LABS: ATYPICAL LYMPH 3 % (0-5); LYMPHOCYTES 36 % (16-44); MONOCYTES 10 % (0-5); NEUTROPHILS 51 % (28-66); PLATELET ESTIMATE NORMAL (NORMAL)
[2022-08-18 00:12] LABS: CK-MB VALUE MASS < 1.0 NG/ML (<3.6)
[2022-08-18 00:14] LABS: BLOOD UREA NITROGEN 12 MG/DL (9-23); CARBON DIOXIDE LEVEL 20 MMOL/L (20-31); CHLORIDE LEVEL 103 MMOL/L (98-107); CPK CREATINE PHOSPHOKINASE 59 U/L (46-171); CREATININE FOR GFR 0.91 MG/DL (0.70-1.30); GLOMERULAR FILTRATION RATE > 60.0 (>60); GLUCOSE, FASTING 152 MG/DL (60-100); MB/CK RELATIVE INDEX 1.69 (< OR =4); POTASSIUM SERUM 3.3 MMOL/L (3.5-5.1); SODIUM LEVEL 138 MMOL/L (136-145)
[2022-08-18] MEDS ORDERED: NS 1,000 ML IV ONE (01:00)
[2022-08-18 01:45] LABS: CK-MB VALUE MASS < 1.0 NG/ML (<3.6)
[2022-08-18 01:48] LABS: CPK CREATINE PHOSPHOKINASE 47 U/L (46-171); MB/CK RELATIVE INDEX 2.12 (< OR =4)
[2022-08-18 01:54] LABS: RSV AMPLIFICATION NEGATIVE (NEGATIVE)
[2022-08-18 03:03] LABS: BARBITURATES URINE NEGATIVE (NEGATIVE)
[2022-08-18 03:04] LABS: AMPHETAMINES LEVEL URINE NEGATIVE (NEGATIVE); BENZODIAZEPINES URINE NEGATIVE (NEGATIVE); COCAINE METABOLITE URINE NEGATIVE (NEGATIVE); METHADONE URINE NEGATIVE (NEGATIVE); OPIATES URINE NEGATIVE (NEGATIVE); PHENCYCLIDINE URINE NEGATIVE (NEGATIVE)
[2022-08-18] MEDS ORDERED: ACETAMINOPHEN 325 MG TAB PO ONE (03:05)
[2022-08-18 03:10] LABS: CANNABINOIDS URINE POSITIVE (NEGATIVE)
[2022-08-18 03:15] VITALS: BP 107/56
== END 2022-08-18 03:27 | disposition home or self-care (01) ==
LOC: EDBD 23:28 → M ED 23:28
DX: U07.1 COVID-19 (principal); R00.2 Palpitations; R00.0 Tachycardia, unspecified; F19.10 Other psychoactive substance abuse, uncomplicated; F12.10 Cannabis abuse, uncomplicated; Z91.030 Bee allergy status; Z79.899 Other long term (current) drug therapy

== ENCOUNTER 2022-08-30 08:44 | Emergency (ER) | payer OTHER ==
[~2022-08-30] VITALS: Ht 167.6 cm; Wt 106.8 kg
[2022-08-30 08:44] VITALS: BP 132/89
== END 2022-08-30 12:09 | disposition home or self-care (01) ==
LOC: M ED 08:44
DX: B34.9 Viral infection, unspecified (principal); Z91.030 Bee allergy status; Z79.899 Other long term (current) drug therapy

== ENCOUNTER 2022-08-30 18:15 | Emergency (ER) | payer OTHER ==
[~2022-08-30] VITALS: Ht 167.6 cm; Wt 105.9 kg
[2022-08-30 18:15] VITALS: BP 130/98
[2022-08-30] MEDS ORDERED: IBUPROFEN 800 MG TAB PO ONE (20:50)
== END 2022-08-30 21:02 | disposition home or self-care (01) ==
LOC: M ED 18:15
DX: M94.0 Chondrocostal junction syndrome [Tietze] (principal); F32.A Depression, unspecified; F41.9 Anxiety disorder, unspecified; Z91.030 Bee allergy status; Z79.899 Other long term (current) drug therapy

== ENCOUNTER 2022-09-01 01:31 | Emergency (ER) | payer OTHER ==
[~2022-09-01] VITALS: Ht 167.6 cm; Wt 106.1 kg
[2022-09-01] MEDS ORDERED: ACET-683 PO (01:57)
[2022-09-01 03:41] LABS: BASO # 0.1 10^3/uL (0.0-0.2); BASO % 0.6 % (0.0-1.0); EOS # 0.1 10^3/uL (0.0-0.5); HEMATOCRIT 46.8 % (42.0-52.0); HEMOGLOBIN 16.1 g/dl (13.5-17.5); LYMPH # 2.9 10^3/uL (1.5-5.0); LYMPH % 21.5 % (24.0-44.0); MEAN CORPUSCULAR HEMOGLOBIN 29.6 pg (27.0-33.0); MEAN CORPUSCULAR HGB CONC 34.4 g/dl (32.0-36.5); MONO # 1.1 10^3/uL (0.0-0.8); MONO % 8.2 % (2.0-8.0); NEUTROPHILS # 9.3 10^3/uL (1.5-8.5); NEUTROPHILS % 68.3 % (36.0-66.0); PLATELET COUNT, AUTOMATED 336 10^3/uL (150-450); RED BLOOD COUNT 5.44 10^6/uL (4.30-6.10); WHITE BLOOD COUNT 13.6 10^3/uL (4.0-10.0)
[2022-09-01 04:07] LABS: BILIRUBIN,DIRECT 0.1 MG/DL (<0.4)
[2022-09-01 04:08] LABS: ALBUMIN 4.3 G/DL (3.2-5.2); ALKALINE PHOSPHATASE 192 U/L (46-116); ALT/SGPT 22 U/L (7.0-40); AST/SGOT 19 U/L (<34); BILIRUBIN,TOTAL 0.3 MG/DL (0.3-1.2); BLOOD UREA NITROGEN 6 MG/DL (9-23); CALCIUM LEVEL 9.6 MG/DL (8.5-10.1); CARBON DIOXIDE LEVEL 23 MMOL/L (20-31); CHLORIDE LEVEL 104 MMOL/L (98-107); CREATININE FOR GFR 0.75 MG/DL (0.70-1.30); GLOMERULAR FILTRATION RATE > 60.0 (>60); GLUCOSE, FASTING 105 MG/DL (60-100); POTASSIUM SERUM 4.2 MMOL/L (3.5-5.1); SODIUM LEVEL 138 MMOL/L (136-145); TOTAL PROTEIN 7.6 G/DL (5.7-8.2)
[2022-09-01] MEDS ORDERED: GI COCKTAIL 50ML BTL(HYOSCYAMINE/MAALOX/LIDOCAINE VISCOUS)(1:3:1) PO ONE (08:25)
[2022-09-01 09:48] LABS: GC DNA AMPLIFICATION NEGATIVE (NEGATIVE)
[2022-09-01] MEDS ORDERED: OMEP40CA4 PO (10:02)
[2022-09-01] MEDS ORDERED: CARA1TAB6 PO (10:02)
[2022-09-01 10:12] VITALS: BP 134/86
== END 2022-09-01 10:14 | disposition home or self-care (01) ==
LOC: EDBD 01:31 → M ED 01:31
DX: K29.70 Gastritis, unspecified, without bleeding (principal); K21.9 Gastro-esophageal reflux disease without esophagitis; R10.11 Right upper quadrant pain; K76.0 Fatty (change of) liver, not elsewhere classified; R30.0 Dysuria; F90.9 Attention-deficit hyperactivity disorder, unspecified type; F41.9 Anxiety disorder, unspecified; M54.40 Lumbago with sciatica, unspecified side; Z91.030 Bee allergy status; Z79.899 Other long term (current) drug therapy

== ENCOUNTER 2022-09-06 02:27 | Emergency (ER) | payer OTHER ==
[~2022-09-06] VITALS: Ht 167.6 cm; Wt 105.9 kg
[~2022-09-06 02:27] MED LIST changes: +CARA1TAB6 PO; +OMEP40CA4 PO
[2022-09-06 02:28] VITALS: BP 124/86
== END 2022-09-06 04:15 | disposition left against medical advice (07) ==
LOC: M ED 02:27
DX: Z53.21 Procedure and treatment not carried out due to patient leaving prior to being seen by health care provider (principal)

== ENCOUNTER → 2022-10-04 | Outpatient (REF) | payer OTHER ==
[2022-10-05 12:11] LABS: APPEARANCE, URINE MANUAL CLEAR (CLEAR); COLOR, URINE MANUAL LT YELLOW (YELLOW)
[2022-10-05 12:12] LABS: SPECIFIC GRAVITY,URINE MANUAL 1.005 (1.002-1.035)
[2022-10-05 12:13] LABS: BILIRUBIN, URINE MANUAL NEGATIVE (NEGATIVE); BLOOD URINE MANUAL NEGATIVE (NEGATIVE); GLUCOSE, URINE (UA) MANUAL NEGATIVE (NEGATIVE); KETONE, URINE MANUAL NEGATIVE (NEGATIVE); LEUKOCYTE ESTERASE, URINE MAN NEGATIVE (NEGATIVE); NITRITE, URINE MANUAL NEGATIVE (NEGATIVE); PROTEIN, URINE MANUAL NEGATIVE (NEGATIVE); UROBILINOGEN, URINE MANUAL NORMAL (NORMAL)
== END ==
LOC: M SMT 09:58
PROVIDERS: ATTEND Physician Assistant
DX: R30.0 Dysuria (principal)

== ENCOUNTER 2022-10-28 21:14 | Emergency (ER) | payer OTHER ==
[~2022-10-28] VITALS: Ht 167.6 cm; Wt 103.3 kg
[2022-10-28 21:14] VITALS: BP 123/85
[2022-10-28] MEDS ORDERED: ONDANSETRON 4MG ORAL DISINTEGRATING TAB PO ONE (23:40)
[2022-10-28] MEDS ORDERED: ONDA4TAB6 PO (23:41)
== END 2022-10-28 23:45 | disposition home or self-care (01) ==
LOC: M ED 21:14
DX: R11.2 Nausea with vomiting, unspecified (principal); K02.9 Dental caries, unspecified; Z91.030 Bee allergy status; Z79.899 Other long term (current) drug therapy

== ENCOUNTER → 2023-02-08 | Outpatient (REF) | payer OTHER ==
[2023-02-08 17:54] LABS: THYROID STIMULATING HORMONE 1.276 uIU/ML (0.55-4.78)
[2023-02-08 17:55] LABS: FREE T4 1.44 NG/DL (0.89-1.76)
[2023-02-08 17:57] LABS: ALBUMIN 4.3 G/DL (3.2-5.2); ALKALINE PHOSPHATASE 170 U/L (46-116); ALT/SGPT 12 U/L (7.0-40); AST/SGOT 12 U/L (<34); BILIRUBIN,TOTAL 0.6 MG/DL (0.3-1.2); BLOOD UREA NITROGEN 12 MG/DL (9-23); CALCIUM LEVEL 8.8 MG/DL (8.5-10.1); CARBON DIOXIDE LEVEL 25 MMOL/L (20-31); CHLORIDE LEVEL 104 MMOL/L (98-107); CHOLESTEROL LEVEL 92 MG/DL (<200); CHOLESTEROL RISK RATIO 2.72 (<5); CREATININE FOR GFR 0.86 MG/DL (0.70-1.30); GLOMERULAR FILTRATION RATE > 60.0 (>60); GLUCOSE, FASTING 77 MG/DL (60-100); HDL CHOLESTEROL 33.8 MG/DL (>40); NON-HDL-C 58.2 MG/DL; POTASSIUM SERUM 3.8 MMOL/L (3.5-5.1); SODIUM LEVEL 135 MMOL/L (136-145); TOTAL PROTEIN 7.3 G/DL (5.7-8.2); TRIGLYCERIDES LEVEL 41 MG/DL (<150)
[2023-02-08 18:20] LABS: HIV 1&2 SCREEN NEGATIVE (NEGATIVE)
[2023-02-08 18:27] LABS: HEPATITIS C VIRUS ABY INDEX 0.09 INDEX (<0.8)
== END ==
LOC: M LAB REF 16:45
PROVIDERS: ATTEND Family Medicine Addiction Medicine
DX: E66.9 Obesity, unspecified (principal); Z68.32 Body mass index [BMI] 32.0-32.9, adult

== ENCOUNTER → 2023-05-02 | Outpatient (CLI) | payer OTHER ==
[~2023-05-02] MED LIST changes: +DICY-61 PO; -DICY10CA13 PO
[2023-05-02 09:31] LABS: HEMATOCRIT 46.4 % (42.0-52.0); HEMOGLOBIN 15.4 g/dl (13.5-17.5); MEAN CORPUSCULAR HEMOGLOBIN 29.4 pg (27.0-33.0); MEAN CORPUSCULAR HGB CONC 33.2 g/dl (32.0-36.5); MEAN CORPUSCULAR VOLUME 88.7 fl (80.0-96.0); PLATELET COUNT, AUTOMATED 241 10^3/uL (150-450); RED BLOOD COUNT 5.23 10^6/uL (4.30-6.10)
== END ==
LOC: M LAB 08:55
PROVIDERS: ATTEND Physician Assistant Medical
DX: K62.5 Hemorrhage of anus and rectum (principal)

== ENCOUNTER → 2023-05-06 | Outpatient (REF) | payer OTHER ==
[2023-05-07 00:29] LABS: GC DNA AMPLIFICATION NEGATIVE (NEGATIVE)
== END ==
LOC: M WUC 15:20
PROVIDERS: ATTEND Student in an Organized Health Care Education/Training Program
DX: R30.0 Dysuria (principal)

== ENCOUNTER 2023-05-12 09:40 | Emergency (ER) | payer OTHER ==
[~2023-05-12] VITALS: Ht 167.6 cm; Wt 91.8 kg
[2023-05-12 13:04] VITALS: BP 130/74; TEMP 97.9; O2SAT 97
[2023-05-16] MEDS ORDERED: PHEN1TAB73 (10:13)
== END 2023-05-12 13:02 | disposition home or self-care (01) ==
LOC: M ED 09:40
DX: R51.9 Headache, unspecified (principal); Z91.030 Bee allergy status; Z79.83 Long term (current) use of bisphosphonates; Z79.810 Long term (current) use of selective estrogen receptor modulators (SERMs); Z79.899 Other long term (current) drug therapy

== ENCOUNTER 2023-05-15 15:42 | Emergency (ER) | payer OTHER ==
[~2023-05-15] VITALS: Ht 167.6 cm; Wt 91.0 kg
[2023-05-15 15:51] VITALS: BP 131/84; TEMP 98.2; O2SAT 96
[2023-05-16] MEDS ORDERED: PHEN1TAB73 (10:13)
== END 2023-05-15 16:15 | disposition left against medical advice (07) ==
LOC: M ED 15:42
DX: Z53.21 Procedure and treatment not carried out due to patient leaving prior to being seen by health care provider (principal)

== ENCOUNTER → 2023-06-10 | Outpatient (REF) | payer OTHER ==
[~2023-06-10] MED LIST changes: +OMEP-173 PO; +PHEN1TAB73
[2023-06-10 17:50] LABS: APPEARANCE, URINE CLEAR (CLEAR); BACTERIA, URINE AUTO NEGATIVE (NEGATIVE); BILIRUBIN, URINE AUTO NEGATIVE (NEGATIVE); BLOOD, URINE BLOOD NEGATIVE (NEGATIVE); COLOR, URINE AMBER (YELLOW); GLUCOSE, URINE (UA) AUTO NEGATIVE (NEGATIVE); KETONE, URINE AUTO NEGATIVE (NEGATIVE); LEUKOCYTE ESTERASE, URINE AUTO NEGATIVE (NEGATIVE); NITRITE, URINE AUTO POSITIVE (NEGATIVE); PROTEIN, URINE AUTO NEGATIVE (NEGATIVE); RBC, URINE AUTO 0 /HPF (0-3); SPECIFIC GRAVITY URINE AUTO 1.014 (1.002-1.035); SQUAMOUS EPITHELIAL CELL UR AU 0 /HPF (0-6); WBC, URINE AUTO 0 /HPF (0-3)
== END ==
LOC: M SMT 17:17
PROVIDERS: ATTEND Physician Assistant
DX: R30.0 Dysuria (principal)

== ENCOUNTER → 2023-06-20 | Day surgery (SDC) | payer OTHER ==
[~2023-06-20] VITALS: Ht 167.6 cm; Wt 86.6 kg
[~2023-06-20] MED LIST changes: +LIDOCAINE 2% 100MG/5ML SDV (FOR ANES.) As Ordered ONE; +NS 1,000 ML IV ONE; +fentaNYL 100 MCG/2 ML INJECTION As Ordered ONE; +propofoL 200 MG/20 ML VIAL As Ordered ONE
[2023-06-20 11:59] VITALS: TEMP 97.5
[2023-06-20 12:20] VITALS: BP 115/63; O2SAT 97
== END | disposition home or self-care (01) ==
LOC: M OPP 10:30
PROVIDERS: ATTEND Internal Medicine Gastroenterology
DX: K64.8 Other hemorrhoids (principal); R10.84 Generalized abdominal pain; K92.1 Melena; R63.4 Abnormal weight loss; K21.9 Gastro-esophageal reflux disease without esophagitis; F41.9 Anxiety disorder, unspecified; Z91.030 Bee allergy status; Z79.899 Other long term (current) drug therapy; Z82.49 Family history of ischemic heart disease and other diseases of the circulatory system; Z83.79 Family history of other diseases of the digestive system
CPT/HCPCS: 43235; 45378; J3010

== ENCOUNTER 2024-06-16 17:19 | Emergency (ER) | payer OTHER ==
[~2024-06-16] VITALS: Ht 167.6 cm; Wt 77.8 kg
[~2024-06-16 17:19] MED LIST changes: -LIDOCAINE 2% 100MG/5ML SDV (FOR ANES.) As Ordered ONE; -NS 1,000 ML IV ONE; +ONDA-282 PO; -ONDA4TAB6 PO; -SIME180C25 PO; +SIME1CAP4 PO; -fentaNYL 100 MCG/2 ML INJECTION As Ordered ONE; -propofoL 200 MG/20 ML VIAL As Ordered ONE
[2024-06-16 18:49] LABS: BASO % 0.6 % (0.0-1.0); EOS % 0.1 % (0.0-3.0); HEMATOCRIT 46.9 % (42.0-52.0); HEMOGLOBIN 16.7 g/dl (13.5-17.5); LYMPH # 1.9 10^3/uL (1.5-5.0); LYMPH % 27.1 % (24.0-44.0); MEAN CORPUSCULAR HEMOGLOBIN 30.8 pg (27.0-33.0); MEAN CORPUSCULAR HGB CONC 35.6 g/dl (32.0-36.5); MEAN CORPUSCULAR VOLUME 86.4 fl (80.0-96.0); MONO # 0.6 10^3/uL (0.0-0.8); MONO % 8.3 % (2.0-8.0); NEUTROPHILS # 4.4 10^3/uL (1.5-8.5); NEUTROPHILS % 63.8 % (36.0-66.0); PLATELET COUNT, AUTOMATED 295 10^3/uL (150-450); RED BLOOD COUNT 5.43 10^6/uL (4.30-6.10); WHITE BLOOD COUNT 6.9 10^3/uL (4.0-10.0)
[2024-06-16 19:13] LABS: BLOOD UREA NITROGEN 11 MG/DL (9-23); CALCIUM LEVEL 9.6 MG/DL (8.5-10.1); CARBON DIOXIDE LEVEL 27 MMOL/L (20-31); CHLORIDE LEVEL 107 MMOL/L (98-107); CREATININE FOR GFR 0.93 MG/DL (0.70-1.30); GLOMERULAR FILTRATION RATE > 60.0 (>60); GLUCOSE, FASTING 90 MG/DL (60-100); POTASSIUM SERUM 4.2 MMOL/L (3.5-5.1); SODIUM LEVEL 139 MMOL/L (136-145)
[2024-06-16 19:18] LABS: CK-MB VALUE MASS < 1.0 NG/ML (<3.6)
[2024-06-16 19:24] LABS: THYROID STIMULATING HORMONE 1.237 uIU/ML (0.55-4.78)
[2024-06-16 19:28] LABS: CPK CREATINE PHOSPHOKINASE 58 U/L (46-171); MB/CK RELATIVE INDEX 1.72 (< OR =4)
[2024-06-16 21:56] VITALS: TEMP 98.1
[2024-06-17 00:30] VITALS: BP 119/74; O2SAT 97
== END 2024-06-17 00:34 | disposition home or self-care (01) ==
LOC: M ED 17:19
DX: R55 Syncope and collapse (principal); Z91.030 Bee allergy status

== ENCOUNTER 2024-06-17 22:23 | Emergency (ER) | payer OTHER ==
[~2024-06-17] VITALS: Ht 167.6 cm; Wt 78.7 kg
[2024-06-18 07:57] LABS: BASO % 0.6 % (0.0-1.0); EOS % 0.2 % (0.0-3.0); HEMATOCRIT 44.5 % (42.0-52.0); HEMOGLOBIN 15.9 g/dl (13.5-17.5); LYMPH # 1.9 10^3/uL (1.5-5.0); LYMPH % 29.3 % (24.0-44.0); MEAN CORPUSCULAR HEMOGLOBIN 30.8 pg (27.0-33.0); MEAN CORPUSCULAR HGB CONC 35.7 g/dl (32.0-36.5); MEAN CORPUSCULAR VOLUME 86.2 fl (80.0-96.0); MONO # 0.6 10^3/uL (0.0-0.8); MONO % 8.4 % (2.0-8.0); NEUTROPHILS % 61.3 % (36.0-66.0); PLATELET COUNT, AUTOMATED 267 10^3/uL (150-450); RED BLOOD COUNT 5.16 10^6/uL (4.30-6.10); WHITE BLOOD COUNT 6.6 10^3/uL (4.0-10.0)
[2024-06-18 08:11] LABS: BLOOD UREA NITROGEN 10 MG/DL (9-23); CALCIUM LEVEL 9.4 MG/DL (8.5-10.1); CARBON DIOXIDE LEVEL 24 MMOL/L (20-31); CHLORIDE LEVEL 108 MMOL/L (98-107); CK-MB VALUE MASS < 1.0 NG/ML (<3.6); CREATININE FOR GFR 0.78 MG/DL (0.70-1.30); GLOMERULAR FILTRATION RATE > 60.0 (>60); GLUCOSE, FASTING 89 MG/DL (60-100); POTASSIUM SERUM 4.3 MMOL/L (3.5-5.1); SODIUM LEVEL 139 MMOL/L (136-145)
[2024-06-18 08:13] LABS: FREE T4 1.67 NG/DL (0.89-1.76); THYROID STIMULATING HORMONE 1.584 uIU/ML (0.55-4.78)
[2024-06-18 08:14] LABS: CPK CREATINE PHOSPHOKINASE 77 U/L (46-171); MB/CK RELATIVE INDEX 1.29 (< OR =4)
[2024-06-18] MEDS: NS 1,000 ML IV ONE (08:18)
[2024-06-18] MEDS: KETOROLAC 30 MG/ML 1ML VIAL IV ONE (08:19)
[2024-06-18 09:27] LABS: CK-MB VALUE MASS < 1.0 NG/ML (<3.6)
[2024-06-18 09:33] LABS: CPK CREATINE PHOSPHOKINASE 73 U/L (46-171); MB/CK RELATIVE INDEX 1.36 (< OR =4)
[2024-06-18] MEDS ORDERED: HOME MED LIST COMPLETE! XX SCH (10:05)
[2024-06-18 10:30] VITALS: O2SAT 98
[2024-06-18 11:14] VITALS: BP 119/78; TEMP 98.2
== END 2024-06-18 11:16 | disposition home or self-care (01) ==
LOC: M ED 22:23
DX: R07.9 Chest pain, unspecified (principal); F41.9 Anxiety disorder, unspecified; R55 Syncope and collapse; M54.50 Low back pain, unspecified; Z91.030 Bee allergy status
CPT/HCPCS: 70450; 71045; 80048; 82550; 82553; 84439; 84443; 84484; 85025; 93005; 93041; 94760; 96374; 99285; J1885

== ENCOUNTER 2024-06-24 16:28 | Emergency (ER) | payer OTHER ==
[~2024-06-24] VITALS: Ht 167.6 cm; Wt 77.3 kg
[2024-06-24 16:39] VITALS: TEMP 97.5
[2024-06-24] MEDS: MAALOX 30 ML SUSP *UDC PO ONE (20:09)
[2024-06-24 21:15] VITALS: BP 120/73
[2024-06-24 21:16] VITALS: O2SAT 98
[2024-06-24] MEDS ORDERED: FAMO20TA PO (21:20)
== END 2024-06-24 21:37 | disposition home or self-care (01) ==
LOC: M ED 16:28 → EDBD 16:28 → M ED 21:37
DX: R07.9 Chest pain, unspecified (principal); K21.9 Gastro-esophageal reflux disease without esophagitis; F41.9 Anxiety disorder, unspecified; Z91.030 Bee allergy status; Z79.899 Other long term (current) drug therapy

== ENCOUNTER → 2024-07-06 | Outpatient (CLI) | payer OTHER ==
[~2024-07-06] MED LIST changes: -CYCL5TAB PO; +CYCL5TAB4 PO; +FAMO20TA PO; +NYST1POW3 TOP; -NYST1POW9 TOP
== END ==
LOC: M RAD 15:05
PROVIDERS: ATTEND Family Medicine Addiction Medicine
DX: M25.512 Pain in left shoulder (principal)

== ENCOUNTER → 2024-08-24 | Outpatient (CLI) | payer OTHER ==
[~2024-08-24] MED LIST changes: +E-Z-GAS II EFFERVESCENT PACKET (SODIUM BICARB./CITRIC ACID/SIMETHICONE) As Ordered ONE; +E-Z-HD 98% w/w 340GM SUSP BTL As Ordered ONE; +E-Z-PAQUE 96% w/w SUSP 176GM BTL As Ordered ONE
== END ==
LOC: M RAD 09:33
PROVIDERS: ATTEND Physician Assistant Medical
DX: K21.9 Gastro-esophageal reflux disease without esophagitis (principal)

== ENCOUNTER 2024-12-12 14:56 | Emergency (ER) | payer OTHER ==
[~2024-12-12] VITALS: Ht 167.6 cm; Wt 80.8 kg
[~2024-12-12 14:56] MED LIST changes: -E-Z-GAS II EFFERVESCENT PACKET (SODIUM BICARB./CITRIC ACID/SIMETHICONE) As Ordered ONE; -E-Z-HD 98% w/w 340GM SUSP BTL As Ordered ONE; -E-Z-PAQUE 96% w/w SUSP 176GM BTL As Ordered ONE; -FLOM0.4C39 PO; +TAMS-18 PO
[2024-12-12 14:58] VITALS: TEMP 97.1
[2024-12-12] MEDS: PANTOPRAZOLE 40MG VIAL IV ONE (17:44)
[2024-12-12] MEDS: NS (Normal Saline) 0.9% 1,000 ML IV ONE (17:44)
[2024-12-12] MEDS: KETOROLAC 30 MG/ML 1ML VIAL IV ONE (17:45)
[2024-12-12 17:51] LABS: BASO % 0.5 % (0.0-1.0); HEMATOCRIT 42.6 % (42.0-52.0); HEMOGLOBIN 15.4 g/dl (13.5-17.5); LYMPH # 1.5 10^3/uL (1.5-5.0); LYMPH % 20.6 % (24.0-44.0); MEAN CORPUSCULAR HEMOGLOBIN 30.9 pg (27.0-33.0); MEAN CORPUSCULAR HGB CONC 36.2 g/dl (32.0-36.5); MEAN CORPUSCULAR VOLUME 85.5 fl (80.0-96.0); MONO # 0.4 10^3/uL (0.0-0.8); MONO % 5.9 % (2.0-8.0); NEUTROPHILS # 5.4 10^3/uL (1.5-8.5); NEUTROPHILS % 72.9 % (36.0-66.0); PLATELET COUNT, AUTOMATED 262 10^3/uL (150-450); RED BLOOD COUNT 4.98 10^6/uL (4.30-6.10); WHITE BLOOD COUNT 7.4 10^3/uL (4.0-10.0)
[2024-12-12 18:04] VITALS: BP 123/68; O2SAT 98
[2024-12-12 18:32] LABS: ALBUMIN 4.2 G/DL (3.2-5.2); ALKALINE PHOSPHATASE 143 U/L (40-129); ALT/SGPT 12 U/L (7.0-40); AST/SGOT 15 U/L (<34); BLOOD UREA NITROGEN 7 MG/DL (9-23); CALCIUM LEVEL 8.9 MG/DL (8.5-10.1); CARBON DIOXIDE LEVEL 23 MMOL/L (20-31); CHLORIDE LEVEL 104 MMOL/L (98-107); CK-MB VALUE MASS < 1.0 NG/ML (<3.6); CPK CREATINE PHOSPHOKINASE 107 U/L (46-171); CREATININE FOR GFR 0.83 MG/DL (0.70-1.30); GLOMERULAR FILTRATION RATE > 90.0 (>60); GLUCOSE, FASTING 83 MG/DL (60-100); MB/CK RELATIVE INDEX 0.93 (< OR =4); POTASSIUM SERUM 3.5 MMOL/L (3.5-5.1); SODIUM LEVEL 138 MMOL/L (136-145)
[2024-12-12] MEDS ORDERED: OMEP40CA4 PO (19:31)
[2024-12-12] MEDS ORDERED: HYDR-3363 PO (19:31)
== END 2024-12-12 19:40 | disposition home or self-care (01) ==
LOC: M ED 14:56
DX: K21.9 Gastro-esophageal reflux disease without esophagitis (principal); Z91.030 Bee allergy status; Z79.899 Other long term (current) drug therapy
CPT/HCPCS: 71045; 80053; 82550; 82553; 84484; 85025; 93005; 96361; 96374; 96375; 99284; J1885; J2470

== ENCOUNTER 2024-12-14 08:15 | Inpatient (IN) | payer MEDICAID, OTHER ==
[~2024-12-14] VITALS: Ht 167.6 cm; Wt 77.3 kg
[~2024-12-14 08:15] MED LIST changes: +HYDR-3363 PO
[2024-12-14 09:26] LABS: BASO % 0.4 % (0.0-1.0); HEMATOCRIT 44.5 % (42.0-52.0); HEMOGLOBIN 15.9 g/dl (13.5-17.5); MEAN CORPUSCULAR HEMOGLOBIN 30.4 pg (27.0-33.0); MEAN CORPUSCULAR HGB CONC 35.7 g/dl (32.0-36.5); MEAN CORPUSCULAR VOLUME 85.1 fl (80.0-96.0); MONO # 0.3 10^3/uL (0.0-0.8); MONO % 4.7 % (2.0-8.0); NEUTROPHILS # 5.7 10^3/uL (1.5-8.5); NEUTROPHILS % 80.8 % (36.0-66.0); PLATELET COUNT, AUTOMATED 255 10^3/uL (150-450); RED BLOOD COUNT 5.23 10^6/uL (4.30-6.10); WHITE BLOOD COUNT 7.1 10^3/uL (4.0-10.0)
[2024-12-14 09:54] LABS: BLOOD UREA NITROGEN 12 MG/DL (9-23); CALCIUM LEVEL 8.6 MG/DL (8.5-10.1); CARBON DIOXIDE LEVEL 18 MMOL/L (20-31); CHLORIDE LEVEL 105 MMOL/L (98-107); GLOMERULAR FILTRATION RATE > 90.0 (>60); GLUCOSE, FASTING 132 MG/DL (60-100); POTASSIUM SERUM 3.8 MMOL/L (3.5-5.1); SODIUM LEVEL 140 MMOL/L (136-145)
[2024-12-14] MEDS: PANTOPRAZOLE 40MG VIAL IV ONE (09:54)
[2024-12-14] MEDS: FAMOTIDINE 20MG/2ML VIAL IVP ONE (09:57)
[2024-12-14] MEDS: SUCRALFATE SUSP 1GM/10ML UD PO ONE (09:59)
[2024-12-14] MEDS: KETOROLAC 30 MG/ML 1ML VIAL IV ONE (11:44)
[2024-12-14] MEDS ORDERED: ISOVUE-370 76% 100ML VIAL As Ordered ONE (11:59)
[2024-12-14 12:57] LABS: ETHYL ALCOHOL (ETHANOL) 0.004 % (0.000-0.010); LIPASE 26 U/L (12-53)
[2024-12-14 12:59] LABS: SALICYLATE LEVEL < 3.0 MG/DL (<30)
[2024-12-14 13:02] LABS: ALBUMIN 4.3 G/DL (3.2-5.2); ALKALINE PHOSPHATASE 152 U/L (40-129); ALT/SGPT 13 U/L (7.0-40); AST/SGOT 20 U/L (<34); BILIRUBIN,DIRECT 0.3 MG/DL (<0.4); BILIRUBIN,TOTAL 0.7 MG/DL (0.3-1.2); THYROID STIMULATING HORMONE 0.374 uIU/ML (0.55-4.78); TOTAL PROTEIN 7.4 G/DL (5.7-8.2)
[2024-12-14 13:24] LABS: AMPHETAMINES LEVEL URINE NEGATIVE (NEGATIVE); BARBITURATES URINE NEGATIVE (NEGATIVE); BENZODIAZEPINES URINE NEGATIVE (NEGATIVE); CANNABINOIDS URINE NEGATIVE (NEGATIVE); COCAINE METABOLITE URINE NEGATIVE (NEGATIVE); METHADONE URINE NEGATIVE (NEGATIVE); OPIATES URINE NEGATIVE (NEGATIVE); PHENCYCLIDINE URINE NEGATIVE (NEGATIVE)
[2024-12-14 16:50] VITALS: BP 143/87; TEMP 98; O2SAT 97
[2024-12-14] MEDS ORDERED: PANT40TA29 PO (16:57)
[2024-12-14] MEDS ORDERED: HYDR-3363 PO (16:57)
[2024-12-14] MEDS ORDERED: HOME MED LIST COMPLETE! XX SCH (17:00)
[2024-12-14] MEDS ORDERED: traZODone 50 MG TAB PO PRN (18:30)
[2024-12-14] MEDS ORDERED: IBUPROFEN 400MG TAB PO PRN (18:30)
[2024-12-14] MEDS ORDERED: MOM 30ML SUSPENSION UDC PO PRN (18:30)
[2024-12-14] MEDS ORDERED: MAALOX 30 ML SUSP *UDC PO PRN (18:30)
[2024-12-14] MEDS ORDERED: ACETAMINOPHEN 325 MG TAB PO PRN (18:30)
[2024-12-14] MEDS: diphenhydrAMINE 25MG CAP PO PRN (18:42)
[2024-12-15 06:54] VITALS: BP 130/82; TEMP 97.7; O2SAT 98
[2024-12-15 14:56] VITALS: BP 117/81; TEMP 97.6; O2SAT 95
[2024-12-15] MEDS: OLANZapine ORAL DISINTEGRATING TAB 5MG PO SCH (20:11)
[2024-12-16 06:46] VITALS: BP 129/80; TEMP 97; O2SAT 97
[2024-12-16 15:55] VITALS: BP 128/82; TEMP 97.4; O2SAT 100
[2024-12-17 06:43] VITALS: BP 152/86; TEMP 97.7; O2SAT 97
[2024-12-17] MEDS ORDERED: OLAN5ZYD PO (08:24)
== END 2024-12-17 12:35 | disposition home or self-care (01) | DRG 751 ==
LOC: M ED 08:15 → M ED INP 15:44 → M PSY 16:43
PROVIDERS: ADMIT Psychiatry & Neurology Psychiatry; ATTEND Psychiatry & Neurology Psychiatry
DX: F29 Unspecified psychosis not due to a substance or known physiological condition (principal); F43.20 Adjustment disorder, unspecified; R45.851 Suicidal ideations; Z79.899 Other long term (current) drug therapy; Z91.030 Bee allergy status; R10.9 Unspecified abdominal pain; F45.1 Undifferentiated somatoform disorder; F90.9 Attention-deficit hyperactivity disorder, unspecified type

== ENCOUNTER 2025-01-13 09:49 | Day surgery (SDC) | payer OTHER ==
[~2025-01-13] VITALS: Ht 167.6 cm; Wt 80.6 kg
[~2025-01-13 09:49] MED LIST changes: +LIDO1ADH93 TD; -LIDO5DIS41 TD; +OLAN5ZYD PO; +PANT40TA29 PO
[2025-01-13] MEDS ORDERED: fentaNYL 100 MCG/2 ML INJECTION As Ordered ONE (11:15)
[2025-01-13] MEDS ORDERED: LIDOCAINE 2% 100MG/5ML SDV (FOR ANES.) As Ordered ONE (11:18)
[2025-01-13] MEDS ORDERED: propofoL 200 MG/20 ML VIAL As Ordered ONE (11:18)
[2025-01-13 11:25] VITALS: TEMP 97.5
[2025-01-13 11:45] VITALS: BP 143/76; O2SAT 98
== END 2025-01-13 11:55 | disposition home or self-care (01) ==
LOC: M OPP 09:49
PROVIDERS: ATTEND Internal Medicine Gastroenterology
DX: K21.00 Gastro-esophageal reflux disease with esophagitis, without bleeding (principal); R10.13 Epigastric pain; Z79.899 Other long term (current) drug therapy; Z91.030 Bee allergy status
CPT/HCPCS: 43239; 88305; J3010

== ENCOUNTER 2025-08-17 21:40 | Emergency (ER) | payer OTHER ==
[~2025-08-17] VITALS: Ht 167.6 cm; Wt 91.3 kg
[~2025-08-17 21:40] MED LIST changes: -IBUP-1022; -IBUP-1022 PO; +IBUP600T42; +IBUP600T42 PO
[2025-08-18] MEDS: NS (Normal Saline) 0.9% 1,000 ML IV ONE (07:22)
[2025-08-18 07:28] LABS: BASO # 0.0 10^3/uL (0.0-0.2); BASO % 0.2 % (0.0-1.0); EOS # 0.0 10^3/uL (0.0-0.5); EOS % 0.0 % (0.0-3.0); LYMPH # 1.7 10^3/uL (1.5-5.0); LYMPH % 15.0 % (24.0-44.0); MONO # 1.0 10^3/uL (0.0-0.8); MONO % 8.7 % (2.0-8.0); NEUTROPHILS # 8.5 10^3/uL (1.5-8.5); NEUTROPHILS % 75.7 % (36.0-66.0); PLATELET COUNT, AUTOMATED 294 10^3/uL (150-450)
[2025-08-18 08:57] LABS: CALCIUM LEVEL 9.0 MG/DL (8.5-10.1); CARBON DIOXIDE LEVEL 26 MMOL/L (20-31); CHLORIDE LEVEL 102 MMOL/L (98-107); CK-MB VALUE MASS < 1.0 NG/ML (<3.6); CREATININE FOR GFR 0.82 MG/DL (0.70-1.30); GLOMERULAR FILTRATION RATE > 90.0 (>60); POTASSIUM SERUM 3.9 MMOL/L (3.5-5.1); SODIUM LEVEL 139 MMOL/L (136-145)
[2025-08-18 09:03] LABS: CPK CREATINE PHOSPHOKINASE 112 U/L (46-171)
[2025-08-18 09:25] VITALS: BP 125/63; TEMP 98.9; O2SAT 100
== END 2025-08-18 09:27 | disposition home or self-care (01) ==
LOC: M ED 21:40
DX: R00.0 Tachycardia, unspecified (principal); T40.715A Adverse effect of cannabis, initial encounter; K21.9 Gastro-esophageal reflux disease without esophagitis; Z91.030 Bee allergy status; Z79.899 Other long term (current) drug therapy

== ENCOUNTER 2025-08-21 13:14 | Emergency (ER) | payer OTHER ==
[~2025-08-21] VITALS: Ht 165.1 cm; Wt 90.0 kg
[2025-08-21 13:16] VITALS: BP 131/84; TEMP 97.8; O2SAT 97
[2025-08-21 13:39] LABS: BASO # 0.0 10^3/uL (0.0-0.2); BASO % 0.6 % (0.0-1.0); EOS # 0.0 10^3/uL (0.0-0.5); EOS % 0.2 % (0.0-3.0); LYMPH # 1.9 10^3/uL (1.5-5.0); LYMPH % 28.3 % (24.0-44.0); MONO # 0.5 10^3/uL (0.0-0.8); MONO % 8.3 % (2.0-8.0); NEUTROPHILS # 4.1 10^3/uL (1.5-8.5); NEUTROPHILS % 62.4 % (36.0-66.0); PLATELET COUNT, AUTOMATED 305 10^3/uL (150-450)
[2025-08-21 14:00] LABS: CK-MB VALUE MASS < 1.0 NG/ML (<3.6)
[2025-08-21 14:03] LABS: CALCIUM LEVEL 9.2 MG/DL (8.5-10.1); CARBON DIOXIDE LEVEL 24 MMOL/L (20-31); CHLORIDE LEVEL 106 MMOL/L (98-107); CREATININE FOR GFR 0.90 MG/DL (0.70-1.30); GLOMERULAR FILTRATION RATE > 90.0 (>60); POTASSIUM SERUM 4.3 MMOL/L (3.5-5.1); SODIUM LEVEL 140 MMOL/L (136-145)
[2025-08-21 14:04] LABS: CPK CREATINE PHOSPHOKINASE 65 U/L (46-171)
[2025-08-21] MEDS: ACETAMINOPHEN 500 MG TAB PO ONE (15:10)
== END 2025-08-21 16:28 | disposition home or self-care (01) ==
LOC: M ED 15:17
DX: R07.9 Chest pain, unspecified (principal); Z91.030 Bee allergy status; Z79.899 Other long term (current) drug therapy